=== PATIENT | male | born 1940 | race Caucasian/White ===

== ENCOUNTER 2021-03-06 11:44 | Emergency (ER) | payer MEDICARE, SELFPAY ==
[2021-03-06 11:54] VITALS: BP 162/85; PULSE 78; RESP 15; TEMP 36.5; O2SAT 95; BMI 37.4
--- NOTE | 2021-03-06 12:06 | XR_ITS ---
WS: [id number] LEFT KNEE: 3 VIEW(S) TECHNIQUE: AP, oblique(s) and lateral. HISTORY: knee pain after fall 1 week ago COMPARISON: None available. Mild narrowing of the joint spaces. 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 Small suprapatellar joint effusion and soft tissue edema. XR/XR knee LT 3V* [id number] IMPRESSION: 1. Mild tricompartment osteoarthritis. 2. No acute fracture identified. 3. Small suprapatellar joint effusion and soft tissue edema.
--- NOTE | 2021-03-06 13:05 | W.ED.EXTPRO ---
Documented by User: Antonia Wilson PA-C 03/06/21 14:30 HPI - Extremity Problem General: Chief complaint: Extremity Injury, Lower Stated complaint: Injury to Left Knee Time Seen by Provider: 03/06/21 12:07 Source: patient Mode of arrival: wheelchair Limitations: no limitations History of Present Illness: HPI Narrative: 80-year-old male presents to the ER today with for continued left knee pain. Patient reports a couple of weeks ago he twisted the left knee and then 1 week ago was outside and fell, landing on his left knee. Patient followed up with a clinic in [place] and had an x-ray done and was told there was some arthritis. Patient then reports twisting his knee again this last week and as of today he could hardly bear weight. Patient reports swelling and constant pain in the back of his knee. He denies any prior injury to this leg. Denies any redness. Patient is unable to take NSAIDs and does not take anything on a regular basis for pain. Patient denies any relevant past medical history. Patient's PCP is Dr. Kramer. Complaint: extremity pain and extremity swelling Onset (ago): week(s) Pain Consistency: constant Location: left and knee Severity scale (1-10): 8 Quality: aching Radiation: distal Relieving factors: nothing Exacerbating factors: range of motion, weight bearing and walking Associated symptoms: Deny chest pain, fever(s) or rash Review of Systems General: Reports: 10 or more systems reviewed and unremarkable except in HPI and below Const: Denies: fever(s), chills or body aches ENMT: Denies: throat pain, nasal discharge or nasal congestion Card: Denies: chest pain or palpitations Resp: Denies: dyspnea or wheezing GI: Denies: abdominal pain, nausea, vomiting, diarrhea or constipation : Denies: flank pain Musc: Reports: extremity pain (Left knee), extremity swelling (Left knee), joint swelling (Left knee) and limited range of motion (Left knee secondary to pain and swelling); Denies: neck pain, back pain or joint redness Skin/Breast: Denies: rash or erythema Neuro: Denies: headache(s) Psych: Denies: anxiety or depression Physical Exam Const: COMMON NORMALS: average body habitus and patient oriented x3 GENERAL APPEARANCE: cooperative and comfortable HENMT: COMMON NORMALS: normocephalic, Normal external nose present and moist oral mucous membranes HEAD & SCALP: normocephalic NOSE: Normal external nose present Eye: COMMON NORMALS: conjunctivae normal CONJUNCTIVA: Yes conjunctivae normal Neck/C-Spine: COMMON NORMALS: full ROM Resp: COMMON NORMALS: normal respiratory effort and No retractions EFFORT & INSPECTION: Yes able to speak in complete sentences Cardio: COMMON NORMALS: regular rate and regular rhythm RATE: regular rate RHYTHM: regular rhythm Extremity: COMMON NORMALS: no clubbing, cyanosis or edema, no calf tenderness and no pedal edema GENERAL: Yes normal exam except as noted LEFT LOWER EXTREMITY: Yes knee joint (No joint line tenderness noted, ligaments stable, posterior knee TTP) Left knee: Yes inspection, No ROM and Yes neurovascular exam Neuro: COMMON NORMALS: patient oriented x3 and moves all extremities Psych: COMMON NORMALS: mental status grossly normal, Normal thought process present, cooperative, normal affect and speech normal SPEECH: Yes normal speech THOUGHT PROCESS: Normal thought process present Skin: COMMON NORMALS: no rashes or lesions noted and no wounds GENERAL SKIN EXAM: no rashes or lesions noted Course ED course: Patient presents to the ER today for left knee pain. He has been seen for this in the past at a walk-in clinic and had an x-ray done and was told there was some arthritis. Patient does report twisting it since that time. We will do x-ray in ER and explained to patient that likely he would need an MRI and further work-up done by his PCP. Vital Signs: Vital signs: Vital Signs Temperature 97.7 F 03/06/21 11:54 Pulse Rate 72 03/06/21 13:38 Respiratory Rate 16 03/06/21 13:38 Blood Pressure 133/80 03/06/21 13:38 Pulse Oximetry 97 03/06/21 13:38 Critical Care Time Critical Care Time: Critical Care Time: No MDM - Extremity (Nontraumatic) MDM Narrative: Medical decision making narrative: 80-year-old male presents to the ER today for left knee pain. Patient has had multiple injuries on it in the last 1 to 2 weeks. Patient did have imaging done a week ago but has since twisted it. We did an x-ray in ER which indicates significant arthritis in addition to some effusion noted superior to the patella. This is the location where patient reports falling on his knee so likely this is related to a contusion. Knee appears stable on exam with pain mostly in the posterior compartment. Discussed findings with patient. Likely this is arthritis that is inflamed. Patient is unable to take anti-inflammatories at this time. He takes no medications regularly. We will send patient home with hydrocodone for pain as he is unable to bear weight at this time. Discussed with patient he needs to follow-up with his primary care doctor within 1 week to discuss further imaging and other possible treatments. Recommended rest, ice, and a knee brace. Return to the ER with any new or worsening symptoms. Imaging Data^: Other Xray: Radi[facility]'s impression: [facility] [address] [place] [address] XRay Report Signed Patient: Adonis Means Unit #: [id number] : 1940 Age/Sex: 80 / M ADM Date: 03/06/21 Loc: ER Room/Bed: Attending Dr: Ordering Provider/Ordering MD: Antonia Wilson Date of Service: 03/06/21 Procedure(s): XR knee LT 3V* [id number] Accession Number(s): [id number] Report Number: [id number] WS: [id number] LEFT KNEE: 3 VIEW(S) TECHNIQUE: AP, oblique(s) and lateral. HISTORY: knee pain after fall 1 week ago COMPARISON: None available. Mild narrowing of the joint spaces. Chondrocalcinosis in the medial and lateral compartments are enthesopathy at the distal quadriceps tendon and proximal patellar tendons. Small suprapatellar joint effusion and soft tissue edema. XR/XR knee LT 3V* [id number] IMPRESSION: 1. Mild tricompartment osteoarthritis. 2. No acute fracture identified. 3. Small suprapatellar joint effusion and soft tissue edema. Dictated By: Marilia Huang DO Signed By: Marilia Huang DO Signed Date/Time: 03/06/21 1235 DD/ 1234 Discharge Plan Discharge Patient Disposition: Home Clinical Impression: Acute pain of left knee Condition: Stable Prescriptions: New hydrocodone-acetaminophen 5-325 mg tablet 1 tab PO Q8H PRN (Reason: pain) Qty: 14 RF: 0 Discharge Orders: Discharge ED (Routine); Ordered 03/06/21 Ordered By: Antonia Wilson Referrals: Remington Kramer DO [Primary Care Provider] - Discharge Diet: Usual diet Discharge Activity: Limit activity as instructed Patient Instructions: Opioid Safety Activity Restrictions/Additional Instructions: Take hydrocodone as prescribed for pain. Rest, ice, elevation recommended. Elastic knee brace recommended. Follow-up with PCP in 7 to 10 days. Return to the ER with any new or worsening symptoms. Coding Level of Care Code ED Faa Certified Powerplant Mechanic for Chg Fwd Exam Comprehensive Documented by User: Holden Quarles DO 03/06/21 16:55 HPI - Extremity Problem General: Chief complaint: Extremity Injury, Lower Stated complaint: Injury to Left Knee Time Seen by Provider: 03/06/21 12:07 Course Vital Signs: Vital signs: Vital Signs Temperature 97.7 F 03/06/21 11:54 Pulse Rate 72 03/06/21 13:38 Respiratory Rate 16 03/06/21 13:38 Blood Pressure 133/80 03/06/21 13:38 Pulse Oximetry 97 03/06/21 13:38 MDM - Extremity (Nontraumatic) MDM Narrative: Medical decision making narrative: Chart reviewed and patient discussed with midlevel. Agree with assessment and plan. Discharge Plan Discharge Patient Disposition: Home Clinical Impression: Acute pain of left knee Condition: Stable Prescriptions: New hydrocodone-acetaminophen 5-325 mg tablet 1 tab PO Q8H PRN (Reason: pain) Qty: 14 RF: 0 Discharge Orders: Discharge ED (Routine); Ordered 03/06/21 Ordered By: Antonia Wilson Referrals: Remington Kramer DO [Primary Care Provider] - Discharge Diet: Usual diet Discharge Activity: Limit activity as instructed Patient Instructions: Opioid Safety Activity Restrictions/Additional Instructions: Take hydrocodone as prescribed for pain. Rest, ice, elevation recommended. Elastic knee brace recommended. Follow-up with PCP in 7 to 10 days. Return to the ER with any new or worsening symptoms. Coding Level of Care Code ED Faa Certified Powerplant Mechanic for Chg Fwd Exam Comprehensive
[2021-03-06 13:38] VITALS: BP 133/80; PULSE 72; RESP 16; O2SAT 97
== END 2021-03-06 13:39 | disposition home or self-care (01) ==
PROVIDERS: Emergency Provider Physician Assistant; PCP Family Medicine
DX: M25.562 Pain in left knee (principal)
CPT/HCPCS: 73562; 99282

== ENCOUNTER 2021-10-02 21:55 | Observation (INO) | payer MEDICARE, SELFPAY ==
[2021-10-02 22:58] VITALS: BMI 37.2
[2021-10-02 23:00] VITALS: BP 135/91; PULSE 125; RESP 16; TEMP 37.2; O2SAT 94
--- NOTE | 2021-10-02 23:04 | XRR_ITS ---
PROCEDURE INFORMATION: Exam: XR Chest Exam date and time: 10/02/2021 11:18 PM Age: 80 years old Clinical indication: Shortness of breath; Additional info: SOB TECHNIQUE: Imaging protocol: Radiologic exam of the chest. Views: 1 view. COMPARISON: No relevant prior studies available. FINDINGS: Lungs: Left lower lobe atelectasis versus infiltrate. Pleural spaces: Unremarkable. No pleural effusion. No pneumothorax. Heart/Mediastinum: Cardiomegaly. Bones/joints: Unremarkable. XR/XR chest 1V portable [id number] IMPRESSION: 1. Cardiomegaly. 2. Left lower lobe atelectasis versus infiltrate.
--- NOTE | 2021-10-02 23:04 | CTR_ITS ---
PROCEDURE INFORMATION: Exam: CT Head Without Contrast Exam date and time: 10/02/2021 11:15 PM Age: 80 years old Clinical indication: Walking, difficulty and weakness, extremity; Bilateral TECHNIQUE: Imaging protocol: Computed tomography of the head without contrast. Radiation optimization: All CT scans at this facility use at least one of these dose optimization techniques: automated exposure control; mA and/or kV adjustment per patient size (includes targeted exams where dose is matched to clinical indication); or iterative reconstruction. COMPARISON: No relevant prior studies available. RADIATION DOSE METRICS: Total DLP (mGy-cm): 995.44 FINDINGS: Brain: Large amount of diffuse white matter disease likely reflecting chronic microvascular ischemic changes. Cerebral ventricles: No ventriculomegaly. Paranasal sinuses: Right maxillary sinus 8.7 mm mucous retention cyst versus polyp incompletely visualized. Mastoid air cells: Visualized mastoid air cells are well aerated. Bones/joints: Unremarkable. No acute fracture. Soft tissues: Unremarkable. CT/CT head wo con* [id number] IMPRESSION: Negative for intracranial hemorrhage or mass effect.
--- NOTE | 2021-10-02 23:05 | ECG_ITS ---
[facility] Test Date: 2021-10-02 Pat Name: Adonis Means Department: Room: Gender: Male Regional Hr Manager: : 1940 Requested By: Rosie Gan Order Number: [id number] Wendy MD: Maryam Cárdenas M.D. Measurements Intervals [place] Rate: 102 P: 39 MA: 197 QRS: 26 QRSD: 138 T: 6 QT: 361 QTc: 472 Interpretive Statements SINUS TACHYCARDIA RIGHT BUNDLE BRANCH BLOCK [120+ ms QRS DURATION, UPRIGHT V1, 40+ ms S IN I/aVL/V4/V5/V6] No previous ECG available for comparison Electronically Signed On 10-03-2021 22:25:34 CDT by Maryam Cárdenas M.D. [id number]
--- NOTE | 2021-10-02 23:24 | ED_ITS ---
HPI - Weakness General: Chief complaint: Weakness Stated complaint: weakness Time Seen by Provider: 10/02/21 22:58 Source: patient and EMS Mode of arrival: EMS Limitations: no limitations History of Present Illness: 80-year-old male states that he has been having increasing weakness over the last 2 months. He states that he got much worse today and he states he not been able to get out of bed or ambulate at all. He does live at home with family states that he was unable to get out of bed today. He denies any pain anywhere. He is tachycardic here he has had some low-grade fevers as well. Denies any vomiting or diarrhea. He has had no confusion. He is able answer all my questions appropriately. Associated symptoms: Denies chest pain, chills, dysuria, easy bruising, fever(s), nausea or vomiting Review of Systems Const: Denies: fever(s), chills, body aches or change in appetite Eyes: Denies: blurry vision or eye discomfort ENMT: Denies: throat pain or dental pain Card: Denies: chest pain Resp: Denies: dyspnea GI: Denies: abdominal pain, nausea, vomiting or diarrhea : Denies: dysuria Musc: Denies: neck pain or back pain Skin/Breast: Denies: rash Neuro: Reports: weakness in extremities Psych: Denies: depression Chandana/Lymph: Denies: easy bruising All/Imm: Denies: urticaria PFS ED PFSH: Surgical History No pertinent past surgical history Social History (Updated 10/02/21 @ 23:25 by Rosie Gan MD) Substance/Drug Use: never Physical Exam Const: COMMON NORMALS: no acute distress, patient oriented x3 and healthy appearing HENMT: COMMON NORMALS: normocephalic and atraumatic HEAD & SCALP: normocep halic and atraumatic Eye: COMMON NORMALS: Equal, round and reactive pupils present and EOMs intact bilaterally PUPIL: Yes Equal, round and reactive pupils present Neck/C-Spine: COMMON NORMALS: full ROM and supple Chest: COMMONS NORMALS: normal inspection of the chest and normal palpation of entire chest wall Resp: COMMON NORMALS: normal respiratory effort, No retractions, No use of accessory muscles and clear to auscultation bilaterally AUSCULTATION: clear to auscultation bilaterally Cardio: COMMON NORMALS: regular rhythm and No murmurs present (Cardio) R ATE: tachycardic RHYTHM: regular rhythm GI: COMMON NORMALS: Normal to inspection, nondistended, normoactive bowel sounds present, Soft to palpation, non-tender and no masses PALPATION: Yes Soft to palpation Extremity: COMMON NORMALS: normal to inspection and full ROM Neuro: COMMON NORMALS: patient oriented x3, moves all extremities and no focal motor deficits Psych: COMMON NORMALS: mental status grossly normal, Normal thought process present and cooperative THOUGHT PROCESS: Normal thought process present Skin: COMMON NORMALS: no rashes or lesions noted and no wounds GENERAL SKIN EXAM: no rashes or lesions noted Course Vital Signs: Vital signs: Vital Signs Temperature 99.0 F 10/02/21 23:00 Pulse Rate 125 H 10/02/21 23:00 Respiratory Rate 16 10/02/21 23:00 Blood Pressure 135/91 10/02/21 23:00 Pulse Oximetry 94 10/02/21 23:00 MDM - Weakness Medical Decision Making Patient presents with generalized weakness with some likely dehydration he is hyponatremic as well with an elevated lactate. Did have elevated D-dimer CT showed no signs of pulm embolism or pneumonia. Did get blood cultures and started IV antibiotics in case of sepsis. Urinalysis here is normal as well besides some ketones. His lactate is improving after IV fluids his heart rate is improving as well I spoke to hospitalist will admit at this time. Lab Data : 10/02/21 23:33 10/02/21 23:33 Radiology Impressions Chest X-Ray 10/02/21 23:04 IMPRESSION: 1. Cardiomegaly. 2. Left lower lobe atelectasis versus infiltrate. Head CT 10/02/21 23:04 IMPRESSION: Negative for intracranial hemorrhage or mass effect. Chest CTA 10/03/21 00:09 IMPRESSION: 1. No pulmonary embolism identified. 2. No significant airspace consolidation concerning for pneumonia. 3. Right hilar lymphadenopathy versus mass measuring 2.7 x 1.7 cm. Recommend follow-up evaluation. 4. Cholelithiasis without evidence of acute cholecystitis. Laboratory Results WBC 12.2 10^3/uL (4.0-10.0) H 10/02/21 23:33 RBC 4.71 10^6/uL (4.1-5.3) 10/02/21 23: Hgb 15.1 g/dL (11.7-16.6) 10/02/21 23: Hct 43.6 % (42.0-52.0) 10/02/21 23: MCV 92.6 fl (80-94) 10/02/21 23: MCH 32.1 pg (28.0-34.0) 10/02/21 23: MCHC 34.6 g/dL (30.0-36.0) 10/02/21 23: RDW 12.7 % (12.1-15.1) 10/02/21: Plt Count 153 10^3/cmm (130-400) 10/02/21 23: MPV 10.3 fL (7.4-10.4) 10/02/21 23: Neut % (Auto) 91.3 % 10/02/21 23: Lymph % (Auto) 4.1 % 10/02/21 23: [place] % (Auto) 3.7 % 10/02/21 23: Eos % (Auto) 0.0 % 10/02/21 23: Baso % (Auto) 0.1 % 10/02/21: Neut # (Auto) 11.16 10^3/uL (1.8-7.7) H 10/02/21: Lymph # (Auto) 0.5 10^3/uL (0.8-4.8) L 10/02/21 23: [place] # (Auto) 0.5 10^3/uL (0.2-0.9) 10/02/21 23: Eos # (Auto) 0.0 10^3/uL (0.0-0.8) 10/02/21: Baso # (Auto) 0.0 10^3/uL (0.0-0.1) 10/02/21 23: Nucleated RBC % (auto) 0 % 10/02/21 23: Nucleated RBCs # 0.0 /100WBC 10/02/21 23: PT 14.60 SECONDS (12.1-14.9) 10/02/21 23:33 INR 1.11 (0.8-1.2) 10/02/21 23:33 D-Dimer 1.35 ug/mIFEU (0-0.59) H 10/02/21 23:33 Sodium 125 mmol/L (136-145) L 10/02/21 23:33 Potassium 3.8 mmol/L (3.5-5.1) 10/02/21 23:33 Chloride 90 mmol/L (98-107) L 10/02/21 23:33 Carbon Dioxide 23 mmol/L (22-29) 10/02/21 23:33 Anion Gap 15.8 (5-19) 10/02/21 23:33 BUN 23 mg/dL (8-23) 10/02/21 23:33 Creatinine 1.2 mg/dL (0.7-1.2) 10/02/21 23:33 GFR Calculation Not Reportable 10/02/21 23: Glucose 249 mg/dL (65-115) H 10/02/21 23:33 Calculated Osmolality 272 mOsm/kg (285-295) L 10/02/21 23:33 Lactate 3.4 mmol/L (0.5-2.2) H 10/03/21 02:21 Calcium 8.6 mg/dL (8.5-10.5) 10/02/21 23:33 Magnesium 1.6 mg/dL (1.7-2.3) L 10/02/21 23:33 Total Bilirubin 0.5 mg/dL (0.15-1.2) 10/02/21 23:33 AST 66 U/L (0-40) H 10/02/21 23:33 ALT 61 U/L (0-41) H 10/02/21 23:33 Alkaline Phosphatase 80 IU/L (40-130) 10/02/21 23:33 NT-Pro-B Natriuret Pep 146 pg/mL (0-450) 10/02/21 23:33 Total Protein 7.7 g/dL (6.6-8.7) 10/02/21 23:33 Albumin 4.1 g/dL (3.5-5.2) 10/02/21 23:33 Globulin 3.6 g/dL (1.3-4.6) 10/02/21 23:33 Urine Color Yellow (Yellow) 10/03/21 01:30 Urine Appearance Clear (CLEAR) 10/03/21 01:30 Urine pH 5 (5-7) 10/03/21 01:30 Ur Specific [place] 1.025 (1.005-1.030) 10/03/21 01:30 Urine Protein Trace (Negative) 10/03/21 01:30 Urine Glucose (UA) 1+ (Normal) H 10/03/21 01:30 Urine Ketones 1+ (Negative) H 10/03/21 01:30 Urine Blood Neg (Negative) 10/03/21 01:30 Urine Nitrate Negative (Negative) 10/03/21 01:30 Urine Bilirubin 1+ (Negative) H 10/03/21 01:30 Urine Urobilinogen Norm mg/dL (Negative) 10/03/21 01:30 Ur Leukocyte Esterase Negative (Negative) 10/03/21 01:30 Urine RBC 0-4 /hpf (0-2) H 10/03/21 01:30 Urine WBC 0-4 /hpf (0-5) H 10/03/21 01:30 Ur Squamous Epith Cells 0-4 /hpf (0-5) H 10/03/21 01:30 Amorphous Sediment Not Reportable 10/03/21 01:30 Urine Bacteria Trace /hpf (NONE) 10/03/21 01:30 Urine Mucus 2+ /hpf 10/03/21 01:30 SARS-CoV-2 Ag (Rapid) Negative (Negative) 10/03/21 00:15 EKG Data EKG 1: I personally reviewed and interpreted this EKG as follows: EKG interpretation date: 10/03/21 EKG interpretation time: 23:27 Interpretation: sinus tach hr [address] or t wave abnormalities qrs 138 qtc 420 Discharge Plan Discharge Patient Disposition: Admitted As Inpatient Admit Provider: Ralf Gonzales Clinical Impression: Weakness, Hyponatremia Condition: Stable Coding Level of Care Code ED Pickle Water Pump Operator for Chg Fwd Exam Comprehensive
[2021-10-03 00:02] LABS: Basophils % 0.1 %; Hematocrit 43.6 % (42.0-52.0); Hemoglobin 15.1 g/dL (11.7-16.6); Lymphocytes # 0.5 10^3/uL (0.8-4.8); Lymphocytes % 4.1 %; Mean Corpuscular HGB Conc 34.6 g/dL (30.0-36.0); Mean Corpuscular Hemoglobin 32.1 pg (28.0-34.0); Mean Corpuscular Volume 92.6 fl (80-94); Mean Platelet Volume 10.3 fL (7.4-10.4); Monocytes # 0.5 10^3/uL (0.2-0.9); Monocytes % 3.7 %; Neutrophils # 11.16 10^3/uL (1.8-7.7); Neutrophils % 91.3 %; Nucleated Red Blood Cells % 0 %; Platelet Count 153 10^3/cmm (130-400); Red Blood Count 4.71 10^6/uL (4.1-5.3); Red Cell Distribution Width 12.7 % (12.1-15.1); White Blood Count 12.2 10^3/uL (4.0-10.0)
[2021-10-03 00:05] LABS: INR 1.11 (0.8-1.2)
[2021-10-03 00:08] LABS: D Dimer 1.35 ug/mIFEU (0-0.59)
--- NOTE | 2021-10-03 00:09 | CTR_ITS ---
PROCEDURE INFORMATION: Exam: CTA Chest With Contrast Exam date and time: 10/03/2021 2:05 AM Age: 80 years old Clinical indication: Shortness of breath; Additional info: SOB TECHNIQUE: Imaging protocol: Computed tomographic angiography of the chest with contrast. 3D rendering (Not supervised by radiologist): MIP and/or 3D reconstructed images were created by the technologist. Radiation optimization: All CT scans at this facility use at least one of these dose optimization techniques: automated exposure control; mA and/or kV adjustment per patient size (includes targeted exams where dose is matched to clinical indication); or iterative reconstruction. Contrast material: OMNI 350; Contrast volume: 75 ml; Contrast route: INTRAVENOUS (IV); COMPARISON: CR (CHEST, ) 10/02/2021 11:18 PM RADIATION DOSE METRICS: Total DLP (mGy-cm): 617.12 FINDINGS: Pulmonary arteries: No central or segmental filling pulmonary artery filling defects are identified. Aorta: Unremarkable. The aorta is normal in course and caliber. Lungs: Minimal dependent bibasilar atelectasis.No significant airspace consolidation concerning for pneumonia. Pleural spaces: No pneumothorax. No pleural effusion. Heart: Coronary artery calcifications noted. Lymph nodes: Mildly prominent but not significantly enlarged right posterior paratracheal lymph node (axial series 2, image 95). Multiple additional nonenlarged mediastinal lymph nodes identified. Right hilar lymphadenopathy versus mass measuring 2.7 x 1.7 cm (axial series 2, image 96). Gallbladder and bile ducts: Multiple calcified gallstones noted. No gallbladder wall thickening or pericholecystic fat stranding or fluid. Bones/joints: Multilevel degenerative changes in the spine. Soft tissues: Unremarkable. CT/CT angio chest PE protcl [id number] IMPRESSION: 1. No pulmonary embolism identified. 2. No significant airspace consolidation concerning for pneumonia. 3. Right hilar lymphadenopathy versus mass measuring 2.7 x 1.7 cm. Recommend follow-up evaluation. 4. Cholelithiasis without evidence of acute cholecystitis.
[2021-10-03 00:19] LABS: Alanine Aminotransferase 61 U/L (0-41); Albumin Level 4.1 g/dL (3.5-5.2); Alkaline Phosphatase 80 IU/L (40-130); Anion Gap 15.8 (5-19); Aspartate Amino Transferase 66 U/L (0-40); Blood Urea Nitrogen 23 mg/dL (8-23); Calcium 8.6 mg/dL (8.5-10.5); Carbon Dioxide 23 mmol/L (22-29); Chloride 90 mmol/L (98-107); Globulin 3.6 g/dL (1.3-4.6); Glucose 249 mg/dL (65-115); Lactate (Lactic Acid level) 4.4 mmol/L (0.5-2.2); Magnesium 1.6 mg/dL (1.7-2.3); NT Pro B Type Natriuretic Pept 146 pg/mL (0-450); Osmolality Calculated 272 mOsm/kg (285-295); Potassium 3.8 mmol/L (3.5-5.1); Sodium 125 mmol/L (136-145); Total Bilirubin 0.5 mg/dL (0.15-1.2); Total Protein 7.7 g/dL (6.6-8.7)
[2021-10-03] MEDS: sodium chloride 0.9% 1,000 ML 999 ML IV ×2 (00:50→01:09)
[2021-10-03] MEDS: acetaminophen 325 mg Tablet 650 MG PO (00:50)
[2021-10-03 00:57] LABS: SARS Covid-2 Antigen Negative (Negative)
[2021-10-03] MEDS: cefTRIAXone 1,000 MG in sodium chloride 0.9% (plus) 50 ML 100 MG IV (01:09)
[2021-10-03 01:54] LABS: Add Urine Microscopic? YES; Bilirubin Urine 1+ (Negative); Blood Urine Neg (Negative); Glucose Urine UA 1+ (Normal); Ketones Urine 1+ (Negative); Leukocyte Esterase Urine Negative (Negative); Nitrate Urine Negative (Negative); Protein Urine Trace (Negative); Specific Gravity, Urine 1.025 (1.005-1.030); Urine Appearance Clear (CLEAR); Urine Color Yellow (Yellow); Urobilinogen Urine Norm (Negative); pH Urine 5 (5-7)
[2021-10-03 01:55] LABS: Add Urine Culture? No; Bacteria Urine TRACE /hpf; Mucus Urine 2+ /hpf; RBC Urine 0-4 /hpf (0-2); Squamous Epithelial Cell Urine 0-4 /hpf (0-5); WBC Urine 0-4 /hpf (0-5)
[2021-10-03] MEDS: iohexol 350 mg/mL 100 mL Btl IV (02:22)
[2021-10-03] MEDS: azithromycin 500 MG in sodium chloride 0.9% 250 ML 250 MG IV (02:24)
[2021-10-03 02:50] LABS: Lactate (Lactic Acid level) 3.4 mmol/L (0.5-2.2)
--- NOTE | 2021-10-03 04:52 | PM.HP ---
Providers/Chief Complaint Admitting Physician: Ralf Gonzales MD Primary Care Provider: Remington Kramer DO Chief Complaint: weakness History of Present Illness Adonis Means is a 80 year old male with past medical history diabetes Was brought in with chief complaint of worsening generalized weakness going on for the last 2 months, Today came to the hospital because the generalized weakness has worsened to the point that he has not been able to get out of the bed, or ambulate.He is also complaining of difficulty with ambulation, says that he stumbles at times. Denies any loss of weight, loss of appetite, cough fever, he is a non-smoker. Upon arrival in the ER he was worked up for above-mentioned: Pertinent imaging studies: CT head without contrast: No acute intracranial pathology CTA chest: No infiltrates no pulmonary embolism, Right hilar lymphadenopathy versus mass measuring 2.7 x 1.7 cm. EKG: Sinus tachycardia Pertinent labs: WBC 12.2, H&H: 15/ 43 plt : 153 , serum sodium 135 serum potassium 3.8 BUN serum creatinine 23 / 1.2 , lactic acid 4.4-> Repeat lactic acid 3.4, urinalysis clean Review of Systems General: Reports: 10 or more systems reviewed and unremarkable except in HPI and below Const: Denies: fever(s), chills, body aches, change in appetite or diaphoresis Card: Denies: palpitations, edema, swelling of feet/ankles, dyspnea on exertion, orthopnea or leg pain with exertion Resp: Denies: dyspnea, productive cough, wheezing or pain on inspiration GI: Denies: abdominal pain, nausea, vomiting, diarrhea or constipation : Denies: flank pain or difficulty urinating Musc: Denies: back pain, extremity pain or extremity swelling Neuro: Reports: difficulty walking; Denies: headache(s) or confusion Medications/Allergies Home Medications Medication Instructions Recorded Confirmed Last Taken Type atorvastatin 10 mg tablet 10 mg PO DAILY 10/03/21 10/03/21 Unknown History doxazosin 4 mg tablet 4 mg PO BEDTIME #1 tab 10/03/21 Unknown Rx finasteride 5 mg tablet 10 mg PO DAILY 10/03/21 10/03/21 Unknown History glimepiride 2 mg tablet 2 mg PO DAILY 10/03/21 10/03/21 Unknown History levothyroxine 137 mcg tablet 137 mcg PO DAILY 10/03/21 10/03/21 Unknown History Allergies Allergy/AdvReac Type Severity Reaction Status Date / Time NSAIDS (Non-Steroidal Allergy ALGY-Anaphy Verified 10/03/21 08:57 Anti-Inflamma laxis Penicillins Allergy ALGY-Rash Verified 10/03/21 08:57 PFSH Acute PFSH: Surgical History No pertinent past surgical history Vitals/I&O/Wt Last Vital Signs Temp 99.0 F 10/02/21 23:00 Pulse 125 H 10/02/21 23:00 Resp 16 10/02/21 23:00 BP 135/91 10/02/21 23:00 Pulse Ox 94 10/02/21 23:00 Weight last 48 hrs Weight 111.13 kg Physical Exam Const: COMMON NORMALS: patient oriented x3 HENMT: COMMON NORMALS: normocephalic and atraumatic HEAD & SCALP: normocephalic and atraumatic Chest: CHEST: Yes Symmetrical chest wall rise Resp: COMMON NORMALS: normal respiratory effort, No retractions, No use of accessory muscles and clear to auscultation bilaterally EFFORT & INSPECTION: Yes symmetric chest movement AUSCULTATION: clear to auscultation bilaterally Cardio: COMMON NORMALS: regular rate, regular rhythm, S1 normal heart sound present, S2 normal heart sound present, No gallops present (Cardio), No murmurs present (Cardio), No rub (Cardio) and Peripheral pulses 2+ throughout RATE: regular rate RHYTHM: regular rhythm HEART SOUNDS: S1 normal heart sound present and S2 normal heart sound present PERIPHERAL PULSES: Peripheral pulses 2+ throughout GI: COMMON NORMALS: Normal to inspection, nondistended, normoactive bowel sounds present, Soft to palpation, non-tender, No hepatosplenomegaly present and no masses AUSCULTATION: Yes normoactive bowel sounds PALPATION: Yes Soft to palpation and Yes No hepatosplenomegaly present RECTAL EXAM: Yes deferred Extremity: COMMON NORMALS: no clubbing, cyanosis or edema and no pedal edema Neuro: COMMON NORMALS: patient oriented x3 Data : 10/02/21 23:33 10/03/21 08:35 Micro: Microbiology 10/02/21 23:36 Blood Culture - Preliminary Blood SPECIMEN COLLECTED 10/02/21 23:33 Blood Culture - Preliminary Blood SPECIMEN COLLECTED A&P Assessment and plan (1) Weakness: Status: Acute (2) Hyponatremia: Status: Acute (3) Lactic acid acidosis: Status: Acute Plan 80 year old male with past medical history diabetes Was brought in with chief complaint of worsening generalized weakness going on for the last 2 months, today came to the hospital because the generalized weakness has worsened to the point that he has not been able to get out of the bed, or ambulate.He is also complaining of difficulty with ambulation, says that he stumbles at times. Assessment: Hyponatremia Lactic acidosis Dehydration Right hilar lymphadenopathy versus mass measuring 2.7 x 1.7 cm Sinus tachycardia Plan: Follow blood culture Urine culture Continue IV hydration with normal saline 125 cc an hour Follow procalcitonin Follow repeat lactic acid Monitor BMP every 4 hours TSH Cortisol Random urine sodium Urine specific gravity: 1.02 Urine osmolality Serum osmolality Patient will need repeat imaging study for right hilar finding. Physical therapy Orthostatic vital signs check CODE STATUS: Full code DVT prophylaxis: On Lovenox Attestations Medical Necessity Statement*: Patient is to be in hospital for management of hyponatremia lactic acidosis, need for IV hydration.Anticipated LOS Greater then 2 midnights. Time Spent in Patient Care: Greater than 35 minutes (>than 50% of time spent in counselling and/or direct pt care on unit). 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
[2021-10-03 05:25] VITALS: PULSE 88; O2SAT 96
[2021-10-03 06:37] VITALS: BP 135/91; PULSE 88; RESP 18; O2SAT 93
[2021-10-03] MEDS: sodium chloride 0.9% 1,000 ML 125 ML IV (06:37)
[2021-10-03] MEDS: enoxaparin 40 mg/0.4 mL Syringe SUBCUT (06:37)
[2021-10-03 07:40] LABS: Glucose Point of Care 148 mg/dL (70-110)
[2021-10-03 07:49] LABS: Urine Random Sodium 47 mmol/L
[2021-10-03] MEDS: insulin lispro 100 unit/1 mL SUBCUT ×2 (07:58→11:56)
--- NOTE | 2021-10-03 08:40 | XR_ITS ---
WS: [id number] Exam: XR lumbar spine 2-3V* [id number] Date/Time of Exam: 10/03/2021 8:49 AM Reason For Exam: leg weakness No acute fracture or dislocation. There is interbody fusion of the spine from L4 to S1 with pedicle s crews and posterior rods. Disc implants are noted at L4-5 and L5-S1. Mild spondylosis. Facet DJD at a ll levels. No sign of hardware failure. Mild spondylosis. Radiographic contrast noted in the kidneys and urinary bladder. Partial fusion of the left SI joint. XR/XR lumbar spine 2-3V* [id number] IMPRESSION: 1. Intact lumbosacral fusion in good alignment. 2. No fracture or dislocation. 3. Degenerative changes.
[2021-10-03 08:46] VITALS: BP 135/91; PULSE 88; RESP 18; TEMP 37.2; O2SAT 93
[2021-10-03 09:04] VITALS: BP 120/56; BP 125/64; BP 137/74; PULSE 75; PULSE 87; PULSE 91
[2021-10-03 09:12] LABS: Cortisol Random 26.35 ug/dL (2.47-19.5); Hepatitis A Antibody IgM Non-Reactive (Nonreactive); Hepatitis B Core IgM Non-Reactive (Nonreactive); Hepatitis B Surface Antigen Non-Reactive (Nonreactive); Hepatitis C Virus Antibody Non-Reactive (Nonreactive)
[2021-10-03 09:13] LABS: Anion Gap 13.6 (5-19); Blood Urea Nitrogen 19 mg/dL (8-23); Calcium 7.6 mg/dL (8.5-10.5); Carbon Dioxide 23 mmol/L (22-29); Chloride 101 mmol/L (98-107); Glucose 157 mg/dL (65-115); Osmolality Calculated 284 mOsm/kg (285-295); Potassium 3.6 mmol/L (3.5-5.1); Sodium 134 mmol/L (136-145); Thyroid Stimulating Hormone 6.07 uIU/mL (0.27-4.20)
[2021-10-03] MEDS: magnesium sulfate premix 2 GM/50 ML PIGGYBACK IV (09:24)
[2021-10-03 09:31] LABS: Creatine Phosphokinase 187 U/L (39-308)
[2021-10-03 09:40] LABS: Estmated Average Glucose 203; Hemoglobin A1C 8.7 % (4.0-6.0)
[2021-10-03 11:44] LABS: Adenovirus Not Detected (NOT DETECT); Chlamydia Pneumoniae Not Detected (NOT DETECT); Coronavirus 229E,HKU1,NL63,OC4 Not Detected (NOT DETECT); Human Metapneumovirus Not Detected (NOT DETECT); Human Rhinovirus/Enterovirus Not Detected (NOT DETECT); Influenza A Not Detected (NOT DETECT); Influenza A H1 Not Detected (NOT DETECT); Influenza A H1-2009 Not Detected (NOT DETECT); Influenza A H3 Not Detected (NOT DETECT); Influenza B Not Detected (NOT DETECT); Mycoplasma Pneumoniae Not Detected (NOT DETECT); Parainfluenza Virus Type 1 Not Detected (NOT DETECT); Parainfluenza Virus Type 2 Not Detected (NOT DETECT); Parainfluenza Virus Type 3 Not Detected (NOT DETECT); Parainfluenza Virus Type 4 Not Detected (NOT DETECT); Respiratory Syncytial Virus A Not Detected (NOT DETECT); Respiratory Syncytial Virus B Not Detected (NOT DETECT); SARS-COV-2 Not Detected (NOT DETECT)
[2021-10-03 11:54] LABS: Glucose Point of Care 162 mg/dL (70-110)
--- NOTE | 2021-10-03 13:05 | P.DS_ITS ---
Discharge Providers Date of Admission: 10/03/21 05:19 Date of Discharge: October 03, 2021 Attending Provider at Admission: Ralf Gonzales MD Attending Provider at Discharge: Srinivasa Solomon MD Primary Care Provider: Remington Kramer DO Diagnoses at Discharge Discharge Diagnosis (1) Weakness: Status: Acute (2) Hyponatremia: Status: Acute (3) Lactic acid acidosis: Status: Acute Reason for Visit Reason for Visit: weakness Hospital Course Hospital Course Adonis is an 80-year-old white male who presented to the emergency department with significant weakness. This is gotten acutely worse and he was not able to ambulate after he started having vomiting and diarrhea. Many family members were sick with this after eating at a wedding. On arrival to the emergency department he was found to be weak, and perhaps slightly confused. Laboratory was significant for an elevated dimer, low sodium at 125, low chloride at 90, and elevated lactic acid. Liver function tests were also slightly elevated. Cortisol was checked and normal. TSH minorly elevated. He is on chronic thyroid hormone. Urinalysis showed no infection. Chest x-ray and infiltrate. This was not seen on CTA done later for elevated dimer. He did have an enlarged lymph node, right hilar area. Head CT was done demonstrating no acute change, and a lumbar spine x-ray was done demonstrating no fracture, or bony invasion. He was placed in observation in the hospital and rehydrated. Therapy was ordered to assess his level of weakness. The following day his sodium was near normal and he was feeling much better. He had no episodes of vomiting and diarrhea. He was able to ambulate with a walker, and therapy thought he was safe from a physical therapy standpoint to go home. Static blood pressures were performed and the patient was not orthostatic after hydration. Therefore, he was discharged home on October 03. I recommended follow-up with his primary care provider regarding his right hilar adenopathy, whether this would need to be reimaged in the future. He will reduce his dose of doxazosin to 4 mg. He had both a 4 mg and 8 mg pill in his bag. He will discontinue his metformin currently as he recently received radiological dye, and was also noted to have a high lactic acid level and diarrhea on admission. His primary will do decide whether this should be readded in the future. Family was present, to ask questions. I also encouraged them to have him screened for dementia in the future, and perhaps undergo a sleep study. Physical Exam Narrative: General exam no distress Neck is supple no lymphadenopathy or thyromegaly Cardiovascular regular rate and rhythm without murmur Lungs clear Abdomen is soft with positive bowel sounds, obese Extremities trace edema bilaterally no cyanosis or clubbing Discharge Data Studies Completed and Pending Completed Studies During Hospitalization Category Date Time Status CT head wo con* [id number] Urgent Cat Scan 10/02/21 23:04 Completed CTA chest [CT angio chest PE protcl [id number]] Urgent Cat Scan 10/03/21 00:09 Completed XR chest 1V portable [id number] Urgent Exams 10/02/21 23:04 Completed XR lumbar spine 2-3V* [id number] Routine Exams 10/03/21 08:40 Completed Pending at discharge Category Date Time Status Basic Metabolic Panel AM LABS Lab 10/04/21 04:00 Ordered Basic Metabolic Panel AM LABS Lab 10/05/21 04:00 Ordered Basic Metabolic Panel AM LABS Lab 10/06/21 04:00 Ordered Blood Culture Stat Lab 10/02/21 23:36 Results Complete Blood Count w/Auto AM LABS Lab 10/04/21 04:00 Ordered Complete Blood Count w/Auto AM LABS Lab 10/05/21 04:00 Ordered Complete Blood Count w/Auto AM LABS Lab 10/06/21 04:00 Ordered Osmolality Serum Routine Lab 10/03/21 05:19 Received Osmolality Urine Routine Lab 10/03/21 01:30 Received Procalcitonin AM LABS Lab 10/04/21 04:00 Ordered Radiology Impressions Chest X-Ray 10/02/21 23:04 IMPRESSION: 1. Cardiomegaly. 2. Left lower lobe atelectasis versus infiltrate. Head CT 10/02/21 23:04 IMPRESSION: Negative for intracranial hemorrhage or mass effect. Chest CTA 10/03/21 00:09 IMPRESSION: 1. No pulmonary embolism identified. 2. No significant airspace consolidation concerning for pneumonia. 3. Right hilar lymphadenopathy versus mass measuring 2.7 x 1.7 cm. Recommend follow-up evaluation. 4. Cholelithiasis without evidence of acute cholecystitis. Lumbar Spine X-Ray 10/03/21 08:40 IMPRESSION: 1. Intact lumbosacral fusion in good alignment. 2. No fracture or dislocation. 3. Degenerative changes. Laboratory Results WBC 12.2 10^3/uL (4.0-10.0) H 10/02/21 23: RBC 4.71 10^6/uL (4.1-5.3) 10/02/21 23: Hgb 15.1 g/dL (11.7-16.6) 10/02/21 23: Hct 43.6 % (42.0-52.0) 10/02/21 23: MCV 92.6 fl (80-94) 10/02/21 23: MCH 32.1 pg (28.0-34.0) 10/02/21 23: MCHC 34.6 g/dL (30.0-36.0) 10/02/21: RDW 12.7 % (12.1-15.1) 10/02/21: Plt Count 153 10^3/cmm (130-400) 10/02/21 23: MPV 10.3 fL (7.4-10.4) 10/02/21 23: Neut % (Auto) 91.3 % 10/02/21 23: Lymph % (Auto) 4.1 % 10/02/21 23: [place] % (Auto) 3.7 % 10/02/21 23: Eos % (Auto) 0.0 % 10/02/21: Baso % (Auto) 0.1 % 10/02/21: Neut # (Auto) 11.16 10^3/uL (1.8-7.7) H 10/02/21: Lymph # (Auto) 0.5 10^3/uL (0.8-4.8) L 10/02/21 23: [place] # (Auto) 0.5 10^3/uL (0.2-0.9) 10/02/21 23: Eos # (Auto) 0.0 10^3/uL (0.0-0.8) 10/02/21: Baso # (Auto) 0.0 10^3/uL (0.0-0.1) 10/02/21: Nucleated RBC % (auto) 0 % 10/02/21: Nucleated RBCs # 0.0 /100WBC 10/02/21 23: PT 14.60 SECONDS (12.1-14.9) 10/02/21 23:33 INR 1.11 (0.8-1.2) 10/02/21 23:33 D-Dimer 1.35 ug/mIFEU (0-0.59) H 10/02/21 23:33 Sodium 134 mmol/L (136-145) L 10/03/21 08:35 Potassium 3.6 mmol/L (3.5-5.1) 10/03/21 08:35 Chloride 101 mmol/L (98-107) 10/03/21 08:35 Carbon Dioxide 23 mmol/L (22-29) 10/03/21 08:35 Anion Gap 13.6 (5-19) 10/03/21 08:35 BUN 19 mg/dL (8-23) 10/03/21 08:35 Creatinine 1.0 mg/dL (0.7-1.2) 10/03/21 08:35 GFR Calculation Not Reportable 10/03/21 08:35 Glucose 157 mg/dL (65-115) H 10/03/21 08:35 POC Glucose 162 mg/dL (70-110) H 10/03/21 11:51 Estimat Average Glucose 203 10/02/21 23:33 Hemoglobin A1c 8.7 % (4.0-6.0) H 10/02/21 23:33 Calculated Osmolality 284 mOsm/kg (285-295) L 10/03/21 08:35 Lactate 3.4 mmol/L (0.5-2.2) H 10/03/21 02:21 Calcium 7.6 mg/dL (8.5-10.5) L 10/03/21 08:35 Magnesium 1.6 mg/dL (1.7-2.3) L 10/02/21 23:33 Total Bilirubin 0.5 mg/dL (0.15-1.2) 10/02/21 23:33 AST 66 U/L (0-40) H 10/02/21 23:33 ALT 61 U/L (0-41) H 10/02/21 23:33 Alkaline Phosphatase 80 IU/L (40-130) 10/02/21 23:33 Creatine Kinase 187 U/L (39-308) 10/03/21 08:35 NT-Pro-B Natriuret Pep 146 pg/mL (0-450) 10/02/21 23:33 Total Protein 7.7 g/dL (6.6-8.7) 10/02/21 23:33 Albumin 4.1 g/dL (3.5-5.2) 10/02/21 23:33 Globulin 3.6 g/dL (1.3-4.6) 10/02/21 23:33 TSH 6.07 uIU/mL (0.27-4.20) H 10/03/21 08:35 Random Cortisol 26.35 ug/dL (2.47-19.5) H 10/02/21 23:33 Urine Color Yellow (Yellow) 10/03/21 01:30 Urine Appearance Clear (CLEAR) 10/03/21 01:30 Urine pH 5 (5-7) 10/03/21 01:30 Ur Specific [place] 1.025 (1.005-1.030) 10/03/21 01:30 Urine Protein Trace (Negative) 10/03/21 01:30 Urine Glucose (UA) 1+ (Normal) H 10/03/21 01:30 Urine Ketones 1+ (Negative) H 10/03/21 01:30 Urine Blood Neg (Negative) 10/03/21 01:30 Urine Nitrate Negative (Negative) 10/03/21 01:30 Urine Bilirubin 1+ (Negative) H 10/03/21 01:30 Urine Urobilinogen Norm mg/dL (Negative) 10/03/21 01:30 Ur Leukocyte Esterase Negative (Negative) 10/03/21 01:30 Urine RBC 0-4 /hpf (0-2) H 10/03/21 01:30 Urine WBC 0-4 /hpf (0-5) H 10/03/21 01:30 Ur Squamous Epith Cells 0-4 /hpf (0-5) H 10/03/21 01:30 Amorphous Sediment Not Reportable 10/03/21 01:30 Urine Bacteria Trace /hpf (NONE) 10/03/21 01:30 Urine Mucus 2+ /hpf 10/03/21 01:30 Ur Random Sodium 47 mmol/L 10/03/21 01:30 Coronavirus 229E (PCR) Not detected (NOT DETECT) 10/03/21 09:36 Hepatitis A IgM Ab Non-reactive (Nonreactive) 10/02/21 23:33 Hep Bs Antigen Non-reactive (Nonreactive) 10/02/21 23:33 Hep B Core IgM Ab Non-reactive (Nonreactive) 10/02/21 23:33 Hepatitis C Antibody Non-reactive (Nonreactive) 10/02/21 23:33 SARS-CoV-2 (PCR) Not detected (NOT DETECT) 10/03/21 09:36 SARS-CoV-2 Ag (Rapid) Negative (Negative) 10/03/21 00:15 Vitals Last Vital Signs Temp 99.0 F 10/03/21 08:46 Pulse 75 10/03/21 09:04 Resp 18 10/03/21 08:46 BP 120/56 10/03/21 09:04 Pulse Ox 93 10/03/21 08:46 Discharge Plan Discharge Patient Disposition: Home Condition: Stable Prescriptions: New doxazosin 4 mg tablet 4 mg PO BEDTIME Qty: 1 0RF Rx Instructions: patient already has med Continued levothyroxine 137 mcg Tablet 137 mcg PO DAILY 0RF atorvastatin 10 mg Tablet 10 mg PO DAILY 0RF glimepiride 2 mg Tablet 2 mg PO DAILY 0RF finasteride 5 mg Tablet 10 mg PO DAILY 0RF Discontinued doxazosin 8 mg Tablet 8 mg PO DAILY 0RF metformin 500 mg Tablet Extended Release 24 Hr 500 mg PO DAILY 0RF Discharge Orders: Discharge Order (Routine); Ordered 10/03/21 Ordered By: Srinivasa Solomon Referrals: Remington Kramer DO [Primary Care Provider] - 4-7 days (CMP, TSH on follow up) Discharge Diet: Diabetic Discharge Activity: Increase activity as tolerated Patient Instructions: Opioid Safety Activity Restrictions/Additional Instructions: Take all medicine as prescribed. Stop your metformin currently. Change her doxazosin dose to 4 mg at night Consult with your physician on follow-up regarding if metformin should be restarted, and possible follow-up imaging of right hilar lymph node enlargement On your follow-up with your primary care provider a CMP should be done. This is a check of electrolytes, kidney function, and liver tests. Your liver tests were slightly high at the emergency department. Consider referral for sleep study. Discharge Attestations Time Spent in Discharge Care*: greater than 30 min Quality Metrics Clinical Quality Measures [ No reported AMI, CVA or VTE this stay] Coding Level of Care Code Acute Chg FW DC note Diagnoses Weakness R53.1 Hyponatremia E87.1 Lactic acid acidosis E87.2
[2021-10-03 14:33] VITALS: BP 135/91; PULSE 88; RESP 18; TEMP 37.2; O2SAT 93
[2021-10-03 16:08] VITALS: BP 135/91; PULSE 88; RESP 18; TEMP 37.2; O2SAT 93
[2021-10-04 16:27] LABS: Osmolality Urine 852 mOsm/kg (50-1200)
[2021-10-04 16:27] LABS: Osmolality Serum 298 mOsm/kg (278-305)
== END 2021-10-03 14:34 | disposition home or self-care (01) ==
LOC: ER 10-03 03:59 → ER IP 10-03 04:43 → MEDSURG 10-03 13:14 → ER IP 10-03 13:58
PROVIDERS: Admitting Provider Internal Medicine; Emergency Provider Emergency Medicine; PCP Family Medicine; Visit Provider Internal Medicine
DX: R53.1 Weakness (principal); E87.1 Hypo-osmolality and hyponatremia; E87.2 Acidosis; E86.0 Dehydration; I51.7 Cardiomegaly
CPT/HCPCS: 36416; 70450; 71045; 71275; 72100; 80048; 80053; 80074; 81001; 82533; 82550; 82962; 83036; 83605; 83735; 83880; 83930; 83935; 84300; 84443; 85025; 85378; 85610; 87040; 87426; 87635; 93005; 96365; 96367; 96372; 97161; 99285; G0378; J0456; J0696; J1650; J1815; J3475; J7030; J7050; Q9967

== ENCOUNTER → 2021-11-22 09:36 | Outpatient (BNVA) | payer MEDICARE, SELFPAY | PROVIDERS: PCP Family Medicine; Visit Provider Nurse Practitioner Family | DX: N40.1 Benign prostatic hyperplasia with lower urinary tract symptoms (principal) | CPT/HCPCS: 51741; 51798; 81003; 99203 ==

== ENCOUNTER → 2021-12-15 10:01 | Outpatient (BNVA) | payer MEDICARE, SELFPAY | PROVIDERS: PCP Family Medicine; Visit Provider Emergency Medicine | DX: E11.9 Type 2 diabetes mellitus without complications (principal); E07.9 Disorder of thyroid, unspecified; I10 Essential (primary) hypertension; R59.0 Localized enlarged lymph nodes; N40.1 Benign prostatic hyperplasia with lower urinary tract symptoms; N40.0 Benign prostatic hyperplasia without lower urinary tract symptoms | CPT/HCPCS: 80053; 83036; 83880; 84443; 85025; G0103 ==

== ENCOUNTER → 2021-12-22 09:12 | Outpatient (BNVA) | payer MEDICARE, SELFPAY | PROVIDERS: PCP Family Medicine; Visit Provider Urology | DX: N40.1 Benign prostatic hyperplasia with lower urinary tract symptoms (principal) | CPT/HCPCS: 51798; 81003; 99213 ==

== ENCOUNTER 2021-12-26 12:55 | Outpatient (CLI) | payer MEDICARE, SELFPAY ==
--- NOTE | 2021-12-26 14:00 | CT_ITS ---
WS: [id number] CT CHEST WITH INTRAVENOUS CONTRAST HISTORY: R59.0 - Localized enlarged lymph nodes TECHNIQUE: Contiguous 5 mm axial imaging performed on the thorax. Coronal and sagittal reformats are submitted. All CT scans at [facility] use at least one of these dose optimization techniques: automated exposure control; mA and/or kV adjustment per patient size (includes targeted exams where dose is matched to clinical indication); or iterative reconstruction. CONTRAST: Omnipaque 350; 95 mL IV. DLP: 766.46 mGy.cm COMPARISON: 10/03/2021 Lungs and central airway: Mild dependent changes posteriorly. Increased pleural fat posteriorly. Ther e is very minimal peripheral reticulation, greatest in the lower lung aburto with areas of atelectasi s. No pulmonary mass or nodule. Small granuloma versus vessel on end at the RIGHT lung base. Pleura: Normal. No pleural effusion. Heart and pericardium: Mild LEFT heart enlargement. No pericardial effusion. Mediastinum and gwen: Small hilar mediastinal lymph nodes. Previously described RIGHT hilar lymph nod e measures 12 mm in short axis diameter. This lymph node is less conspicuous on prior studies and may be due to adjacent lymph nodes together. Slightly decreased in size as compared to the prior studies . May have been a reactive lymph node at that time. Also noted is pericardial fluid extending into th e inferior RIGHT pulmonary sleeve. Vessels: Atherosclerosis aorta with no aneurysm. Normal size pulmonary artery. Chest wall and lower neck: Well-circumscribed 17 mm nodule subcutaneous soft tissues along the corporate administrator ior mid thoracic region. Most likely sebaceous cyst. Upper abdomen: Small hiatal hernia. Hepatic steatosis. Cholelithiasis without acute cholecystitis. No adrenal mass. Partially calcified lymph node central upper abdomen. Osseous structures: Moderate thoracic spondylitic changes. Mild curvature of the lumbar spine. No aidan tructive bone process. CT/CT chest w con* [id number] IMPRESSION: 1. Slight decrease in size of RIGHT hilar lymph node. Lymph node now measures 12 mm in short axis diameter. May have been a reactive lymph node. No lymphaden opathy by criteria. 2. Mild chronic interstitial lung disease. 3. Mild LEFT heart enlargement. 4. Cholelithiasis. 5. Hepatic steatosis.
[2021-12-26] MEDS: iohexol 350 mg/mL 100 mL Btl IV (14:49)
== END 2021-12-26 12:56 | disposition home or self-care (01) ==
LOC: RAD 12:56
PROVIDERS: PCP Family Medicine; Visit Provider Emergency Medicine
DX: J84.9 Interstitial pulmonary disease, unspecified (principal); R59.0 Localized enlarged lymph nodes; I51.7 Cardiomegaly; K80.20 Calculus of gallbladder without cholecystitis without obstruction; K76.0 Fatty (change of) liver, not elsewhere classified
CPT/HCPCS: 71260

== ENCOUNTER 2022-03-22 18:25 | Emergency (ER) | payer MEDICARE, SELFPAY ==
[2022-03-22 18:35] VITALS: BP 176/109; PULSE 91; RESP 16; TEMP 37.4; O2SAT 94; BMI 34.9
[2022-03-22 21:03] LABS: Basophils % 0.2 %; Eosinophils # 0.1 10^3/uL (0.0-0.8); Eosinophils % 1.1 %; Hemoglobin 15.5 g/dL (11.7-16.6); Lymphocytes # 1.2 10^3/uL (0.8-4.8); Lymphocytes % 12.5 %; Mean Corpuscular HGB Conc 33.7 g/dL (30.0-36.0); Mean Corpuscular Hemoglobin 31.1 pg (28.0-34.0); Mean Corpuscular Volume 92.4 fl (80-94); Mean Platelet Volume 10.3 fL (7.4-10.4); Monocytes # 1.1 10^3/uL (0.2-0.9); Monocytes % 11.1 %; Neutrophils % 74.4 %; Nucleated Red Blood Cells % 0 %; Platelet Count 151 10^3/cmm (130-400); Red Blood Count 4.98 10^6/uL (4.1-5.3); Red Cell Distribution Width 12.8 % (12.1-15.1); White Blood Count 9.4 10^3/uL (4.0-10.0)
[2022-03-22 21:27] LABS: Alanine Aminotransferase 75 U/L (0-41); Albumin Level 3.9 g/dL (3.5-5.2); Alkaline Phosphatase 95 U/L (40-130); Anion Gap 12.9 (5-19); Aspartate Amino Transferase 72 U/L (0-40); Blood Urea Nitrogen 15 mg/dL (8-23); Calcium 9.2 mg/dL (8.5-10.5); Carbon Dioxide 27 mmol/L (22-29); Chloride 97 mmol/L (98-107); Globulin 3.9 g/dL (1.3-4.6); Glucose 135 mg/dL (65-115); Osmolality Calculated 279 mOsm/kg (285-295); Potassium 3.9 mmol/L (3.5-5.1); Sodium 133 mmol/L (136-145); Total Bilirubin 0.6 mg/dL (0.15-1.2); Total Protein 7.8 g/dL (6.6-8.7)
--- NOTE | 2022-03-22 21:58 | W.ED.FALL ---
HPI - Fall General: Chief Complaint: Fall Stated Complaint: fall, possible uti Time Seen by Provider: 03/22/22 21:24 History of Present Illness: Family brings this patient to the emergency department because they are concerned about his fall today. He apparently trying to urinate and felt like his legs were weak and, collapsed to the floor. He essentially slid down to the floor did not harm himself. He has family report that his gait sometimes is shuffling and unstable. He has a history of diabetes as well as a history of 2 lumbar back surgeries 1 for herniated disc and then 1 for degenerative changes and/or spinal stenosis. He denies any fevers or chills. He denies any headache, difficulty with movement of his upper extremities or lower extremities just at times he cannot tell where his feet are. He has no loss of bowel or bladder control but sometimes is difficult to initiate his urinary stream. He does have a history of BPH and does take tamsulosin on a regular basis. No history of cardiac disease pulmonary disease etc. And he denies any injury or pain as a result of his episode earlier today. Place fall occurred: home Loss of consciousness: None Associated symptoms-after fall: Reports difficulty walking; Denies abdominal pain, chest pain, headache(s) or neck pain Review of Systems Const: Denies: fever(s) or chills Eyes: Denies: change in vision ENMT: Denies: throat pain, odynophagia, nasal discharge or nasal congestion Card: Denies: chest pain, palpitations, irregular heart rhythm, syncope or pre-syncope Resp: Denies: dyspnea, productive cough or non-productive cough GI: Denies: abdominal pain, nausea, vomiting or diarrhea : Reports: urinary hesitancy, change in urine stream and oliguria Musc: Denies: neck pain, back pain, extremity pain or extremity swelling Skin/Breast: Denies: rash Neuro: Reports: numbness in extremities, weakness in extremities, sensory changes and difficulty walking; Denies: headache(s), involuntary movements or restless legs Psych: Denies: anxiety or depression Endo: Denies: polyuria or polydipsia [facility] PFSH: Medical History (Updated 03/22/22 @ 23:13 by Delfino Griggs DO) Enlarged prostate Hilar lymphadenopathy Hypertension Thyroid disorder Type 2 diabetes mellitus Surgical History (Updated 01/30/22 @ 16:01 by Sirena Wong MD) History of lumbar surgery Hx of cataract extraction Hx of surgical amputation of finger Family History (Updated 01/30/22 @ 14:23 by Norah Sanchez LPN) Mother , in 70s Cancer Blood Father , at age 51 Accident at workplace Sister Dementia Denies family history of Diabetes Hyperlipidemia Chronic kidney disease (CKD) Bleeding disorder Hypertension Thyroid disease Stroke Social History Smoking and tobacco status: never smoked Alcohol intake: never Lives independently: Yes Household members: spouse Marital status: Current occupational status: retired History of recent travel: No Course Reevaluation(s): Reevaluation #1: Stable without any new findings at this time. Time: 23:01 Vital Signs: Vital signs: Vital Signs Temperature 99.3 F 03/22/22 18:35 Pulse Rate 91 03/22/22 18:35 Respiratory Rate 16 03/22/22 18:35 Blood Pressure 176/109 03/22/22 18:35 Pulse Oximetry 94 03/22/22 18:35 Oxygen Delivery Me thod 03/22/22 18:35 MDM - Fall Medical Decision Making Patient with known history of diabetes as well as benign prostatic hypertrophy with urinary just consistent with that diagnosis was brought to the emergency department because of family concerned about his altered gait issues with lower extremity discoordination and loss of sensation. Symptoms have been intermittent in nature and resulted in him having weakness this this afternoon and inability to get back on his feet effectively. There was no history of focal weakness, fall injury etc. His clinical examination was unrevealing for any significant findings. His head CT was unremarkable, his ancillary studies were also unremarkable. His history suggest a possible combination of potential several several issues that may be contributing to his symptoms to include peripheral neuropathy from his diabetes, possible early or progressive Parkinson disease its been undiagnosed at this time as opposed to he apparently had some chronic nerve injury from his previous lumbar surgeries. No evidence at this time of any focal weakness or any other concerns that would prompt additional observation time and or admission to the hospital but he will need follow-up to include possible neurology evaluation for potential Parkinson's disease(his also reported that he occasionally has a resting tremor in one of his hands.). Medical Records I reviewed the patient's medical records. Lab Data I reviewed the patient's lab results. 03/22/22 20:43 03/22/22 20:[address] 03/22/22 22:14 IMPRESSION: 1. No acute intracranial abnormality. 2. Moderate age-related changes. Laboratory Results WBC 9.4 10^3/uL (4.0-10.0) 03/22/22 20:43 RBC 4.98 10^6/uL (4.1-5.3) 03/22/22 20:43 Hgb 15.5 g/dL (11.7-16.6) 03/22/22 20:43 Hct 46.0 % (42.0-52.0) 03/22/22 20:43 MCV 92.4 fl (80-94) 03/22/22 20:43 MCH 31.1 pg (28.0-34.0) 03/22/22 20:43 MCHC 33.7 g/dL (30.0-36.0) 03/22/22 20:43 RDW 12.8 % (12.1-15.1) 03/22/22 20:43 Plt Count 151 10^3/cmm (130-400) 03/22/22 20:43 MPV 10.3 fL (7.4-10.4) 03/22/22 20:43 Neut % (Auto) 74.4 % 03/22/22 20:43 Lymph % (Auto) 12.5 % 03/22/22 20:43 [place] % (Auto) 11.1 % 03/22/22 20:43 Eos % (Auto) 1.1 % 03/22/22:43 Baso % (Auto) 0.2 % 03/22/22 20:43 Neut # (Auto) 7.00 10^3/uL (1.8-7.7) 03/22/22 20:43 Lymph # (Auto) 1.2 10^3/uL (0.8-4.8) 03/22/22 20:43 [place] # (Auto) 1.1 10^3/uL (0.2-0.9) H 03/22/22 20:43 Eos # (Auto) 0.1 10^3/uL (0.0-0.8) 03/22/22 20:43 Baso # (Auto) 0.0 10^3/uL (0.0-0.1) 03/22/22 20:43 Nucleated RBC % (auto) 0 % 03/22/22 20:43 Nucleated RBCs # 0.0 /100WBC 03/22/22 20:43 Sodium 133 mmol/L (136-145) L 03/22/22 20:43 Potassium 3.9 mmol/L (3.5-5.1) 03/22/22 20:43 Chloride 97 mmol/L (98-107) L 03/22/22 20:43 Carbon Dioxide 27 mmol/L (22-29) 03/22/22 20:43 Anion Gap 12.9 (5-19) 03/22/22 20:43 BUN 15 mg/dL (8-23) 03/22/22 20:43 Creatinine 1.0 mg/dL (0.7-1.2) 03/22/22 20:43 GFR Calculation Not Reportable 03/22/22 20:43 Glucose 135 mg/dL (65-115) H 03/22/22 20:43 Calculated Osmolality 279 mOsm/kg (285-295) L 03/22/22 20:43 Calcium 9.2 mg/dL (8.5-10.5) 03/22/22 20:43 Total Bilirubin 0.6 mg/dL (0.15-1.2) 03/22/22 20:43 AST 72 U/L (0-40) H 03/22/22 20:43 ALT 75 U/L (0-41) H 03/22/22 20:43 Alkaline Phosphatase 95 U/L (40-130) 03/22/22 20:43 Total Protein 7.8 g/dL (6.6-8.7) 03/22/22 20:43 Albumin 3.9 g/dL (3.5-5.2) 03/22/22 20:43 Globulin 3.9 g/dL (1.3-4.6) 03/22/22 20:43 Urine Color Dark yellow (Yellow) 03/22/22 22:28 Urine Appearance Sl hazy (CLEAR) A 03/22/22 22:28 Urine pH 5 (5-7) 03/22/22 22:28 Ur Specific [place] 1.020 (1.005-1.030) 03/22/22 22:28 Urine Protein 2+ (Negative) H 03/22/22 22:28 Urine Glucose (UA) Norm (Normal) 03/22/22 22:28 Urine Ketones 1+ (Negative) H 03/22/22 22:28 Urine Blood 3+ (Negative) H 03/22/22 22:28 Urine Nitrate Negative (Negative) 03/22/22 22:28 Urine Bilirubin Neg (Negative) 03/22/22 22:28 Urine Urobilinogen Norm mg/dL (Negative) 03/22/22 22:28 Ur Leukocyte Esterase Negative (Negative) 03/22/22 22:28 Urine RBC 80-100 /hpf (0-2) H 03/22/22 22:28 Urine WBC None /hpf (0-5) 03/22/22 22:28 Ur Squamous Epith Cells None /hpf (0-5) 03/22/22 22:28 Ur Renal Epithelial Cell 0-2 /hpf 03/22/22 22:28 Amorphous Sediment 2+ /hpf 03/22/22 22:28 Urine Bacteria None /hpf (NONE) 03/22/22 22:28 Discharge Plan Discharge Patient Disposition: Home Clinical Impression: Unstable gait, Peripheral neuropathy Condition: Stable Prescriptions: No Action (DME) blood-glucose meter Kit See Rx Instructions .Route Rx Instructions: use to test blood sugar once daily (DME) lancets [Comfort Lancets] [facility] See Rx Instructions .Route Rx Instructions: use to check blood sugar once daily finasteride 5 mg tablet 5 mg PO DAILY 90 Days Qty: 90 1RF glimepiride 2 mg tablet 4 mg PO DAILY 90 Days Qty: 180 1RF levothyroxine 137 mcg tablet 137 mcg PO DAILY 90 Days Qty: 90 1RF tamsulosin 0.4 mg capsule 0.4 mg PO .at bedtime 90 Days Qty: 90 3RF (DME) Accu-Chek Angely Plus test strp Strip See Rx Instructions .ROUTE .COMPLEX Qty: 100 4RF Dose Instruction: Check blood sugar 1-2 x daily Rx Instructions: Check blood sugar 1-2 x daily Discharge Orders: Discharge ED (Routine); Ordered 03/22/22 Ordered By: Delfino Griggs Other Ambulatory Orders: DME: Wheelchair (Order) Timeframe: 3 Months Location: Determined by Patient Ordered By: Delfino Griggs Referrals: Sirena Wong MD [Primary Care Provider] - 7-10 days (Follow-up for gait instability) Discharge Diet: Usual diet Discharge Activity: Increase activity as tolerated, Use walker/crutches as instructed and Wheelchair as instructed Patient Instructions: Opioid Safety, Pain Management Activity Restrictions/Additional Instructions: Continue usual prescribed medications. Ensure that you use your walker frequently to help prevent falls and injury. We have also provided a prescription for a wheelchair to aid in your mobility. We have also put a consultation in for a follow-up appointment neurology they will contact you with that appointment time. Should you have any new or worsening symptoms return to this or the nearest emergency department immediately. Call your family doctor for a follow-up appointment in 1 week. Coding Level of Care Code ED Export Freight Clerk for Wade Ruby
--- NOTE | 2022-03-22 22:14 | CTR_ITS ---
PROCEDURE INFORMATION: Exam: CT Head Without Contrast Exam date and time: 03/22/2022 10:32 PM Age: 81 years old Clinical indication: Injury or trauma; Blunt trauma (contusions or hematomas); Patient HX: Fall today. Altered gait. Per family patient has been having frequent falls. TECHNIQUE: Imaging protocol: Computed tomography of the head without contrast. Radiation optimization: All CT scans at this facility use at least one of these dose optimization techniques: automated exposure control; mA and/or kV adjustment per patient size (includes targeted exams where dose is matched to clinical indication); or iterative reconstruction. COMPARISON: CT head wo con* [id number] 10/02/2021 11:15 PM RADIATION DOSE METRICS: Total DLP (mGy-cm): 1101.48 FINDINGS: Brain: No focal hemorrhage or midline shift is identified. The ventricles and parenchyma show moderate atrophy and chronic cerebral white matter ischemic change. Cerebral ventricles: No ventriculomegaly or evidence of acute hydrocephalus. Paranasal sinuses: The partially assessed sinuses are grossly clear. Only trace left sphenoid sinus mucosal thickening. Mastoid air cells: Visualized mastoid air cells are well aerated. Bones/joints: No displaced skull fracture is noted. Soft tissues: Unremarkable. CT/CT head wo con* [id number] IMPRESSION: 1. No acute intracranial abnormality. 2. Moderate age-related changes.
[2022-03-22 22:38] LABS: Glucose Urine UA Norm (Normal); Ketones Urine 1+ (Negative); Protein Urine 2+ (Negative); Urine Appearance SL Hazy (CLEAR); Urine Color Dark Yellow (Yellow); pH Urine 5 (5-7)
[2022-03-22 22:39] LABS: Add Urine Microscopic? YES; Bilirubin Urine Neg (Negative); Blood Urine 3+ (Negative); Leukocyte Esterase Urine Negative (Negative); Nitrate Urine Negative (Negative); Urobilinogen Urine Norm (Negative)
[2022-03-22 23:06] LABS: Add Urine Culture? No; Amorphous Sediment Urine 2+ /hpf; RBC Urine 80-100 /hpf (0-2); Renal Epithelial Cells Urine 0-2 /hpf
[2022-03-22 23:44] VITALS: BP 175/98; PULSE 76; TEMP 36.8; O2SAT 93
--- NOTE | 2022-03-23 12:51 | DCPLANNER ---
Addendum entered by Holley Gonzalez 06/26/22 17:59: Patient had follow up appointment with neurology - patient did attend appointment. Addendum entered by Holley Gonzalez 03/27/22 15:22: Patient has a follow up appointment scheduled for May at 10:00 with at neurology. Clinic will call patient with appointment information. Original Note: global upstream marketing manager had message to schedule a follow up appointment for patient with neurology. global upstream marketing manager sent patients information to the front office staff at neurology. Patients information will be printed and reviewed. Clinic will call patient with appointment information.
--- NOTE | 2022-03-27 23:28 | W.ED.FALL ---
HPI - Fall General: Chief Complaint: Fall Stated Complaint: fall, possible uti Time Seen by Provider: 03/22/22 21:24 Source: patient and family History of Present Illness: Continuation of prior MR [id number] Place fall occurred: home [facility] ED PFSH: Medical History (Updated 03/22/22 @ 23:13 by Delfino Griggs DO) Enlarged prostate Hilar lymphadenopathy Hypertension Thyroid disorder Type 2 diabetes mellitus Surgical History (Updated 01/30/22 @ 16:01 by Sirena Wong MD) History of lumbar surgery Hx of cataract extraction Hx of surgical amputation of finger Family History (Updated 01/30/22 @ 14:23 by Norah Sanchez LPN) Mother , in 70s Cancer Blood Father , at age 51 Accident at workplace Sister Dementia Denies family history of Diabetes Hyperlipidemia Chronic kidney disease (CKD) Bleeding disorder Hypertension Thyroid disease Stroke Social History Smoking and tobacco status: never smoked Alcohol intake: never Lives independently: Yes Household members: spouse Marital status: Current occupational status: retired History of recent travel: No Physical Exam Narrative: EXAM NARRATIVE: The patient was alert and cooperative and in no acute distress. Speech goal directed and fluent. Const: COMMON NORMALS: no acute distress, alert and well nourished GENERAL APPEARANCE: cooperative and comfortable ORIENTATION/CONSCIOUSNESS: Yes oriented to person, Yes oriented to place and Yes oriented to time HENMT: COMMON NORMALS: normocephalic, atraumatic, Normal nasal mucous membranes and turbinates present, moist oral mucous membranes and oropharynx normal HEAD & SCALP: normocephalic and atraumatic FACE & SINUS: normal facial exam NOSE: Normal nasal mucous membranes and turbinates present Eye: COMMON NORMALS: Equal, round and reactive pupils present, EOMs intact bilaterally and conjunctivae normal CONJUNCTIVA: Yes conjunctivae normal PUPIL: Yes Equal, round and reactive pupils present Neck/C-Spine: COMMON NORMALS: full ROM, supple, no JVD and No carotid bruits Chest: COMMONS NORMALS: normal inspection of the chest Resp: COMMON NORMALS: normal respiratory effort, No retractions and No use of accessory muscles EFFORT & INSPECTION: Yes able to speak in complete sentences Cardio: COMMON NORMALS: no JVD, regular rate, regular rhythm, No murmurs present (Cardio) and Peripheral pulses 2+ throughout RATE: regular rate RHYTHM: regular rhythm PERIPHERAL PULSES: Peripheral pulses 2+ throughout GI: COMMON NORMALS: Normal to inspection, nondistended, normoactive bowel sounds present, Soft to palpation and non-tender PALPATION: Yes Soft to palpation : COMMON NORMALS: Yes no CVA tenderness BLADDER/KIDNEY EXAM: Yes no CVA tenderness Back/Pelvis: COMMON NORMALS: no CVA tenderness, thoracic and lumbar spine normal to inspection, no thoracic nor lumbar tenderness, thoraco-lumbar ROM normal and straight leg raise negative bilaterally Extremity: COMMON NORMALS: normal to inspection, capillary refill normal, no calf tenderness and no pedal edema Neuro: COMMON NORMALS: moves all extremities, no focal motor deficits and deep tendon reflexes 2+ bilaterally SENSORIUM/ORIENTATION: Yes alert, Yes oriented to person, Yes oriented to place and Yes oriented to time CRANIAL NERVES: Yes CN normal except as noted SPEECH: speech normal OTHER: The patient did not display any focal weakness. He was able to hold both lower extremities against gravity without drift. Psych: COMMON NORMALS: speech normal SPEECH: Yes normal speech Skin: COMMON NORMALS: no rashes or lesions noted, turgor normal and no jaundice GENERAL SKIN EXAM: no rashes or lesions noted and turgor normal Course Vital Signs: Vital signs: Vital Signs Temperature 98.2 F 03/22/22 23:44 Pulse Rate 76 03/22/22 23:44 Respiratory Rate 16 03/22/22 18:35 Blood Pressure 175/98 03/22/22 23:44 Pulse Oximetry 93 03/22/22 23:44 Oxygen Delivery Me thod 03/22/22 23:44 MDM - Fall Medical Decision Making See additonal MR [id number] Lab Data 03/22/22 20:43 03/22/22 20:[address] 03/22/22 22:14 IMPRESSION: 1. No acute intracranial abnormality. 2. Moderate age-related changes. Laboratory Results WBC 9.4 10^3/uL (4.0-10.0) 03/22/22 20:43 RBC 4.98 10^6/uL (4.1-5.3) 03/22/22 20:43 Hgb 15.5 g/dL (11.7-16.6) 03/22/22 20:43 Hct 46.0 % (42.0-52.0) 03/22/22 20:43 MCV 92.4 fl (80-94) 03/22/22 20:43 MCH 31.1 pg (28.0-34.0) 03/22/22 20:43 MCHC 33.7 g/dL (30.0-36.0) 03/22/22 20:43 RDW 12.8 % (12.1-15.1) 03/22/22 20:43 Plt Count 151 10^3/cmm (130-400) 03/22/22 20:43 MPV 10.3 fL (7.4-10.4) 03/22/22 20:43 Neut % (Auto) 74.4 % 03/22/22 20:43 Lymph % (Auto) 12.5 % 03/22/22 20:43 [facility] % (Auto) 11.1 % 03/22/22 20:43 Eos % (Auto) 1.1 % 03/22/22 20:43 Baso % (Auto) 0.2 % 03/22/22 20:43 Neut # (Auto) 7.00 10^3/uL (1.8-7.7) 03/22/22 20:43 Lymph # (Auto) 1.2 10^3/uL (0.8-4.8) 03/22/22 20:43 [facility] # (Auto) 1.1 10^3/uL (0.2-0.9) H 03/22/22 20:43 Eos # (Auto) 0.1 10^3/uL (0.0-0.8) 03/22/22 20:43 Baso # (Auto) 0.0 10^3/uL (0.0-0.1) 03/22/22 20:43 Nucleated RBC % (auto) 0 % 03/22/22 20:43 Nucleated RBCs # 0.0 /100WBC 03/22/22 20:43 Sodium 133 mmol/L (136-145) L 03/22/22 20:43 Potassium 3.9 mmol/L (3.5-5.1) 03/22/22 20:43 Chloride 97 mmol/L (98-107) L 03/22/22 20:43 Carbon Dioxide 27 mmol/L (22-29) 03/22/22 20:43 Anion Gap 12.9 (5-19) 03/22/22 20:43 BUN 15 mg/dL (8-23) 03/22/22 20:43 Creatinine 1.0 mg/dL (0.7-1.2) 03/22/22 20:43 GFR Calculation Not Reportable 03/22/22 20:43 Glucose 135 mg/dL (65-115) H 03/22/22 20:43 Calculated Osmolality 279 mOsm/kg (285-295) L 03/22/22 20:43 Calcium 9.2 mg/dL (8.5-10.5) 03/22/22 20:43 Total Bilirubin 0.6 mg/dL (0.15-1.2) 03/22/22 20:43 AST 72 U/L (0-40) H 03/22/22 20:43 ALT 75 U/L (0-41) H 03/22/22 20:43 Alkaline Phosphatase 95 U/L (40-130) 03/22/22 20:43 Total Protein 7.8 g/dL (6.6-8.7) 03/22/22 20:43 Albumin 3.9 g/dL (3.5-5.2) 03/22/22 20:43 Globulin 3.9 g/dL (1.3-4.6) 03/22/22 20:43 Urine Color Dark yellow (Yellow) 03/22/22 22:28 Urine Appearance Sl hazy (CLEAR) A 03/22/22 22:28 Urine pH 5 (5-7) 03/22/22 22:28 Ur Specific [place] 1.020 (1.005-1.030) 03/22/22 22:28 Urine Protein 2+ (Negative) H 03/22/22 22:28 Urine Glucose (UA) Norm (Normal) 03/22/22 22:28 Urine Ketones 1+ (Negative) H 03/22/22 22:28 Urine Blood 3+ (Negative) H 03/22/22 22:28 Urine Nitrate Negative (Negative) 03/22/22 22:28 Urine Bilirubin Neg (Negative) 03/22/22 22:28 Urine Urobilinogen Norm mg/dL (Negative) 03/22/22 22:28 Ur Leukocyte Esterase Negative (Negative) 03/22/22 22:28 Urine RBC 80-100 /hpf (0-2) H 03/22/22 22:28 Urine WBC None /hpf (0-5) 03/22/22 22:28 Ur Squamous Epith Cells None /hpf (0-5) 03/22/22 22:28 Ur Renal Epithelial Cell 0-2 /hpf 03/22/22 22:28 Amorphous Sediment 2+ /hpf 03/22/22 22:28 Urine Bacteria None /hpf (NONE) 03/22/22 22:28 Discharge Plan Discharge Patient Disposition: Home Clinical Impression: Unstable gait, Peripheral neuropathy Condition: Stable Prescriptions: No Action (DME) blood-glucose meter Kit See Rx Instructions .Route Rx Instructions: use to test blood sugar once daily (DME) lancets [Comfort Lancets] Misc See Rx Instructions .Route Rx Instructions: use to check blood sugar once daily finasteride 5 mg tablet 5 mg PO DAILY 90 Days Qty: 90 1RF glimepiride 2 mg tablet 4 mg PO DAILY 90 Days Qty: 180 1RF levothyroxine 137 mcg tablet 137 mcg PO DAILY 90 Days Qty: 90 1RF tamsulosin 0.4 mg capsule 0.4 mg PO .at bedtime 90 Days Qty: 90 3RF (DME) Accu-Chek Angely Plus test strp Strip See Rx Instructions .ROUTE .COMPLEX Qty: 100 4RF Dose Instruction: Check blood sugar 1-2 x daily Rx Instructions: Check blood sugar 1-2 x daily Discharge Orders: Discharge ED (Routine); Ordered 03/22/22 Ordered By: Delfino Griggs Other Ambulatory Orders: DME: Wheelchair (Order) Timeframe: 3 Months Location: Determined by Patient Ordered By: Delfino Griggs Referrals: Sirena Wong MD [Primary Care Provider] - 7-10 days (Follow-up for gait instability) Discharge Diet: Usual diet Discharge Activity: Increase activity as tolerated, Use walker/crutches as instructed and Wheelchair as instructed Patient Instructions: Opioid Safety, Pain Management Activity Restrictions/Additional Instructions: Continue usual prescribed medications. Ensure that you use your walker frequently to help prevent falls and injury. We have also provided a prescription for a wheelchair to aid in your mobility. We have also put a consultation in for a follow-up appointment neurology they will contact you with that appointment time. Should you have any new or worsening symptoms return to this or the nearest emergency department immediately. Call your family doctor for a follow-up appointment in 1 week. Coding Level of Care Code ED Managed Care Specialist for Chg Fwd Exam Comprehensive Comment This chart is a continuation of MR [id number]. The PE had not been documented.
== END 2022-03-22 23:45 | disposition home or self-care (01) ==
PROVIDERS: Emergency Medicine; Emergency Provider Emergency Medicine; PCP Family Medicine
DX: R26.81 Unsteadiness on feet (principal); E11.42 Type 2 diabetes mellitus with diabetic polyneuropathy; Z79.84 Long term (current) use of oral hypoglycemic drugs; I10 Essential (primary) hypertension
CPT/HCPCS: 51701; 70450; 80053; 81001; 85025; 99284

== ENCOUNTER → 2022-04-20 15:01 | Outpatient (BNVA) | payer MEDICARE, SELFPAY | PROVIDERS: PCP Family Medicine; Visit Provider Emergency Medicine | DX: R06.2 Wheezing (principal); I70.0 Atherosclerosis of aorta | CPT/HCPCS: 71046 ==

== ENCOUNTER → 2022-05-01 14:21 | Outpatient (BNVA) | payer MEDICARE, SELFPAY | PROVIDERS: PCP Family Medicine; Visit Provider Urology | DX: N40.1 Benign prostatic hyperplasia with lower urinary tract symptoms (principal); N13.8 Other obstructive and reflux uropathy; R35.89 Other polyuria; N39.41 Urge incontinence | CPT/HCPCS: 51798; 81003; 99214 ==

== ENCOUNTER → 2022-05-17 09:39 | Outpatient (BNVA) | payer MEDICARE, SELFPAY | PROVIDERS: PCP Family Medicine; Referring Provider Emergency Medicine; Visit Provider Specialist | DX: G31.83 Neurocognitive disorder with Lewy bodies (principal); F02.80 Dementia in other diseases classified elsewhere, unspecified severity, without behavioral disturbance, psychotic disturbance, mood disturbance, and anxiety | CPT/HCPCS: 99205 ==

== ENCOUNTER → 2022-07-24 13:38 | Outpatient (BNVA) | payer MEDICARE, SELFPAY | PROVIDERS: PCP Family Medicine; Visit Provider Family Medicine | DX: I10 Essential (primary) hypertension (principal); E11.9 Type 2 diabetes mellitus without complications; E78.2 Mixed hyperlipidemia | CPT/HCPCS: 80053; 80061; 83036 ==

== ENCOUNTER → 2022-08-08 10:04 | Outpatient (BNVA) | payer MEDICARE, SELFPAY | PROVIDERS: PCP Family Medicine; Visit Provider Specialist | DX: G31.83 Neurocognitive disorder with Lewy bodies (principal); F02.80 Dementia in other diseases classified elsewhere, unspecified severity, without behavioral disturbance, psychotic disturbance, mood disturbance, and anxiety | CPT/HCPCS: 99214 ==

== ENCOUNTER → 2022-08-23 14:43 | Outpatient (BNVA) | payer MEDICARE, SELFPAY | PROVIDERS: PCP Family Medicine; Visit Provider Urology | DX: N40.1 Benign prostatic hyperplasia with lower urinary tract symptoms (principal); N13.8 Other obstructive and reflux uropathy | CPT/HCPCS: 51798; 99213 ==

== ENCOUNTER → 2022-12-11 10:24 | Outpatient (BNVA) | payer MEDICARE, SELFPAY | PROVIDERS: PCP Family Medicine; Visit Provider Specialist | DX: G31.83 Neurocognitive disorder with Lewy bodies (principal); F02.80 Dementia in other diseases classified elsewhere, unspecified severity, without behavioral disturbance, psychotic disturbance, mood disturbance, and anxiety; G30.9 Alzheimer's disease, unspecified | CPT/HCPCS: 99214 ==

== ENCOUNTER → 2023-01-22 10:17 | Outpatient (BNVA) | payer MEDICARE, SELFPAY | PROVIDERS: PCP Family Medicine; Visit Provider Family Medicine | DX: E11.9 Type 2 diabetes mellitus without complications; I10 Essential (primary) hypertension; E03.9 Hypothyroidism, unspecified | CPT/HCPCS: 80053; 83036; 84439; 84443; 84481 ==

== ENCOUNTER → 2023-03-08 10:51 | Outpatient (BNVA) | payer MEDICARE, SELFPAY | PROVIDERS: PCP Family Medicine; Visit Provider Emergency Medicine | DX: R06.2 Wheezing (principal); R09.89 Other specified symptoms and signs involving the circulatory and respiratory systems; N40.1 Benign prostatic hyperplasia with lower urinary tract symptoms | CPT/HCPCS: 71046; 80048; 83880 ==

== ENCOUNTER 2023-03-09 20:23 | Inpatient (IN) | payer MEDICARE, SELFPAY ==
--- NOTE | 2023-03-09 20:27 | XRR_ITS ---
PROCEDURE INFORMATION: Exam: XR Chest Exam date and time: 03/09/2023 8:42 PM Age: 82 years old Clinical indication: Patient HX: Tachycardia; Wheezing; Chest congestion; No cardiac HX; Additional info: Dyspnea TECHNIQUE: Imaging protocol: Radiologic exam of the chest. Views: 1 view. COMPARISON: CR XR chest 2V* [id number] 03/08/2023 11:04 AM FINDINGS: Lungs: Stable linear scarring in both lungs. Stable atelectasis versus pneumonia stable bilateral lower lobe atelectasis versus pneumonia. Pleural spaces: Stable small bilateral pleural effusions. No pneumothorax. Heart/Mediastinum: Stable moderate enlargement of the cardiac silhouette. Mediastinal contours are unremarkable. Vasculature: Stable vascular calcifications in the aorta. Bones/joints: Unremarkable for age. XR/XR chest 1V portable [id number] IMPRESSION: 1. Stable atelectasis versus pneumonia stable bilateral lower lobe atelectasis versus pneumonia. Recommend followup chest imaging to insure resolution of these findings. 2. Stable small bilateral pleural effusions. 3. Incidental/nonacute findings are listed in the report.
--- NOTE | 2023-03-09 20:28 | ED_ITS ---
HPI - SOB/Dyspnea General: Chief Complaint: Shortness of Breath/Dyspnea Stated Complaint: SOB Time Seen by Provider: 03/09/23 20:25 History of Present Illness: HPI Narrative: 82-year-old male presents to the emergency department with complaints of shortness of breath. He states that he is seen by his primary care provider on 03/04/2023 and provided antibiotics for concerns of bacterial bronchitis, he states that he returned and was seen in the clinic yesterday and told that he had fluid on his lungs and was provided Lasix diuretic and discharged home. He states he called EMS personnel today because he had continued to have worsening shortness of breath on exertion. He states he did take 3 albuterol treatments today with no relief. He states he does not have a history of atrial fibrillation or cardiac abnormalities. He denies chest pain at present. Associated symptoms: Reports palpitations Review of Systems General: Reports: 10 or more systems reviewed and unremarkable except in HPI and below Card: Reports: palpitations Resp: Reports: dyspnea and wheezing PFS ED PFSH: Medical History CHF (congestive heart failure) Enlarged prostate Hilar lymphadenopathy Hypertension Peripheral edema Pulmonary hyperinflation Thyroid disorder Type 2 diabetes mellitus Surgical History History of lumbar surgery Hx of cataract extraction Hx of surgical amputation of finger Family History Mother , in 70s Cancer Blood Father , at age 51 Accident at workplace Sister Dementia Denies family history of Diabetes Hyperlipidemia Chronic kidney disease (CKD) Bleeding disorder Hypertension Thyroid disease Stroke Social History Smoking and tobacco/nicotine status: never used tobacco/nicotine Alcohol intake: never Substance/Drug Use: never Lives independently: Yes Household members: spouse Marital status: Current occupational status: retired Physical Exam Narrative: EXAM NARRATIVE: Constitutional: the patient appears well nourished and with normal development. Vital signs reviewed as documented. Mild respiratory distress noted HENMT: Normocephalic, atraumatic. Extermal ears with normal appearance without drainage. Nose without drainage, normal appearance. Mucus membranes moist. Neck is supple, No jugular venous distension, trachea is midline, no appreciable carotid bruits. No lymphadenopathy. No meningeal signs. Flexion, extension and lateral rotation is without pain. Eyes: Pupils are equal, round, reactive to light and accommodation. No scleral icterus. Extra-ocular movement are intact. Thorax is symmetrical and with equal rise and fall with respirations. Resp: Bilateral expiratory wheezes and faint crackles throughout on auscultation. Cardio: Irregularly irregular rhythm consistent with atrial fibrillation with rapid ventricular response at a rate of 135. Positive S1, S2. No appreciable murmurs, rubs or gallops. GI: Abdominal exam reveals normal bowel sounds to all quadrants. No organomegaly. No obvious palpable masses noted. No hepatomegally appreciated. Soft, nontender to palpation. Extremity: Extremities are With trace edema to the bilateral lower extremities and both femoral and pedal pulses are 2+ and equal bilaterally. Moves all extremities well, sensation in all extremities. Neuro: Alert and oriented x4, person, place, time and situation. Cranial nerves II through XII are grossly intact, there is no focal neurological deficits that I can appreciate at present. Motor strength in the upper and lower extremities are equal and bilateral 5/5. Psych: Cooperative, calm, normal thought process, appropriate judgment. Skin: No lesions, rashes. No gross abnormalities noted. Back: Symmetrical, no obvious deformity, No CVA tenderness Course Vital Signs: Vital signs: Vital Signs Temperature 97.8 F 03/10/23 12:24 Pulse Rate 95 03/10/23 12:34 Respiratory Rate 20 H 03/10/23 12:34 Blood Pressure 128/81 03/10/23 12:24 Pulse Oximetry 95 03/10/23 12:34 Oxygen Delivery Me thod Room Air 03/10/23 12:34 Oxygen Flow Rate 1.5 03/09/23 21:46 MDM - SOB/Dyspnea Medical Decision Making Physical exam completed and documented, I will obtain a CBC, CMP cardiac enzymes as well as obtain a twelve-lead EKG provide him a DuoNeb breathing treatment and also evaluate him for congestive heart failure and atrial fibrillation. We will provide him Cardizem drip and a loading dose of Cardizem Medical Records I reviewed the patient's medical records. Lab Data I reviewed the patient's lab results. 03/10/23 02:12 03/10/23 02:12 Labs/Radiology: Radiology Impressions Chest X-Ray 03/09/23 20:27 IMPRESSION: 1. Stable atelectasis versus pneumonia stable bilateral lower lobe atelectasis versus pneumonia. Recommend followup chest imaging to insure resolution of these findings. 2. Stable small bilateral pleural effusions. 3. Incidental/nonacute findings are listed in the report. Chest CT 03/10/23 08:54 IMPRESSION: 1. [id number] freely layering bilateral pleural effusions. 2. Bilateral atelectasis with some areas of probable superimposed pneumonitis. 3. Additional details as above. Head CT 03/10/23 12:32 IMPRESSION: There are senescent changes of the brain as described above. No evidence for large acute ischemic infarction or acute intracranial injury. Laboratory Results WBC 10.06 10^3/uL (3.29-11.43) 03/09/23 20:42 RBC 4.10 10^6/uL (3.85-5.65) 03/09/23 20:42 Hgb 13.10 g/dL (11.27-16.99) 03/09/23 20:42 Hct 40.1 % (37-53) 03/09/23 20:42 MCV 97.8 fl (82-101) 03/09/23 20:42 MCH 32.0 pg (27-33) 03/09/23 20:42 MCHC 32.7 g/dL (30-55) 03/09/23 20:42 RDW 13.6 % (12.1-15.1) 03/09/23 20:42 Plt Count 156 10^3/cmm (157-399) L 03/09/23 20:42 MPV 11.4 fL (7.4-10.4) H 03/09/23 20:42 Neut % (Auto) 68.8 % 03/09/23 20:42 Lymph % (Auto) 19.5 % 03/09/23 20:42 [place] % (Auto) 7.7 % 03/09/23 20:42 Eos % (Auto) 1.4 % 03/09/23 20:42 Baso % (Auto) 0.5 % 03/09/23 20:42 Neut # (Auto) 6.93 10^3/uL (1.8-7.7) 03/09/23 20:42 Lymph # (Auto) 2.0 10^3/uL (0.8-4.8) 03/09/23 20:42 [place] # (Auto) 0.8 10^3/uL (0.2-0.9) 03/09/23 20:42 Eos # (Auto) 0.1 10^3/uL (0.0-0.8) 03/09/23 20:42 Baso # (Auto) 0.1 10^3/uL (0.0-0.1) 03/09/23 20:42 Nucleated RBC % (auto) 0 % 03/09/23 20:42 Nucleated RBCs # 0.0 /100WBC 03/09/23 20:42 PT 15.30 SECONDS (12.1-14.9) H 03/09/23 21: INR 1.17 (0.8-1.2) 03/09/23 21:25 Specimen Type Arterial 03/09/23 20:45 Sample Site Radial, left 03/09/23 20:45 ABG pH 7.40 (7.35-7.45) 03/09/23 20:45 ABG pCO2 33.3 mmHg (35-45) L 03/09/23 20:45 ABG pO2 78.1 mmHg (80.0-100.0) L 03/09/23 20:45 ABG HCO3 20.5 mmol/L (22-26) L 03/09/23 20:45 ABG Base Excess -3.5 mmol/L (-2.0-2.0) L 03/09/23 20:45 Dany Test Pos 03/09/23 20:45 Hematocrit 42.7 % (42-52) 03/09/23 20:45 Hgb O2 Saturation 94.9 % (95-100) L 03/09/23 20:45 Carboxyhemoglobin 1.0 %THgb (0.4-20.1) 03/09/23 20:45 Methemoglobin 0.3 % (0.4-1.5) L 03/09/23 20:45 Total Hemoglobin 13.9 g/dL (14-18) L 03/09/23 20:45 O2 Delivery Device Nc 03/09/23 20:45 O2 Liters/Min 2.0 % 03/09/23 20:45 Foundation Relations Manager ID [email or web address] 03/09/23 20:45 Sodium 134 mmol/L (136-145) L 03/09/23 21:25 Potassium 4.0 mmol/L (3.5-5.1) 03/09/23 21: Chloride 100 mmol/L (98-107) 03/09/23 21:25 Carbon Dioxide 22 mmol/L (22-29) 03/09/23 21:25 Anion Gap 16.0 (5-19) 03/09/23 21: BUN 19 mg/dL (8-23) 03/09/23 21:25 Creatinine 1.0 mg/dL (0.7-1.2) 03/09/23 21:25 GFR Calculation Not Reportable 03/09/23 21: Glucose 249 mg/dL (65-115) H 03/09/23 21:25 Estimat Average Glucose 186 03/09/23 20:42 Hemoglobin A1c 8.1 % (4.0-6.0) H 03/09/23 20:42 Calculated Osmolality 289 mOsm/kg (285-295) 03/09/23 21:25 Calcium 9.2 mg/dL (8.5-10.5) 03/09/23 21:25 Total Bilirubin 0.5 mg/dL (0.15-1.2) 03/09/23 21:25 AST 158 U/L (0-40) H 03/09/23 21:25 ALT 166 U/L (0-41) H 03/09/23 21:25 Alkaline Phosphatase 109 U/L (40-130) 03/09/23 21:25 Troponin T Baseline 147 ng/L (0-15) H* 03/09/23 21:25 NT-Pro-B Natriuret Pep 2201 pg/mL (0-450) H 03/09/23 21:25 Total Protein 7.7 g/dL (6.6-8.7) 03/09/23 21:25 Albumin 3.9 g/dL (3.5-5.2) 03/09/23 21: Globulin 3.8 g/dL (1.3-4.6) 03/09/23 21: TSH 5.55 uIU/mL (0.27-4.20) H 03/09/23 21:25 Influenza Type A Ag negative (Negative) 03/09/23 20:59 Influenza Type B Ag negative (Negative) 03/09/23 20:59 All radiology interpretation(s) finalized by discharge Critical Care Time Critical Care Time: Critical Care Time: Yes Total Critical Care Time: 55 Attestation: This case had a high probability of a clinically significant, sudden, or life threatening deterioration of this patient's condition which required my full and direct attention, intervention and personal management. Discharge Plan Discharge Patient Disposition: Admitted As Inpatient Admit Provider: Efrain Birch Clinical Impression: Atrial fibrillation with tachycardic ventricular rate, CHF (congestive heart failure) Condition: Stable Coding Level of Care Code ED Travel Sales Consultant for Wade Ruby
--- NOTE | 2023-03-09 20:32 | ECG_ITS ---
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 Measurements Intervals [place] Rate: 135 P: 0 ME: 0 QRS: 55 QRSD: 144 T: 30 QT: 329 QTc: 494 Interpretive Statements ATRIAL FIBRILLATION WITH RAPID VENTRICULAR RESPONSE RIGHT BUNDLE BRANCH BLOCK [120+ ms QRS DURATION, UPRIGHT V1, 40+ ms S IN I/aVL/V4/V5/V6] Compared to ECG 10/02/2021 23:27:15 Atrial fibrillation is new Electronically Signed On 03-10-2023 13:54:23 FACILITY MAINTENANCE MECHANIC by Tati Nicolas M.D. [id number]
[2023-03-09 20:33] VITALS: BP 125/88; PULSE 130; RESP 20; TEMP 36.9; O2SAT 94; BMI 33.4
[2023-03-09 20:35] VITALS: PULSE 122; RESP 18; O2SAT 95
[2023-03-09] MEDS: ipratropium-albuterol 3 mL Neb INHALATION (20:35)
[2023-03-09 20:36] VITALS: BP 125/88; PULSE 121; RESP 22; O2SAT 96
[2023-03-09 20:40] VITALS: PULSE 130; RESP 18; O2SAT 94
[2023-03-09 20:51] LABS: ABG PCO2 33.3 mmHg (35-45); Arterial Blood Gas Hematocrit 42.7 % (42-52); Base Excess ABG -3.5 mmol/L (-2.0-2.0); Blood Gas Allen Test Pos; Blood Gas Sample Site Radial, left; Blood Gas Sample Type Arterial; HCO3 ABG 20.5 mmol/L (22-26); HGB O2 Sat 94.9 % (95-100); Methemoglobin 0.3 % (0.4-1.5); Oxygen Device NC; PO2 ABG 78.1 mmHg (80.0-100.0); Total Hemoglobin 13.9 g/dL (14-18)
[2023-03-09 20:56] LABS: Basophils # 0.1 10^3/uL (0.0-0.1); Basophils % 0.5 %; Eosinophils # 0.1 10^3/uL (0.0-0.8); Eosinophils % 1.4 %; Hematocrit 40.1 % (37-53); Lymphocytes % 19.5 %; Mean Corpuscular HGB Conc 32.7 g/dL (30-55); Mean Corpuscular Volume 97.8 fl (82-101); Mean Platelet Volume 11.4 fL (7.4-10.4); Monocytes # 0.8 10^3/uL (0.2-0.9); Monocytes % 7.7 %; Neutrophils # 6.93 10^3/uL (1.8-7.7); Neutrophils % 68.8 %; Nucleated Red Blood Cells % 0 %; Platelet Count 156 10^3/cmm (157-399); Red Cell Distribution Width 13.6 % (12.1-15.1); White Blood Count 10.06 10^3/uL (3.29-11.43)
[2023-03-09] MEDS: dilTIAZem 5 mg/mL SDV 5 mL 10 MG IVP (20:56)
[2023-03-09 21:00] VITALS: BP 136/72; PULSE 120; RESP 24; O2SAT 92
[2023-03-09 21:19] LABS: Influenza A by IFA negative (Negative); Influenza B by IFA negative (Negative)
--- NOTE | 2023-03-09 21:27 | PM.HP ---
Providers/Chief Complaint Primary Care Provider: Sirena Wong MD Chief Complaint: SOB History of Present Illness Adonis Means is a 82 year old male with history of diabetes, BPH, no previous history of CHF or A-fib no history of sleep apnea presented with chief, shortness of breath. Patient is stating that he has been struggling with low extremity swelling which she initially attributed to sedentary lifestyle, he was recently treated for bronchitis, he was recently started on Lasix when he was seen by the PCP clinic. He is experiencing orthopnea, PND, shortness of breath on exertion. He has not noticed any chest pain. No nausea, vomiting or fever. In the ER he has been diagnosed with A-fib RVR requiring Cardizem drip, he will also has new onset CHF As per the he does not snore much, is stating that around 2004 he had NSAID induced gastritis and he was in A-fib RVR, he was cardioverted to sinus rhythm since then he never required any cardiac evaluation or medication, she is stating that they do not see anyone other than Dr. Wong at [facility] Review of Systems Const: Reports: change in weight; Denies: fever(s) Eyes: Denies: change in vision ENMT: Denies: throat pain Card: Reports: swelling of feet/ankles; Denies: chest pain Resp: Reports: dyspnea GI: Denies: abdominal pain : Denies: flank pain Musc: Denies: neck pain Skin/Breast: Reports: rash Neuro: Denies: headache(s) Medications/Allergies Home Medications Medication Instructions Recorded Confirmed Last Taken Type blood-glucose meter 10/20/21 03/08/23 Unknown History lancets (Comfort Lancets) 10/20/21 03/08/23 Unknown History blood sugar diagnostic (Accu-Chek #100 strips 12/21/21 03/08/23 Unknown Rx Angely Plus test strips) galantamine 4 mg tablet 4 mg PO BID 90 days #180 tabs 12/11/22 03/08/23 Unknown Rx levothyroxine 137 mcg tablet 137 mcg PO DAILY 90 days #90 tabs 01/22/23 03/08/23 Unknown Rx tamsulosin 0.4 mg capsule 0.4 mg PO .at bedtime 90 days #90 01/22/23 03/08/23 Unknown Rx caps ipratropium 0.5 mg-albuterol 3 mg 3 ml inhalation Q6H PRN wheezing 03/04/23 03/08/23 Unknown Rx (2.5 mg base)/3 mL nebulization #90 mL soln prednisone 20 mg tablet 20 mg PO .AM 5 days #5 tabs 03/04/23 03/08/23 Unknown Rx finasteride 5 mg tablet 5 mg PO DAILY 30 days #90 tabs 03/08/23 03/08/23 Unknown Rx spironolactone 25 mg tablet 25 mg PO DAILY pulmonary 03/08/23 03/08/23 Unknown Rx hypertension and peripheral edema #30 tabs glimepiride 4 mg tablet 6 mg PO BID 90 days #270 tabs 03/09/23 03/09/23 Unknown Rx Allergies Allergy/AdvReac Type Severity Reaction Status Date / Time NSAIDS (Non-Steroidal Allergy ALGY-Anaphy Verified 03/08/23 10:30 Anti-Inflamma laxis Penicillins Allergy ALGY-Rash Verified 03/08/23 10:30 memantine AdvReac Mild drowsiness Verified 03/08/23 10:30 PFSH Acute PFSH: Medical History CHF (congestive heart failure) Enlarged prostate Hilar lymphadenopathy Hypertension Peripheral edema Pulmonary hyperinflation Thyroid disorder Type 2 diabetes mellitus Surgical History History of lumbar surgery Hx of cataract extraction Hx of surgical amputation of finger Family History Mother , in 70s Cancer Blood Father , at age 51 Accident at workplace Sister Dementia Denies family history of Diabetes Hyperlipidemia Chronic kidney disease (CKD) Bleeding disorder Hypertension Thyroid disease Stroke Social History Smoking and tobacco/nicotine status: never used tobacco/nicotine Alcohol intake: never Substance/Drug Use: never Lives independently: Yes Household members: spouse Marital status: Current occupational status: retired Vitals/I&O/Wt Last Vital Signs Temp 98.4 F 03/09/23 20:33 Pulse 120 H 03/09/23 21:00 Resp 24 H 03/09/23 21:00 BP 136/72 03/09/23 21:00 Pulse Ox 92 03/09/23 21:00 O2 Del Method Room Air 03/09/23 20:40 O2 Flow Rate 1.5 03/09/23 20:36 Weight last 48 hrs Weight 99.79 kg Physical Exam Narrative: Awake and alert No signs of heart failure Currently on 2 L A-fib RVR Lower extremity swelling Abdomen distended nontender S1, S2 variable No active wheezing but crackles present Pleasant and cooperative Nonfocal neuro exam GCS 15 Data 03/09/23 20:42 03/09/23 20:42 A&P Assessment and plan (1) Atrial fibrillation with tachycardic ventricular rate: (2) CHF (congestive heart failure): (3) Peripheral edema: (4) Alzheimer disease: (5) Lewy body dementia: (6) Thyroid disorder: (7) Hypertension: Qualifiers: Hypertension type: primary hypertension Qualified Code(s): I10 - Essential (primary) hypertension (8) Type 2 diabetes mellitus: Qualifiers: Diabetes mellitus director security risk management insulin use: without director security risk management use Diabetes mellitus complication status: without complication Qualified Code(s): E11.9 - Type 2 diabetes mellitus without complications (9) Enlarged prostate: (10) Hilar lymphadenopathy: Plan New onset CHF No previous history of CHF or A-fib Likely etiology is tachyarrhythmia We will request echo with contrast Check TSH Keep potassium above 4 and magnesium above 2 Weight control at this point with Cardizem Add p.o. Cardizem as well [id number] Patient will need Eliquis at the time of discharge, patient counseled on side effects patient does not have any history of GI ulcer however had NSAID induced gastritis in the past, never had screening colonoscopy Full code Cardiac diet/consistent carb Sliding scale Continue levothyroxine Acute hypoxia related to CHF exacerbation We will request overnight pulse oximeter to see if he would qualify for sleep study Seft interpretation of EKG A-fib RVR We will request D-dimer Attestations Medical Necessity Statement*: Anticipating more than 2 midnights for new onset CHF and A-fib RVR management Diagnoses Atrial fibrillation with tachycardic ventricular rate I48.91 CHF (congestive heart failure) I50.9 Peripheral edema R60.0 Alzheimer disease G30.9; F02.80 Lewy body dementia G31.83; F02.80 Thyroid disorder E07.9 Hypertension I10 Hypertension type: primary hypertension Type 2 diabetes mellitus E11.9 Diabetes mellitus director security risk management insulin use: without director security risk management use Diabetes mellitus complication status: without complication Enlarged prostate N40.0 Hilar lymphadenopathy R59.0
[2023-03-09 21:46] VITALS: BP 136/95; PULSE 135; RESP 21; O2SAT 97
[2023-03-09] MEDS: dilTIAZem 100 MG in sodium chloride 0.9% (add-van) 100 ML IV (21:55)
[2023-03-09 22:06] LABS: INR 1.17 (0.8-1.2)
--- NOTE | 2023-03-09 22:35 | ECG_ITS ---
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 Measurements Intervals [place] Rate: 136 P: 0 [place]: 0 QRS: 55 QRSD: 141 T: 32 QT: 336 QTc: 506 Interpretive Statements ATRIAL FIBRILLATION WITH RAPID VENTRICULAR RESPONSE RIGHT BUNDLE BRANCH BLOCK [120+ ms QRS DURATION, UPRIGHT V1, 40+ ms S IN I/aVL/V4/V5/V6] Compared to ECG 03/09/2023 20:32:03 No significant changes Electronically Signed On 03-10-2023 13:43:16 ROTARY KILN OPERATOR by Tati Nicolas M.D. [id number]
[2023-03-09 22:37] LABS: Alanine Aminotransferase 166 U/L (0-41); Albumin Level 3.9 g/dL (3.5-5.2); Alkaline Phosphatase 109 U/L (40-130); Aspartate Amino Transferase 158 U/L (0-40); Blood Urea Nitrogen 19 mg/dL (8-23); Calcium 9.2 mg/dL (8.5-10.5); Carbon Dioxide 22 mmol/L (22-29); Chloride 100 mmol/L (98-107); Globulin 3.8 g/dL (1.3-4.6); Glucose 249 mg/dL (65-115); NT Pro B Type Natriuretic Pept 2201 pg/mL (0-450); Osmolality Calculated 289 mOsm/kg (285-295); Sodium 134 mmol/L (136-145); Total Bilirubin 0.5 mg/dL (0.15-1.2); Total Protein 7.7 g/dL (6.6-8.7)
[2023-03-09 22:51] LABS: Troponin(5th) Baseline 147 ng/L (0-15)
[2023-03-09 23:00] VITALS: BMI 40.5
[2023-03-09 23:30] LABS: Thyroid Stimulating Hormone 5.55 uIU/mL (0.27-4.20)
[2023-03-10] VITALS (12 sets, daily range): BP systolic 100–143; BP diastolic 71–92; PULSE 91–138; RESP 19–29; TEMP 36.3–36.6; O2SAT 90–96; BMI 40.7
[2023-03-10] MEDS: dilTIAZem 30 mg Tablet PO ×5 (00:01→23:04)
[2023-03-10] MEDS: FUROsemide 10 mg/mL SDV 10mL 60 MG IVP (00:04)
[2023-03-10] MEDS: enoxaparin 100 mg/mL Syringe SUBCUT ×3 (00:08→23:05)
[2023-03-10 00:16] LABS: Troponin 5 2HR Delta 0.1 ABS# (0-10)
[2023-03-10 00:17] LABS: Troponin 5 2HR 147.1 ng/L (0-15)
[2023-03-10 01:51] LABS: Estmated Average Glucose 186; Hemoglobin A1C 8.1 % (4.0-6.0)
[2023-03-10 03:07] LABS: Basophils % 0.5 %; Eosinophils # 0.1 10^3/uL (0.0-0.8); Eosinophils % 1.5 %; Hematocrit 39.9 % (37-53); Lymphocytes # 1.6 10^3/uL (0.8-4.8); Lymphocytes % 18.8 %; Mean Corpuscular HGB Conc 32.6 g/dL (30-55); Mean Corpuscular Hemoglobin 31.6 pg (27-33); Mean Corpuscular Volume 97.1 fl (82-101); Mean Platelet Volume 10.8 fL (7.4-10.4); Monocytes # 0.8 10^3/uL (0.2-0.9); Monocytes % 8.9 %; Neutrophils # 5.81 10^3/uL (1.8-7.7); Neutrophils % 67.5 %; Nucleated Red Blood Cells % 0 %; Platelet Count 150 10^3/cmm (157-399); Red Blood Count 4.11 10^6/uL (3.85-5.65); Red Cell Distribution Width 13.3 % (12.1-15.1); White Blood Count 8.61 10^3/uL (3.29-11.43)
[2023-03-10 03:27] LABS: Troponin 5 6HR Delta -3.3 ng/L (0-12)
[2023-03-10 03:28] LABS: Troponin 5 6HR 143.7 ng/L (0-15)
[2023-03-10 03:33] LABS: Blood Urea Nitrogen 19 mg/dL (8-23); Calcium 8.9 mg/dL (8.5-10.5); Carbon Dioxide 20 mmol/L (22-29); Chloride 102 mmol/L (98-107); Glucose 198 mg/dL (65-115); Magnesium 1.8 mg/dL (1.7-2.3); Osmolality Calculated 288 mOsm/kg (285-295); Sodium 135 mmol/L (136-145)
[2023-03-10] MEDS: dilTIAZem 100 MG in sodium chloride 0.9% (add-van) 100 ML 12.5 MG IV ×2 (05:55→14:03)
--- NOTE | 2023-03-10 06:00 | USCV_ITS ---
Adonis Means Age: 82 Gender: M : 1940 Exam Date: 03/10/2023 14:22 Ordering Phys: Efrain Birch MD Technologist: Derek Chi Exam Location: [facility] [place] Indication: New onset chf BP: 128 / 81 HR: 108 Rhythm: Sinus Technical Quality: Technically difficult study MEASUREMENTS (Male / Female) Normal Values 2D ECHO LVOT Diameter 2.0 cm LV Ejection Fraction MOD 2C 69.3 % LV Ejection Fraction 2C AL 70.3 % LA Diameter 3.8 cm LA Width 3.5 cm LA Height 5.7 cm RA Width 3.8 cm RA Height 4.3 cm Aorta at Sinotubular Diameter 2.3 cm IVC Diameter 2.4 cm M-MODE Aortic Annulus Diameter 2.5 cm LA Ao Ratio MM 1.7 MV E Point Septal Separation 0.6 cm DOPPLER AV Peak Velocity 199.0 cm/s LVOT Peak Velocity 71.0 cm/s AV Area Cont Eq vti 1.0 cm squared AV Area Cont Eq pk 1.1 cm squared MV Area PHT 5.0 cm squared Mitral E to A Ratio 3.3 MV E' Velocity 51.5 cm/s Mitral E to MV E' Ratio 10.7 Mitral E to LV E' Lateral Ratio 11.1 Mitral E to LV E' Septal Ratio 10.4 TR Peak Velocity 197.6 cm/s TR Peak Gradient 15.6 mmHg TR Mean Velocity 141.9 cm/s TR Mean Gradient 8.4 mmHg TR Velocity Time Integral 35.9 cm Right Atrial Pressure 15.0 mmHg Pulmonary Artery Systolic Pressu 30.6 mmHg PV Peak Velocity 82.0 cm/s RV Acceleration Time 0.1 s RV Ejection Time 0.3 s RV AcT/ET 0.4 FINDINGS Left Ventricle Normal left ventricular size, systolic function and wall thickness, with no regional wall motion abnormalities. Left ventricular ejection fraction is estimated at 65 %. Right Ventricle Normal right ventricular size and systolic function. Right Atrium Normal right atrial size. Left Atrium Normal left atrial size. Mitral Valve Thickened mitral valve. Mitral annular calcification. No mitral valve stenosis. Trace mitral valve regurgitation. Aortic Valve Aortic valve not well visualized. No aortic valve stenosis. Tricuspid Valve Tricuspid valve not well visualized. Trace tricuspid valve regurgitation. Pulmonic Valve Pulmonic valve not well visualized. Trace pulmonary valve regurgitation. Pericardium No pericardial effusion. Aorta Normal size aortic root and proximal ascending aorta. IVC Normal IVC dimension with <50% respiratory change of the inferior vena cava. CONCLUSIONS Technically difficult study, contrast was used to assess LV function. 1. Normal LV systolic function. Estimated LVEF 65%. 2. Normal chamber sizes. 3. No significant valvular abnormality noted. 4. Normal right heart and pulmonary pressures. Tati Nicolas MD (Electronically Signed) Final Date: 11 March 2023 08:33 S
[2023-03-10] MEDS: levothyroxine 137 mcg Tablet PO (06:01)
[2023-03-10 06:43] LABS: Glucose Point of Care 173 mg/dL (70-110)
--- NOTE | 2023-03-10 08:54 | CTR_ITS ---
PROCEDURE INFORMATION: Exam: CT Chest Without Contrast; Diagnostic Exam date and time: 03/10/2023 2:03 PM Age: 82 years old Clinical indication: Shortness of breath; Additional info: SOB, hilar adenopathy TECHNIQUE: Imaging protocol: Diagnostic computed tomography of the chest without contrast. Radiation optimization: All CT scans at this facility use at least one of these dose optimization techniques: automated exposure control; mA and/or kV adjustment per patient size (includes targeted exams where dose is matched to clinical indication); or iterative reconstruction. REPORTING DATA: Count of CT and Cardiac NM exams in prior 12 months: This patient has received [address] and 0 known cardiac nuclear medicine studies in the 12 months prior to the current study. COMPARISON: CT chest w con* [id number] 12/26/2021 2:33 PM RADIATION DOSE METRICS: Total DLP (mGy-cm): 722.1 FINDINGS: Lungs: Bilateral atelectasis with some areas of probable superimposed pneumonitis. Pleural spaces: [id number] freely layering bilateral pleural effusions. Otherwise, unremarkable. Heart: Unremarkable. No cardiomegaly. No pericardial effusion. Coronary arteries: Moderate amount of coronary artery calcification. Lymph nodes: Unremarkable. No enlarged lymph nodes. Vasculature: Moderate amount of aortic calcification. Liver: Shape of the liver suggests cirrhosis. Gallbladder and bile ducts: Several small gallstones in the, otherwise, normal-appearing gallbladder. Bones/joints: Mild scoliosis with mild and moderate multilevel spondylosis. Some thoracic ankylosis. Otherwise, unremarkable. Soft tissues: Otherwise, unremarkable. CT/CT chest wo con [id number] IMPRESSION: 1. Hwzdmcwq-zx-vzjfl freely layering bilateral pleural effusions. 2. Bilateral atelectasis with some areas of probable superimposed pneumonitis. 3. Additional details as above.
[2023-03-10 09:31] LABS: Procalcitonin 0.14 ng/mL (0-0.5)
[2023-03-10 09:41] LABS: C Reactive Protein 5.9 mg/L (0.0-4.9)
[2023-03-10] MEDS: insulin lispro 100 unit/1 mL SUBCUT ×3 (09:54→17:53)
[2023-03-10] MEDS: magnesium lactate 84 mg Tablet PO ×2 (09:54→17:53)
[2023-03-10] MEDS: finasteride 5 mg Tablet PO (09:54)
--- NOTE | 2023-03-10 12:29 | P.PN_ITS ---
Subjective Subjective: Patient was seen this morning, does report shortness of breath, no chest pain, currently on Cardizem drip, denies a cardiovascular history, no cough, he is alert to person, to place, not to time, can follow commands, Vitals/I&O/Wt Last Vital Signs Temp 97.8 F 03/10/23 12:24 Pulse 98 03/10/23 12:24 Resp 21 H 03/10/23 12:24 BP 128/81 03/10/23 12:24 Pulse Ox 95 03/10/23 12:24 O2 Del Method Room Air 03/10/23 12:24 O2 Flow Rate 1.5 03/09/23 21:46 03/09/23 03/10/23 03/10/23 22:59 06:59 14:59 Intake Total 3.917 / 3.917 215.041 / 218.958 Output Total 600 / 600 Balance 3.917 / 3.917 -384.959 / -381.042 Weight last 48 hrs Weight 120.383 kg Weight 121.563 kg Weight 121.018 kg Weight 99.79 kg Physical Exam Const: COMMON NORMALS: no acute distress Resp: COMMON NORMALS: normal respiratory effort, No retractions and No use of accessory muscles AUSCULTATION: crackles Cardio: COMMON NORMALS: S1 normal heart sound present and S2 normal heart sound present RATE: tachycardic RHYTHM: abnormal rhythm HEART SOUNDS: S1 normal heart sound present and S2 normal heart sound present GI: COMMON NORMALS: Normal to inspection, nondistended, normoactive bowel sounds present and non-tender Extremity: NARRATIVE EXTREMITY EXAM: 2+ pitting edema bilateral extremity Neuro: COMMON NORMALS: CN's II-XII intact bilaterally, moves all extremities and no focal motor deficits Psych: COMMON NORMALS: mental status grossly normal Urinary Catheter Management: Sanches: Cath Placed During This Visit: yes Urinary Catheter Date of Insertion: 03/10/23 Urinary Catheter Time of Insertion: 08:36 Data 03/10/23 02:12 03/10/23 02:12 A&P Assessment and plan (1) Atrial fibrillation with tachycardic ventricular rate: (2) CHF (congestive heart failure): (3) Peripheral edema: (4) Alzheimer disease: (5) Lewy body dementia: (6) Thyroid disorder: (7) Hypertension: Qualifiers: Hypertension type: primary hypertension Qualified Code(s): I10 - Essential (primary) hypertension (8) Type 2 diabetes mellitus: Qualifiers: Diabetes mellitus [facility] insulin use: without emt intermediate use Diabetes mellitus complication status: without complication Qualified Code(s): E11.9 - Type 2 diabetes mellitus without complications (9) Enlarged prostate: (10) Hilar lymphadenopathy: (11) Acute encephalopathy: Plan New onset CHF No previous history of CHF or A-fib Likely etiology is tachyarrhythmia We will request echo with contrast We will order CT of the chest Keep potassium above 4 and magnesium above 2 Weight control at this point with Cardizem Add p.o. Cardizem as well Last Lasix 40 mg IV push today, monitor urine output [id number] Patient will need Eliquis at the time of discharge, patient counseled on side effects patient does not have any history of GI ulcer however had NSAID induced gastritis in the past, never had screening colonoscopy Full code Cardiac diet/consistent carb Sliding scale Continue levothyroxine Acute hypoxia related to CHF exacerbation We will request overnight pulse oximeter to see if he would qualify for sleep study Seft interpretation of EKG A-fib RVR Acute encephalopathy, does have underlying dementia, monitor mentation closely, CT of the head, aspiration precautions, night stroke scale, neurochecks Plan for today continue Cardizem drip wean off transition to p.o. Cardizem, Lasix today, CT of the chest, follow sputum cultures, respiratory viral panel, monitor clinical clinical status Attestations Medical Necessity Statement*: Patient requires hospitalization for new onset CHF, A-fib with RVR, shortness of breath, inpatient, greater than 2 midnights Diagnoses Atrial fibrillation with tachycardic ventricular rate I48.91 CHF (congestive heart failure) I50.9 Peripheral edema R60.0 Alzheimer disease G30.9; F02.80 Lewy body dementia G31.83; F02.80 Thyroid disorder E07.9 Hypertension I10 Hypertension type: primary hypertension Type 2 diabetes mellitus E11.9 Diabetes mellitus emt intermediate insulin use: without [facility] use Diabetes mellitus complication status: without complication Enlarged prostate N40.0 Hilar lymphadenopathy R59.0 Acute encephalopathy G93.40
--- NOTE | 2023-03-10 12:32 | CTR_ITS ---
PROCEDURE INFORMATION: Exam: CT Head Without Contrast Exam date and time: 03/10/2023 2:00 PM Age: 82 years old Clinical indication: Altered mental status/memory loss; TECHNIQUE: Imaging protocol: Computed tomography of the head without contrast. Radiation optimization: All CT scans at this facility use at least one of these dose optimization techniques: automated exposure control; mA and/or kV adjustment per patient size (includes targeted exams where dose is matched to clinical indication); or iterative reconstruction. REPORTING DATA: Count of CT and Cardiac NM exams in prior 12 months: This patient has received [address] and 0 known cardiac nuclear medicine studies in the 12 months prior to the current study. COMPARISON: CT head wo con* [id number] 03/22/2022 10:32 PM RADIATION DOSE METRICS: Total DLP (mGy-cm): 1249.54 FINDINGS: Brain: There is mild diffuse cerebral atrophy present, consistent with this patient's age. Periventricular and subcortical white matter low densities are present which at this age likely represent microvascular ischemic change. No evidence for large acute ischemic infarction. Please note acute ischemia can be occult by head CT. No evidence for acute intracranial hemorrhage. Calcified plaque is present within the intracranial vasculature. Cerebral ventricles: No ventriculomegaly. Paranasal sinuses: There is a small mucous retention cyst in the right maxillary sinus. Mild mucosal thickening of the left sphenoid sinus. Mastoid air cells: Visualized mastoid air cells are well aerated. Bones/joints: Unremarkable. No acute fracture. Soft tissues: Unremarkable. CT/CT head wo con* [id number] IMPRESSION: There are senescent changes of the brain as described above. No evidence for large acute ischemic infarction or acute intracranial injury.
[2023-03-10] MEDS: ipratropium-albuterol 3 mL Neb INHALATION (12:34)
[2023-03-10 12:47] LABS: Glucose Point of Care 221 mg/dL (70-110)
[2023-03-10] MEDS: FUROsemide 10 mg/mL SDV 4mL 40 MG IVP (13:00)
[2023-03-10] MEDS: perflutren protein-a microsphr 0.22 mg/mL SDV 3 mL IV (15:06)
[2023-03-10 17:00] LABS: Adenovirus Not Detected (NOT DETECT); Chlamydia Pneumoniae Not Detected (NOT DETECT); Coronavirus 229E,HKU1,NL63,OC4 Not Detected (NOT DETECT); Human Metapneumovirus Not Detected (NOT DETECT); Human Rhinovirus/Enterovirus Not Detected (NOT DETECT); Influenza A Not Detected (NOT DETECT); Influenza A H1 Not Detected (NOT DETECT); Influenza A H1-2009 Not Detected (NOT DETECT); Influenza A H3 Not Detected (NOT DETECT); Influenza B Not Detected (NOT DETECT); Mycoplasma Pneumoniae Not Detected (NOT DETECT); Parainfluenza Virus Type 1 Not Detected (NOT DETECT); Parainfluenza Virus Type 2 Not Detected (NOT DETECT); Parainfluenza Virus Type 3 Not Detected (NOT DETECT); Parainfluenza Virus Type 4 Not Detected (NOT DETECT); Respiratory Syncytial Virus A Not Detected (NOT DETECT); Respiratory Syncytial Virus B Not Detected (NOT DETECT); SARS-COV-2 Not Detected (NOT DETECT)
[2023-03-10 17:56] LABS: Glucose Point of Care 225 mg/dL (70-110)
[2023-03-10 21:38] LABS: Glucose Point of Care 116 mg/dL (70-110)
[2023-03-10] MEDS: dilTIAZem 100 MG in sodium chloride 0.9% (add-van) 100 ML 7.5 MG IV (23:06)
[2023-03-11] VITALS (16 sets, daily range): BP systolic 92–125; BP diastolic 40–81; PULSE 70–145; RESP 16–37; TEMP 36.4–36.7; O2SAT 91–96
[2023-03-11 03:19] LABS: Basophils % 0.4 %; Eosinophils # 0.2 10^3/uL (0.0-0.8); Eosinophils % 1.6 %; Hematocrit 39.6 % (37-53); Lymphocytes # 1.8 10^3/uL (0.8-4.8); Lymphocytes % 16.4 %; Mean Corpuscular HGB Conc 32.3 g/dL (30-55); Mean Corpuscular Hemoglobin 32.1 pg (27-33); Mean Corpuscular Volume 99.2 fl (82-101); Mean Platelet Volume 10.6 fL (7.4-10.4); Monocytes # 1.1 10^3/uL (0.2-0.9); Monocytes % 9.7 %; Neutrophils # 7.72 10^3/uL (1.8-7.7); Neutrophils % 70.1 %; Nucleated Red Blood Cells % 0 %; Platelet Count 147 10^3/cmm (157-399); Red Blood Count 3.99 10^6/uL (3.85-5.65); Red Cell Distribution Width 13.3 % (12.1-15.1); White Blood Count 11.02 10^3/uL (3.29-11.43)
[2023-03-11 03:47] LABS: Alanine Aminotransferase 115 U/L (0-41); Albumin Level 3.5 g/dL (3.5-5.2); Alkaline Phosphatase 90 U/L (40-130); Blood Urea Nitrogen 20 mg/dL (8-23); Calcium 8.7 mg/dL (8.5-10.5); Carbon Dioxide 23 mmol/L (22-29); Chloride 102 mmol/L (98-107); Globulin 2.9 g/dL (1.3-4.6); Glucose 110 mg/dL (65-115); Magnesium 1.8 mg/dL (1.7-2.3); Osmolality Calculated 285 mOsm/kg (285-295); Phosphorus 3.8 mg/dL (2.5-4.5); Sodium 136 mmol/L (136-145); Total Bilirubin 0.6 mg/dL (0.15-1.2); Total Protein 6.4 g/dL (6.6-8.7)
[2023-03-11 03:48] LABS: Anion Gap 15.2 (5-19); Aspartate Amino Transferase 91 U/L (0-40); Potassium 4.2 mmol/L (3.5-5.1)
[2023-03-11 03:53] LABS: NT Pro B Type Natriuretic Pept 1268 pg/mL (0-450)
[2023-03-11] MEDS: levothyroxine 137 mcg Tablet PO (05:17)
[2023-03-11] MEDS: dilTIAZem 30 mg Tablet PO (05:17)
[2023-03-11 06:56] LABS: Glucose Point of Care 162 mg/dL (70-110)
[2023-03-11] MEDS: doxycycline 100 mg Tablet PO ×2 (10:34→18:11)
[2023-03-11] MEDS: dilTIAZem 30 mg Tablet 60 MG PO ×3 (10:34→21:31)
[2023-03-11] MEDS: metOLazone 5 MG Tablet PO (10:34)
[2023-03-11] MEDS: FUROsemide 10 mg/mL SDV 4mL 40 MG IVP (10:35)
[2023-03-11] MEDS: magnesium lactate 84 mg Tablet PO ×2 (10:35→18:11)
[2023-03-11] MEDS: potassium chloride ER 20 mEq Tablet 40 MEQ PO (10:35)
[2023-03-11] MEDS: finasteride 5 mg Tablet PO (10:35)
[2023-03-11] MEDS: insulin lispro 100 unit/1 mL SUBCUT ×3 (10:36→18:11)
[2023-03-11] MEDS: ipratropium-albuterol 3 mL Neb INHALATION ×2 (10:59→16:08)
[2023-03-11 11:33] LABS: Glucose Point of Care 256 mg/dL (70-110)
[2023-03-11] MEDS: enoxaparin 100 mg/mL Syringe SUBCUT (12:05)
[2023-03-11] MEDS: metoprolol tartrate 25 mg Tablet PO ×2 (13:51→21:31)
--- NOTE | 2023-03-11 15:26 | P.PN_ITS ---
Subjective Subjective: Patient was seen this morning, patient's family present at bedside, patient has underlying dementia, family members tell me, he is sitting up in a chair, does report shortness of breath, remains on Cardizem drip, heart rates in the 120s, we discussed monitoring his heart rates, weaning him off the Cardizem drip have increased his p.o. Cardizem, he continues to have wheezing and crackles on exam with lower extremity edema, will give him more diuretics today, he is agreeable, denies any fevers, no cough, Vitals/I&O/Wt Last Vital Signs Temp 98.0 F 03/11/23 07:36 Pulse 145 H 03/11/23 12:00 Resp 18 03/11/23 11:01 BP 115/75 03/11/23 12:00 Pulse Ox 94 03/11/23 12:00 O2 Del Method Room Air 03/11/23 11:01 O2 Flow Rate 1.5 03/09/23 21:46 03/11/23 03/11/23 03/11/23 06:59 14:59 22:59 Intake Total 14.25 / 312.583 480 / 480 Output Total 250 / 2200 Balance -235.75 / -1887.417 480 / 480 Weight last 48 hrs Weight 120.202 kg Weight 120.383 kg Weight 121.563 kg Weight 121.018 kg Weight 99.79 kg Physical Exam Const: COMMON NORMALS: no acute distress and patient oriented x3 Resp: COMMON NORMALS: normal respiratory effort, No retractions and No use of accessory muscles AUSCULTATION: crackles and wheezes Cardio: COMMON NORMALS: regular rate, regular rhythm, S1 normal heart sound present and S2 normal heart sound present RATE: regular rate RHYTHM: regular rhythm HEART SOUNDS: S1 normal heart sound present and S2 normal heart sound present GI: COMMON NORMALS: Normal to inspection, nondistended, normoactive bowel sounds present and non-tender Extremity: NARRATIVE EXTREMITY EXAM: 2+ pitting edema Neuro: COMMON NORMALS: patient oriented x3 Psych: COMMON NORMALS: mental status grossly normal Urinary Catheter Management: Sanches: Cath Placed During This Visit: yes Reason for Continuing Indwelling Catheter: Accurate Measurement of Urinary Output in Critically Ill Patients Urinary Catheter Date of Insertion: 03/10/23 Urinary Catheter Time of Insertion: 08:36 Data 03/11/23 02:24 03/11/23 02:24 A&P Assessment and plan (1) Atrial fibrillation with tachycardic ventricular rate: (2) CHF (congestive heart failure): (3) Peripheral edema: (4) Alzheimer disease: (5) Lewy body dementia: (6) Thyroid disorder: (7) Hypertension: Qualifiers: Hypertension type: primary hypertension Qualified Code(s): I10 - Essential (primary) hypertension (8) Type 2 diabetes mellitus: Qualifiers: Diabetes mellitus correction insulin use: without joint terminal attack controller use Diabetes mellitus complication status: without complication Qualified Code(s): E11.9 - Type 2 diabetes mellitus without complications (9) Enlarged prostate: (10) Hilar lymphadenopathy: (11) Acute encephalopathy: Plan New onset CHF, New onset A-fib with RVR No previous history of CHF or A-fib Likely etiology is tachyarrhythmia Keep potassium above 4 and magnesium above 2 Continue Cardizem drip Add p.o. Cardizem as well Last Lasix 40 mg IV push today, with metolazone monitor urine output [id number] Cardiac echo CONCLUSIONS ?Technically difficult study, contrast was used to assess LV ?function. ?1.? Normal LV systolic function.? Estimated LVEF 65%. ?2.? Normal chamber sizes. ?3.? No significant valvular abnormality noted. ?4.? Normal right heart and pulmonary pressures. Switch from Lovenox, to Eliquis Full code Cardiac diet/consistent carb Sliding scale Continue levothyroxine Acute hypoxia related to CHF exacerbation, diuresis as above We will request overnight pulse oximeter to see if he would qualify for sleep study CT of the chest does show evidence of pneumonitis, possible pneumonia, remains afebrile, no significant leukocytosis we will start doxycycline Acute encephalopathy, does have underlying dementia, monitor mentation closely, CT of the head no acute findings, aspiration precautions, night stroke scale, neurochecks Plan for today, wean off Cardizem drip, increase p.o. 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
--- NOTE | 2023-03-11 15:28 | PC.SOCIAL ---
IMM Update pg 2 of IMM updated and reviewed w/ patient. Copy provided and Copy dated, initialed and placed in chart.
[2023-03-11 16:53] LABS: Glucose Point of Care 163 mg/dL (70-110)
[2023-03-11] MEDS: tamsulosin 0.4 mg Capsule PO (21:30)
[2023-03-11] MEDS: apixaban 5 mg Tablet PO (21:35)
[2023-03-11 22:18] LABS: Glucose Point of Care 172 mg/dL (70-110)
[2023-03-12] VITALS (59 sets, daily range): BP systolic 103–133; BP diastolic 66–88; PULSE 85–143; RESP 16–28; TEMP 36.3–36.5; O2SAT 91–98
[2023-03-12] MEDS: dilTIAZem 30 mg Tablet 60 MG PO ×4 (02:17→20:25)
[2023-03-12] MEDS: levothyroxine 137 mcg Tablet PO (06:19)
[2023-03-12 08:22] LABS: Glucose Point of Care 154 mg/dL (70-110)
[2023-03-12 08:27] LABS: Alanine Aminotransferase 100 U/L (0-41); Albumin Level 3.3 g/dL (3.5-5.2); Alkaline Phosphatase 87 U/L (40-130); Anion Gap 14.1 (5-19); Aspartate Amino Transferase 74 U/L (0-40); Blood Urea Nitrogen 21 mg/dL (8-23); Calcium 9.2 mg/dL (8.5-10.5); Carbon Dioxide 25 mmol/L (22-29); Chloride 99 mmol/L (98-107); Globulin 3.2 g/dL (1.3-4.6); Glucose 126 mg/dL (65-115); Magnesium 1.8 mg/dL (1.7-2.3); NT Pro B Type Natriuretic Pept 1343 pg/mL (0-450); Osmolality Calculated 283 mOsm/kg (285-295); Phosphorus 3.4 mg/dL (2.5-4.5); Potassium 4.1 mmol/L (3.5-5.1); Sodium 134 mmol/L (136-145); Total Bilirubin 0.7 mg/dL (0.15-1.2); Total Protein 6.5 g/dL (6.6-8.7)
[2023-03-12] MEDS: metoprolol tartrate 25 mg Tablet PO ×2 (09:09→13:31)
[2023-03-12] MEDS: magnesium lactate 84 mg Tablet PO ×2 (09:09→17:32)
[2023-03-12] MEDS: doxycycline 100 mg Tablet PO ×2 (09:09→17:32)
[2023-03-12] MEDS: apixaban 5 mg Tablet PO ×2 (09:09→20:24)
[2023-03-12] MEDS: finasteride 5 mg Tablet PO (09:09)
[2023-03-12] MEDS: insulin lispro 100 unit/1 mL SUBCUT ×3 (09:10→17:32)
[2023-03-12 09:19] LABS: Basophils % 0.3 %; Eosinophils # 0.1 10^3/uL (0.0-0.8); Eosinophils % 1.6 %; Hematocrit 39.2 % (37-53); Lymphocytes # 1.8 10^3/uL (0.8-4.8); Lymphocytes % 20.9 %; Mean Corpuscular HGB Conc 32.9 g/dL (30-55); Mean Corpuscular Hemoglobin 32.1 pg (27-33); Mean Corpuscular Volume 97.5 fl (82-101); Mean Platelet Volume 10.7 fL (7.4-10.4); Monocytes # 0.9 10^3/uL (0.2-0.9); Monocytes % 10.6 %; Neutrophils # 5.66 10^3/uL (1.8-7.7); Neutrophils % 64.5 %; Nucleated Red Blood Cells % 0 %; Platelet Count 151 10^3/cmm (157-399); Red Blood Count 4.02 10^6/uL (3.85-5.65); Red Cell Distribution Width 13.2 % (12.1-15.1); White Blood Count 8.77 10^3/uL (3.29-11.43)
[2023-03-12] MEDS: FUROsemide 10 mg/mL SDV 4mL 40 MG IVP (10:13)
[2023-03-12] MEDS: potassium chloride ER 20 mEq Tablet 40 MEQ PO (10:13)
[2023-03-12] MEDS: metOLazone 5 MG Tablet PO (10:13)
--- NOTE | 2023-03-12 12:09 | P.PN_ITS ---
Subjective 2 Subjective: Patient was seen this morning, is at bedside, he continues to have heart rates in the 120s, does have lower extremity edema, reports of shortness of breath, no fevers, chills, no cough Vitals/I&O/Wt Last Vital Signs Temp 97.7 F 03/12/23 08:51 Pulse 123 H 03/12/23 08:51 Resp 22 H 03/12/23 08:51 BP 111/87 03/12/23 08:51 Pulse Ox 98 03/12/23 08:51 O2 Del Method Room Air 03/12/23 08:51 O2 Flow Rate 1.5 03/09/23 21:46 03/11/23 03/12/23 03/12/23 22:59 06:59 14:59 Intake Total 661.917 / 1141.917 360 / 360 Output Total 1700 / 1700 700 / 700 Balance -1038.083 / -558.083 -340 / -340 Weight last 48 hrs Weight 120.202 kg Physical Exam 2 Const: COMMON NORMALS: no acute distress and patient oriented x3 Resp: COMMON NORMALS: normal respiratory effort, No retractions, No use of accessory muscles and clear to auscultation bilaterally AUSCULTATION: clear to auscultation bilaterally Cardio: COMMON NORMALS: S1 normal heart sound present, S2 normal heart sound present, No gallops present (Cardio), No clicks present (Cardio) and No murmurs present (Cardio) RATE: tachycardic RHYTHM: abnormal rhythm HEART SOUNDS: S1 normal heart sound present and S2 normal heart sound present GI: COMMON NORMALS: Normal to inspection, nondistended, normoactive bowel sounds present and non-tender Extremity: NARRATIVE EXTREMITY EXAM: 1+ edema Neuro: COMMON NORMALS: patient oriented x3 Urinary Catheter Management: Sanches: Cath Placed During This Visit: yes Reason for Continuing Indwelling Catheter: Accurate Measurement of Urinary Output in Critically Ill Patients Urinary Catheter Date of Insertion: 03/10/23 Urinary Catheter Time of Insertion: 08:36 Data 03/12/23 04:05 03/12/23 04:05 A&P Assessment and plan (1) Atrial fibrillation with tachycardic ventricular rate: (2) CHF (congestive heart failure): (3) Peripheral edema: (4) Alzheimer disease: (5) Lewy body dementia: (6) Thyroid disorder: (7) Hypertension: Qualifiers: Hypertension type: primary hypertension Qualified Code(s): I10 - Essential (primary) hypertension (8) Type 2 diabetes mellitus: Qualifiers: Diabetes mellitus retirement insulin use: without watermelon inspector use Diabetes mellitus complication status: without complication Qualified Code(s): E11.9 - Type 2 diabetes mellitus without complications (9) Enlarged prostate: (10) Hilar lymphadenopathy: (11) Acute encephalopathy: Plan New onset CHF, New onset A-fib with RVR No previous history of CHF or A-fib Likely etiology is tachyarrhythmia Keep potassium above 4 and magnesium above 2 Continue Cardizem drip Add p.o. Cardizem as well Last Lasix 40 mg IV push today, with metolazone monitor urine output [id number] Cardiac echo CONCLUSIONS ?Technically difficult study, contrast was used to assess LV ?function. ?1.? Normal LV systolic function.? Estimated LVEF 65%. ?2.? Normal chamber sizes. ?3.? No significant valvular abnormality noted. ?4.? Normal right heart and pulmonary pressures. Switch from Lovenox, to Eliquis Full code Cardiac diet/consistent carb Sliding scale Continue levothyroxine Acute hypoxia related to CHF exacerbation, diuresis as above We will request overnight pulse oximeter to see if he would qualify for sleep study CT of the chest does show evidence of pneumonitis, possible pneumonia, remains afebrile, no significant leukocytosis we will start doxycycline Acute encephalopathy, does have underlying dementia, monitor mentation closely, CT of the head no acute findings, aspiration precautions, night stroke scale, neurochecks Plan for today, A-fib with RVR increase metoprolol to 50 twice daily, continue p.o. Cardizem, diuresis with Lasix and metolazone today, Attestations 2 Medical Necessity Statement*: Patient requires hospitalization for fluid overload requiring diuresis, A-fib with RVR Diagnoses Atrial fibrillation with tachycardic ventricular rate I48.91 CHF (congestive heart failure) I50.9 Peripheral edema R60.0 Alzheimer disease G30.9; F02.80 Lewy body dementia G31.83; F02.80 Thyroid disorder E07.9 Primary hypertension I10 Hypertension type: primary hypertension Type 2 diabetes mellitus without complication, without long-term current use of insulin E11.9 Diabetes mellitus retirement insulin use: without retirement use Diabetes mellitus complication status: without complication Enlarged prostate N40.0 Hilar lymphadenopathy R59.0 Acute encephalopathy G93.40
[2023-03-12 12:53] LABS: Glucose Point of Care 215 mg/dL (70-110)
[2023-03-12 16:41] LABS: Glucose Point of Care 219 mg/dL (70-110)
[2023-03-12] MEDS: nystatin powder 15 gm Btl 1 APPLIC TOPICAL (17:34)
[2023-03-12] MEDS: metoprolol tartrate 25 mg Tablet 50 MG PO (20:24)
[2023-03-12] MEDS: tamsulosin 0.4 mg Capsule PO (20:25)
[2023-03-13] VITALS (12 sets, daily range): BP systolic 93–129; BP diastolic 67–97; PULSE 61–121; RESP 17–23; TEMP 36.3–36.6; O2SAT 93–96; BMI 39.2
[2023-03-13 00:05] LABS: Glucose Point of Care 170 mg/dL (70-110)
[2023-03-13] MEDS: dilTIAZem 30 mg Tablet 60 MG PO ×2 (02:09→08:58)
[2023-03-13 04:46] LABS: Basophils # 0.1 10^3/uL (0.0-0.1); Basophils % 0.6 %; Eosinophils # 0.2 10^3/uL (0.0-0.8); Eosinophils % 1.9 %; Hematocrit 40.1 % (37-53); Lymphocytes # 1.6 10^3/uL (0.8-4.8); Lymphocytes % 18.5 %; Mean Corpuscular HGB Conc 32.7 g/dL (30-55); Mean Corpuscular Hemoglobin 31.3 pg (27-33); Mean Corpuscular Volume 95.9 fl (82-101); Mean Platelet Volume 10.6 fL (7.4-10.4); Monocytes # 0.9 10^3/uL (0.2-0.9); Neutrophils # 5.61 10^3/uL (1.8-7.7); Neutrophils % 65.9 %; Nucleated Red Blood Cells % 0 %; Platelet Count 148 10^3/cmm (157-399); Red Blood Count 4.18 10^6/uL (3.85-5.65); White Blood Count 8.52 10^3/uL (3.29-11.43)
[2023-03-13 05:04] LABS: Alanine Aminotransferase 91 U/L (0-41); Albumin Level 3.3 g/dL (3.5-5.2); Alkaline Phosphatase 103 U/L (40-130); Aspartate Amino Transferase 79 U/L (0-40); Blood Urea Nitrogen 20 mg/dL (8-23); Calcium 9.3 mg/dL (8.5-10.5); Carbon Dioxide 27 mmol/L (22-29); Chloride 95 mmol/L (98-107); Globulin 3.3 g/dL (1.3-4.6); Glucose 165 mg/dL (65-115); Magnesium 1.8 mg/dL (1.7-2.3); Osmolality Calculated 278 mOsm/kg (285-295); Phosphorus 3.4 mg/dL (2.5-4.5); Sodium 131 mmol/L (136-145); Total Bilirubin 0.7 mg/dL (0.15-1.2); Total Protein 6.6 g/dL (6.6-8.7)
[2023-03-13 05:08] LABS: Anion Gap 13.5 (5-19); Potassium 4.5 mmol/L (3.5-5.1)
[2023-03-13 05:12] LABS: NT Pro B Type Natriuretic Pept 1594 pg/mL (0-450)
[2023-03-13] MEDS: levothyroxine 137 mcg Tablet PO (06:09)
[2023-03-13 07:50] LABS: Glucose Point of Care 147 mg/dL (70-110)
[2023-03-13] MEDS: finasteride 5 mg Tablet PO (08:58)
[2023-03-13] MEDS: insulin lispro 100 unit/1 mL SUBCUT ×3 (08:58→17:13)
[2023-03-13] MEDS: doxycycline 100 mg Tablet PO ×2 (08:58→17:13)
[2023-03-13] MEDS: FUROsemide 10 mg/mL SDV 4mL 40 MG IVP (08:58)
[2023-03-13] MEDS: magnesium lactate 84 mg Tablet PO ×2 (08:58→17:13)
[2023-03-13] MEDS: apixaban 5 mg Tablet PO ×2 (08:58→21:28)
[2023-03-13] MEDS: metoprolol tartrate 25 mg Tablet 50 MG PO ×2 (09:05→21:28)
[2023-03-13] MEDS: dilTIAZem 30 mg Tablet PO (11:22)
[2023-03-13 11:52] LABS: Glucose Point of Care 252 mg/dL (70-110)
--- NOTE | 2023-03-13 13:20 | P.PN_ITS ---
Subjective 2 Subjective: Patient was seen this morning, is at bedside, he tells me that his shortness of breath is improving continues to have lower extreme edema but improved, his heart rates do go up into the 120s with exertion, currently heart rates are in the 115's to 120s, A-fib, Vitals/I&O/Wt Last Vital Signs Temp 97.6 F 03/13/23 11:06 Pulse 108 H 03/13/23 11:06 Resp 21 H 03/13/23 11:06 BP 118/86 03/13/23 11:06 Pulse Ox 95 03/13/23 11:06 O2 Del Method Room Air 03/13/23 11:06 O2 Flow Rate 1.5 03/09/23 21:46 03/12/23 03/13/23 03/13/23 22:59 06:59 14:59 Intake Total 240 / 960 0 / 960 Output Total 1500 / 2900 0 / 2900 1170 / 1170 Balance -1260 / -1940 0 / -1940 -1170 / -1170 Weight last 48 hrs Weight 117.197 kg Weight 119.295 kg Physical Exam 2 Const: COMMON NORMALS: no acute distress and patient oriented x3 Neck/C-Spine: COMMON NORMALS: no JVD Resp: COMMON NORMALS: normal respiratory effort, No retractions, No use of accessory muscles and clear to auscultation bilaterally AUSCULTATION: clear to auscultation bilaterally Cardio: COMMON NORMALS: no JVD, regular rate, regular rhythm, S1 normal heart sound present and S2 normal heart sound present RATE: regular rate RHYTHM: regular rhythm HEART SOUNDS: S1 normal heart sound present and S2 normal heart sound present GI: COMMON NORMALS: Normal to inspection, nondistended, normoactive bowel sounds present and non-tender Extremity: NARRATIVE EXTREMITY EXAM: 1+ pitting edema Neuro: COMMON NORMALS: patient oriented x3 Psych: COMMON NORMALS: mental status grossly normal Urinary Catheter Management: Sanches: Cath Placed During This Visit: yes Reason for Continuing Indwelling Catheter: Accurate Measurement of Urinary Output in Critically Ill Patients Urinary Catheter Date of Insertion: 03/10/23 Urinary Catheter Time of Insertion: 08:36 Data 03/13/23 03:54 03/13/23 03:54 A&P Assessment and plan (1) Atrial fibrillation with tachycardic ventricular rate: (2) CHF (congestive heart failure): (3) Peripheral edema: (4) Alzheimer disease: (5) Lewy body dementia: (6) Thyroid disorder: (7) Hypertension: Qualifiers: Hypertension type: primary hypertension Qualified Code(s): I10 - Essential (primary) hypertension (8) Type 2 diabetes mellitus: Qualifiers: 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 Cardizem as well Last Lasix 40 mg IV push today, with metolazone monitor urine output [id number] Cardiac echo CONCLUSIONS ?Technically difficult study, contrast was used to assess LV ?function. ?1.? Normal LV systolic function.? Estimated LVEF 65%. ?2.? Normal chamber sizes. ?3.? No significant valvular abnormality noted. ?4.? Normal right heart and pulmonary pressures. Switch from Lovenox, to Eliquis Full code Cardiac diet/consistent carb Sliding scale Continue levothyroxine Acute hypoxia related to CHF exacerbation, diuresis as above We will request overnight pulse oximeter to see if he would qualify for sleep study CT of the chest does show evidence of pneumonitis, possible pneumonia, remains afebrile, no significant leukocytosis we will start doxycycline Acute encephalopathy, does have underlying dementia, monitor mentation closely, CT of the head no acute findings, aspiration precautions, night stroke scale, neurochecks Plan for today, A-fib with RVR increase metoprolol to 50 twice daily, 1 dose of IV Lasix today, continue p.o. Cardizem negative 6 L today Attestations 2 Medical Necessity Statement*: Patient requires hospitalization for atrial fibrillation, systolic and diastolic CHF requiring diuresis, Diagnoses Atrial fibrillation with tachycardic ventricular rate I48.91 CHF (congestive heart failure) I50.9 Peripheral edema R60.0 Alzheimer disease G30.9; F02.80 Lewy body dementia G31.83; F02.80 Thyroid disorder E07.9 Primary hypertension I10 Hypertension type: primary hypertension Type 2 diabetes mellitus without complication, without long-term current use of insulin E11.9 Diabetes mellitus [facility] insulin use: without longshore equipment operator use Diabetes mellitus complication status: without complication Enlarged prostate N40.0 Hilar lymphadenopathy R59.0 Acute encephalopathy G93.40
[2023-03-13] MEDS: ipratropium-albuterol 3 mL Neb INHALATION (14:42)
[2023-03-13 16:27] LABS: Glucose Point of Care 221 mg/dL (70-110)
[2023-03-13] MEDS: dilTIAZem 60 mg Tablet 90 MG PO ×2 (17:13→21:27)
[2023-03-13] MEDS: tamsulosin 0.4 mg Capsule PO (21:28)
[2023-03-14] VITALS (15 sets, daily range): BP systolic 107–121; BP diastolic 59–88; PULSE 68–113; RESP 16–21; TEMP 36.3–36.9; O2SAT 92–95
[2023-03-14] MEDS: ipratropium-albuterol 3 mL Neb INHALATION ×2 (00:58→13:56)
[2023-03-14 04:46] LABS: Basophils % 0.5 %; Eosinophils # 0.2 10^3/uL (0.0-0.8); Eosinophils % 2.3 %; Hematocrit 39.7 % (37-53); Lymphocytes # 1.7 10^3/uL (0.8-4.8); Lymphocytes % 19.6 %; Mean Corpuscular Hemoglobin 31.4 pg (27-33); Mean Corpuscular Volume 95.2 fl (82-101); Mean Platelet Volume 10.6 fL (7.4-10.4); Monocytes # 0.9 10^3/uL (0.2-0.9); Monocytes % 10.2 %; Neutrophils # 5.61 10^3/uL (1.8-7.7); Neutrophils % 65.2 %; Nucleated Red Blood Cells % 0 %; Platelet Count 147 10^3/cmm (157-399); Red Blood Count 4.17 10^6/uL (3.85-5.65); Red Cell Distribution Width 12.7 % (12.1-15.1); White Blood Count 8.61 10^3/uL (3.29-11.43)
[2023-03-14] MEDS: dilTIAZem 60 mg Tablet 90 MG PO ×2 (04:49→15:18)
[2023-03-14 05:03] LABS: Alanine Aminotransferase 83 U/L (0-41); Albumin Level 3.3 g/dL (3.5-5.2); Alkaline Phosphatase 103 U/L (40-130); Aspartate Amino Transferase 74 U/L (0-40); Blood Urea Nitrogen 26 mg/dL (8-23); Calcium 9.2 mg/dL (8.5-10.5); Carbon Dioxide 27 mmol/L (22-29); Chloride 93 mmol/L (98-107); Globulin 3.3 g/dL (1.3-4.6); Glucose 169 mg/dL (65-115); Magnesium 1.7 mg/dL (1.7-2.3); Osmolality Calculated 281 mOsm/kg (285-295); Phosphorus 4.1 mg/dL (2.5-4.5); Sodium 131 mmol/L (136-145); Total Bilirubin 0.5 mg/dL (0.15-1.2); Total Protein 6.6 g/dL (6.6-8.7)
[2023-03-14 05:15] LABS: NT Pro B Type Natriuretic Pept 1457 pg/mL (0-450)
[2023-03-14 05:58] LABS: Glucose Point of Care 210 mg/dL (70-110)
[2023-03-14] MEDS: levothyroxine 137 mcg Tablet PO (06:44)
[2023-03-14] MEDS: potassium chloride ER 20 mEq Tablet 40 MEQ PO (06:44)
[2023-03-14] MEDS: FUROsemide 10 mg/mL SDV 4mL 40 MG IVP (06:45)
--- NOTE | 2023-03-14 09:35 | P.CONIM_ITS ---
Providers/Reason For Consult 2 Consulting Physician/Specialty*: Cardiology Reason for Consult*: Atrial fibrillation Heart failure with preserved LVEF Requesting Physician: Dr. Wilks Attending Physician: Phil Wilks MD Primary Care Provider: Sirena Wogn MD History of Present Illness History of Present Illness Adonis Means is a 82 year old male with a history of hypertension diabetes admitted with worsening shortness of air he was diagnosed with heart failure with preserved LV function as well as atrial fibrillation, likely new diagnosis. Since admission he has been diuresed and treated appropriately for rate control of atrial fibrillation. Currently he feels much better. Shortness of air has improved however he still has moderate pedal edema on both lower extremities. His atrial fibrillation rate now between 90-120 which is certainly better compared to on admission. He category currently denies any resting or exertional chest discomfort. His ambulatory status is low he uses a walker at home. Review of Systems 2 Narrative: Detailed 10 point systemic review unremarkable except for as mentioned above in the HPI. Medications/Allergies Home Medications Medication Instructions Recorded Confirmed Last Taken Type blood-glucose meter 10/20/21 03/10/23 Unknown History lancets (Comfort Lancets) 10/20/21 03/10/23 Unknown History blood sugar diagnostic (Accu-Chek #100 strips 12/21/21 03/10/23 Unknown Rx Angely Plus test strips) galantamine 4 mg tablet 4 mg PO BID 90 days #180 tabs 12/11/22 03/10/23 03/09/23 Rx levothyroxine 137 mcg tablet 137 mcg PO DAILY 90 days #90 tabs 01/22/23 03/10/23 03/08/23 Rx ipratropium 0.5 mg-albuterol 3 mg 3 ml inhalation Q6H PRN wheezing 03/04/23 03/10/23 Unknown Rx (2.5 mg base)/3 mL nebulization #90 mL soln finasteride 5 mg tablet 5 mg PO DAILY 30 days #90 tabs 03/08/23 03/10/23 03/08/23 Rx spironolactone 25 mg tablet 25 mg PO DAILY pulmonary 03/08/23 03/10/23 Unknown Rx hypertension and peripheral edema #30 tabs glimepiride 4 mg tablet 6 mg (1.5 x 4 mg) PO BID 90 days 03/09/23 03/10/23 03/09/23 Rx #270 tabs tamsulosin 0.4 mg capsule 0.4 mg PO QAM 03/10/23 03/10/23 03/09/23 History Allergies Allergy/AdvReac Type Severity Reaction Status Date / Time NSAIDS (Non-Steroidal Allergy ALGY-Anaphy Verified 03/08/23 10:30 Anti-Inflamma laxis Penicillins Allergy ALGY-Rash Verified 03/08/23 10:30 memantine AdvReac Mild drowsiness Verified 03/08/23 10:30 Current Medications Generic Name Dose Route Start Last Admin Trade Name Freq PRN Reason Stop Dose Admin Albuterol/Ipratropium 3 ml 03/09/23 23:00 03/14/23 00:58 Ipratropium-Albuterol 3 Ml Neb INHALATION 3 ml Q6H PRN Administration SHORTNESS OF BREATH Doxycycline Monohydrate 100 mg 03/11/23 09:00 03/13/23 17:13 Doxycycline 100 Mg Tablet PO 100 mg BID DIANA Administration Protocol Finasteride 5 mg 03/10/23 09:00 03/13/23 08:58 Finasteride 5 Mg Tablet PO 5 mg DAILY DIANA Administration Insulin Human Lispro 0 unit 03/10/23 08:00 03/13/23 17:13 Insulin Lispro 100 Unit/1 Ml SUBCUT 8 unit TIDWM DIANA Administration Protocol Levothyroxine Sodium 137 mcg 03/10/23 06:00 03/14/23 06:44 Levothyroxine 137 Mcg Tablet PO 137 mcg DAILY@0600 DIANA Administration Magnesium Lactate 84 mg 03/10/23 09:00 03/13/23 17:13 Magnesium Lactate 84 Mg Tablet PO 84 mg BID DIANA Administration Non-Formulary Medication 4 mg 03/10/23 09:00 03/13/23 18:44 Galantamine PO Not Given BID DIANA Nystatin 1 applic 03/12/23 18:00 03/13/23 18:44 Nystatin Powder 15 Gm Btl TOPICAL Not Given BID [facility] Tamsulosin HCl 0.4 mg 03/09/23 23:00 03/13/23 21:28 Tamsulosin 0.4 Mg Capsule PO 0.4 mg BEDTIME DIANA Administration PFSH Acute 2 PFSH: Medical History CHF (congestive heart failure) Peripheral edema Pulmonary hyperinflation Hilar lymphadenopathy Enlarged prostate Type 2 diabetes mellitus Hypertension Thyroid disorder Surgical History Hx of cataract extraction History of lumbar surgery Hx of surgical amputation of finger Family History Mother , in 70s Cancer Blood Father , at age 51 Accident at workplace Sister Dementia Denies family history of Diabetes Hyperlipidemia Chronic kidney disease (CKD) Bleeding disorder Hypertension Thyroid disease Stroke Social History Smoking and tobacco/nicotine status: never used tobacco/nicotine Alcohol intake: never Substance/Drug Use: never Lives independently: Yes Household members: spouse Marital status: Current occupational status: retired Vitals/I&O/Wt Last Vital Signs Temp 97.7 F 03/14/23 07:17 Pulse 113 H 03/14/23 07:17 Resp 20 H 03/14/23 07:17 BP 110/88 03/14/23 07:17 Pulse Ox 92 03/14/23 07:17 O2 Del Method Room Air 03/14/23 07:17 O2 Flow Rate 1.5 03/09/23 21:46 03/13/23 03/14/23 03/14/23 22:59 06:59 14:59 Intake Total 640 / 880 250 / 1130 Output Total 675 / 1845 600 / 2445 Balance -35 / -965 -350 / -1315 Weight last 48 hrs Weight 258 lb 6 oz Weight 263 lb Physical Exam 2 Narrative: Resting comfortably on the chair. Not in any respiratory distress. Vitals: Pulse irregularly irregular A-fib heart rate 80-110, blood pressure 110/74, O2 saturation 95% on room air There is no JVD HENMT unremarkable Eyes normal Lungs: Good air entry, very minimal fine Rales at the bases. Card examination: Irregularly irregular A-fib pulse normal first and second heart sounds. No added sounds. Abdomen soft nontender bowel sounds audible Lower extremities 1+ bilateral pedal edema. Skin warm and dry. Neuro grossly intact. Urinary Catheter Management: Sanches: Cath Placed During This Visit: yes Reason for Continuing Indwelling Catheter: Accurate Measurement of Urinary Output in Critically Ill Patients Urinary Catheter Date of Insertion: 03/10/23 Urinary Catheter Time of Insertion: 08:36 Data 03/14/23 03:50 03/14/23 03:50 A&P Assessment and plan (1) Atrial fibrillation with tachycardic ventricular rate: (2) CHF (congestive heart failure): Plan 87-year-old male patient with shortness of air due to 1. Atrial fibrillation with rapid ventricular rate, new diagnosis of A-fib however it appears that he has been having A-fib rhythm for a while at home 2. Heart failure with moderate volume overload in the setting of preserved LV systolic function. 3. A-fib rate now moderately controlled. He still have mild to moderate volume overload Recommendation: 1. Regular diuretics, furosemide 40 mg once a day 2. I agree with increasing the dose of metoprolol to 75 mg twice daily today I recommend to increase the dose even further to 100 mg twice a day from tomorrow and reduce the dose of the Cardizem to 30 mg twice a day if needed. Plan is to increase the dose of metoprolol and to reduce Cardizem as minimum possible. 3. Reduce the dose of apixaban to 2.5 mg twice a day Thanks for asked me to see this patient consultation. Coding Level of Care Code Acute Code for [facility] Fwd Diagnoses Atrial fibrillation with tachycardic ventricular rate I48.91 CHF (congestive heart failure) I50.9
[2023-03-14] MEDS: doxycycline 100 mg Tablet PO ×2 (10:16→18:35)
[2023-03-14] MEDS: finasteride 5 mg Tablet PO (10:17)
[2023-03-14] MEDS: apixaban 5 mg Tablet 2.5 MG PO ×2 (10:17→20:10)
[2023-03-14] MEDS: magnesium lactate 84 mg Tablet PO ×2 (10:17→18:35)
[2023-03-14] MEDS: metoprolol tartrate 25 mg Tablet 75 MG PO ×2 (10:18→20:09)
[2023-03-14] MEDS: insulin lispro 100 unit/1 mL SUBCUT ×3 (10:19→18:36)
[2023-03-14] MEDS: nystatin powder 15 gm Btl 1 APPLIC TOPICAL (10:20)
[2023-03-14 11:54] LABS: Glucose Point of Care 237 mg/dL (70-110)
[2023-03-14 17:12] LABS: Glucose Point of Care 233 mg/dL (70-110)
--- NOTE | 2023-03-14 17:30 | PM.PN ---
Subjective Subjective: Patient was seen this morning, continues to complain of shortness of breath, heart rates are in the 120s, A-fib RVR, we discussed titration of blood pressure medications, patient's family would like cardiology to be consulted, will consult cardiology Vitals/I&O/Wt Last Vital Signs Temp 97.8 F 03/14/23 16:00 Pulse 98 03/14/23 16:00 Resp 21 H 03/14/23 16:00 BP 121/59 03/14/23 16:00 Pulse Ox 93 03/14/23 16:00 O2 Del Method Room Air 03/14/23 16:00 O2 Flow Rate 1.5 03/09/23 21:46 03/14/23 03/14/23 03/14/23 06:59 14:59 22:59 Intake Total 250 / 1130 360 / 360 Output Total 600 / 2445 Balance -350 / -1315 360 / 360 Weight last 48 hrs Weight 117.197 kg Weight 119.295 kg Physical Exam Const: COMMON NORMALS: no acute distress ORIENTATION/CONSCIOUSNESS: Yes awake, Yes oriented to person and Yes oriented to place; not oriented to time Resp: COMMON NORMALS: normal respiratory effort, No retractions, No use of accessory muscles and clear to auscultation bilaterally AUSCULTATION: clear to auscultation bilaterally Cardio: COMMON NORMALS: regular rate, regular rhythm, S1 normal heart sound present and S2 normal heart sound present RATE: regular rate RHYTHM: regular rhythm HEART SOUNDS: S1 normal heart sound present and S2 normal heart sound present GI: COMMON NORMALS: Normal to inspection, nondistended, normoactive bowel sounds present and non-tender Extremity: COMMON NORMALS: no pedal edema Neuro: SENSORIUM/ORIENTATION: Yes oriented to person, Yes oriented to place and No oriented to time Urinary Catheter Management: Sanches: Cath Placed During This Visit: yes Reason for Continuing Indwelling Catheter: Accurate Measurement of Urinary Output in Critically Ill Patients Urinary Catheter Date of Insertion: 03/10/23 Urinary Catheter Time of Insertion: 08:36 Data 03/14/23 03:50 03/14/23 03:50 A&P Assessment and plan (1) Atrial fibrillation with tachycardic ventricular rate: (2) CHF (congestive heart failure): (3) Peripheral edema: (4) Alzheimer disease: (5) Lewy body dementia: (6) Thyroid disorder: (7) Hypertension: Qualifiers: Hypertension type: primary hypertension Qualified Code(s): I10 - Essential (primary) hypertension (8) Type 2 diabetes mellitus: Qualifiers: Diabetes mellitus skilled nursing insulin use: without skilled nursing use Diabetes mellitus complication status: without complication Qualified Code(s): E11.9 - Type 2 diabetes mellitus without complications (9) Enlarged prostate: (10) Hilar lymphadenopathy: (11) Acute encephalopathy: Plan New onset CHF, New onset A-fib with RVR No previous history of CHF or A-fib Likely etiology is tachyarrhythmia Keep potassium above 4 and magnesium above 2 Add p.o. Cardizem as well Last Lasix 40 mg IV push today, with metolazone monitor urine output [id number] Cardiac echo CONCLUSIONS ?Technically difficult study, contrast was used to assess LV ?function. ?1.? Normal LV systolic function.? Estimated LVEF 65%. ?2.? Normal chamber sizes. ?3.? No significant valvular abnormality noted. ?4.? Normal right heart and pulmonary pressures. Switch from Lovenox, to Eliquis Full code Cardiac diet/consistent carb Sliding scale Continue levothyroxine Acute hypoxia related to CHF exacerbation, diuresis as above CT of the chest does show evidence of pneumonitis, possible pneumonia, remains afebrile, no significant leukocytosis we will continue doxycycline Acute encephalopathy, does have underlying dementia, monitor mentation closely, CT of the head no acute findings, aspiration precautions, , neurochecks Plan for today, A-fib with RVR increase metoprolol to 75 twice daily, 1 dose of IV Lasix today, continue p.o. Cardizem negative 6 L today Attestations Medical Necessity Statement*: Patient requires hospitalization for nurse shortness of breath secondary to CHF, A-fib with RVR Diagnoses Atrial fibrillation with tachycardic ventricular rate I48.91 CHF (congestive heart failure) I50.9 Peripheral edema R60.0 Alzheimer disease G30.9; F02.80 Lewy body dementia G31.83; F02.80 Thyroid disorder E07.9 Primary hypertension I10 Hypertension type: primary hypertension Type 2 diabetes mellitus without complication, without long-term current use of insulin E11.9 Diabetes mellitus supervisor intermediates insulin use: without skilled nursing use Diabetes mellitus complication status: without complication Enlarged prostate N40.0 Hilar lymphadenopathy R59.0 Acute encephalopathy G93.40
[2023-03-14] MEDS: tamsulosin 0.4 mg Capsule PO (20:09)
[2023-03-15] VITALS (12 sets, daily range): BP systolic 103–134; BP diastolic 80–87; PULSE 71–112; RESP 16–32; TEMP 35.9–36.8; O2SAT 92–95
[2023-03-15 04:47] LABS: Basophils # 0.1 10^3/uL (0.0-0.1); Basophils % 0.6 %; Eosinophils # 0.3 10^3/uL (0.0-0.8); Eosinophils % 3.4 %; Hematocrit 41.1 % (37-53); Lymphocytes % 21.1 %; Mean Corpuscular HGB Conc 32.6 g/dL (30-55); Mean Corpuscular Hemoglobin 31.6 pg (27-33); Mean Corpuscular Volume 96.9 fl (82-101); Mean Platelet Volume 10.2 fL (7.4-10.4); Monocytes % 10.7 %; Neutrophils # 5.89 10^3/uL (1.8-7.7); Neutrophils % 61.7 %; Nucleated Red Blood Cells % 0 %; Platelet Count 152 10^3/cmm (157-399); Red Blood Count 4.24 10^6/uL (3.85-5.65); Red Cell Distribution Width 12.7 % (12.1-15.1); White Blood Count 9.54 10^3/uL (3.29-11.43)
[2023-03-15 05:13] LABS: Alanine Aminotransferase 76 U/L (0-41); Albumin Level 3.2 g/dL (3.5-5.2); Alkaline Phosphatase 112 U/L (40-130); Aspartate Amino Transferase 66 U/L (0-40); Blood Urea Nitrogen 31 mg/dL (8-23); Calcium 9.6 mg/dL (8.5-10.5); Carbon Dioxide 28 mmol/L (22-29); Chloride 91 mmol/L (98-107); Globulin 3.4 g/dL (1.3-4.6); Glucose 153 mg/dL (65-115); Magnesium 1.7 mg/dL (1.7-2.3); Osmolality Calculated 278 mOsm/kg (285-295); Phosphorus 4.1 mg/dL (2.5-4.5); Sodium 129 mmol/L (136-145); Total Bilirubin 0.4 mg/dL (0.15-1.2); Total Protein 6.6 g/dL (6.6-8.7)
[2023-03-15 05:24] LABS: NT Pro B Type Natriuretic Pept 1532 pg/mL (0-450)
[2023-03-15] MEDS: dilTIAZem 60 mg Tablet 90 MG PO (05:50)
[2023-03-15] MEDS: levothyroxine 137 mcg Tablet PO (05:50)
--- NOTE | 2023-03-15 05:54 | PC.NURSE ---
Patient refuses to replace telemetry this morning stating Just send me home . Patient's HR mostly controlled 80 to 90s through the night with exception of low 100s with exertion. Spouse at bedside reminding of need for home health with PT/OT and nurse services if possible.
--- NOTE | 2023-03-15 07:00 | XRR_ITS ---
PROCEDURE INFORMATION: Exam: XR Chest Exam date and time: 03/15/2023 8:12 AM Age: 82 years old Clinical indication: Shortness of breath; Additional info: SOB TECHNIQUE: Imaging protocol: Radiologic exam of the chest. Views: 1 view. COMPARISON: CT chest [facility] [id number] 03/10/2023 2:03 PM FINDINGS: Lungs: Modest hazy infrahilar lung opacities in both lung bases. Mild reticular changes of the interstitium. Pleural spaces: Small volume pleural effusions. Heart/Mediastinum: Unremarkable. No cardiomegaly. Bones/joints: Unremarkable. XR/XR chest 1V portable [id number] IMPRESSION: 1. Intrathoracic fluid overload consisting of bilateral pleural effusions consistent with the recent CT scan comparison. 2. Hazy lower lung opacities are nonspecific; bibasilar atelectasis favored. Cannot exclude mild dependent pulmonary edema.
[2023-03-15] MEDS: finasteride 5 mg Tablet PO (08:02)
[2023-03-15] MEDS: doxycycline 100 mg Tablet PO ×2 (08:02→18:11)
[2023-03-15] MEDS: metoprolol tartrate 25 mg Tablet 75 MG PO (08:02)
[2023-03-15] MEDS: magnesium lactate 84 mg Tablet PO ×2 (08:02→18:11)
[2023-03-15] MEDS: apixaban 5 mg Tablet 2.5 MG PO ×2 (08:03→20:01)
[2023-03-15] MEDS: insulin lispro 100 unit/1 mL SUBCUT ×3 (08:03→18:11)
[2023-03-15] MEDS: nystatin powder 15 gm Btl 1 APPLIC TOPICAL (08:04)
[2023-03-15 08:31] LABS: Glucose Point of Care 159 mg/dL (70-110)
[2023-03-15 08:31] LABS: Glucose Point of Care 170 mg/dL (70-110)
[2023-03-15 08:31] LABS: Glucose Point of Care 155 mg/dL (70-110)
[2023-03-15 10:58] LABS: Glucose Point of Care 224 mg/dL (70-110)
[2023-03-15 17:32] LABS: Glucose Point of Care 209 mg/dL (70-110)
--- NOTE | 2023-03-15 17:41 | P.PN_ITS ---
Subjective 2 Subjective: Patient was seen this morning, he does report shortness of breath with exertion, does report a bit lightheadedness, we discussed our consultation with cardiology, plans on optimizing beta-palmira going up on the dose of metoprolol if he does not have side effects, I am worried that he might feel more lightheaded and dizzy with increased doses of metoprolol, so the plan is to come off the Cardizem, he is agreeable, is at bedside, sodium 129 creatinine 1.3 we will hold off on Lasix therapy for today Vitals/I&O/Wt Last Vital Signs Temp 97.6 F 03/15/23 16:40 Pulse 111 H 03/15/23 16:40 Resp 20 H 03/15/23 16:40 BP 103/85 03/15/23 16:40 Pulse Ox 94 03/15/23 16:40 O2 Del Method Room Air 03/15/23 16:40 O2 Flow Rate 1.5 03/09/23 21:46 03/15/23 03/15/23 03/15/23 06:59 14:59 22:59 Intake Total 1600 / 1960 720 / 720 Output Total 1000 / 1120 900 / 900 Balance 600 / 840 -180 / -180 Weight last 48 hrs Weight 113.58 kg Physical Exam 2 Const: COMMON NORMALS: no acute distress and patient oriented x3 Resp: COMMON NORMALS: normal respiratory effort, No retractions, No use of accessory muscles and clear to auscultation bilaterally AUSCULTATION: clear to auscultation bilaterally Cardio: COMMON NORMALS: S1 normal heart sound present and S2 normal heart sound present RATE: tachycardic RHYTHM: abnormal rhythm HEART SOUNDS: S 1 normal heart sound present and S2 normal heart sound present GI: COMMON NORMALS: Normal to inspection, nondistended, normoactive bowel sounds present and non-tender Extremity: COMMON NORMALS: no pedal edema Neuro: COMMON NORMALS: patient oriented x3 Psych: COMMON NORMALS: mental status grossly normal Urinary Catheter Management: Sanches: Cath Placed During This Visit: yes, but has since been removed by the nurse Reason for Continuing Indwelling Catheter: Decision to DC Catheter Urinary Catheter Date of Insertion: 03/10/23 Urinary Catheter Time of Insertion: 08:36 Date Urinary Catheter Removed: 03/14/23 Time Urinary Catheter Discontinued: 07:00 Data 03/15/23 04:28 03/15/23 04:28 A&P Assessment and plan (1) Atrial fibrillation with tachycardic ventricular rate: (2) CHF (congestive heart failure): (3) Peripheral edema: (4) Alzheimer disease: (5) Lewy body dementia: (6) Thyroid disorder: (7) Hypertension: Qualifiers: Hypertension type: primary hypertension Qualified Code(s): I10 - Essential (primary) hypertension (8) Type 2 diabetes mellitus: Qualifiers: Diabetes mellitus extermination inspector insulin use: without extermination inspector use Diabetes mellitus complication status: without complication Qualified Code(s): E11.9 - Type 2 diabetes mellitus without complications (9) Enlarged prostate: (10) Hilar lymphadenopathy: (11) Acute encephalopathy: Plan New onset CHF, New onset A-fib with RVR No previous history of CHF or A-fib Likely etiology is tachyarrhythmia Keep potassium above 4 and magnesium above 2 Cardizem, wean off by this evening, increase metoprolol to 100 twice daily if his heart rate and blood pressure can tolerate, monitor for lightheadedness and dizziness -5L, hold lasix [id number] Cardiac echo CONCLUSIONS ?Technically difficult study, contrast was used to assess LV ?function. ?1.? Normal LV systolic function.? Estimated LVEF 65%. ?2.? Normal chamber sizes. ?3.? No significant valvular abnormality noted. ?4.? Normal right heart and pulmonary pressures. Switch from Lovenox, to Eliquis Full code Cardiac diet/consistent carb Sliding scale Continue levothyroxine Acute hypoxia related to CHF exacerbation, diuresis as above CT of the chest does show evidence of pneumonitis, possible pneumonia, remains afebrile, no significant leukocytosis we will continue doxycycline Acute encephalopathy, does have underlying dementia, monitor mentation closely, CT of the head no acute findings, aspiration precautions, , neurochecks Plan for today, increase dose of metoprolol, off Cardizem, hold off on Lasix therapy given hyponatremia, and KANWAL Attestations 2 Medical Necessity Statement*: Patient requires hospitalization for A-fib with RVR, CHF Diagnoses Atrial fibrillation with tachycardic ventricular rate I48.91 CHF (congestive heart failure) I50.9 Peripheral edema R60.0 Alzheimer disease G30.9; F02.80 Lewy body dementia G31.83; F02.80 Thyroid disorder E07.9 Primary hypertension I10 Hypertension type: primary hypertension Type 2 diabetes mellitus without complication, without long-term current use of insulin E11.9 Diabetes mellitus group home insulin use: without extermination inspector use Diabetes mellitus complication status: without complication Enlarged prostate N40.0 Hilar lymphadenopathy R59.0 Acute encephalopathy G93.40
[2023-03-15] MEDS: metoprolol tartrate 50 mg Tablet 100 MG PO (20:01)
[2023-03-15] MEDS: tamsulosin 0.4 mg Capsule PO (20:02)
[2023-03-15 21:41] LABS: Glucose Point of Care 189 mg/dL (70-110)
[2023-03-16] VITALS (11 sets, daily range): BP systolic 98–109; BP diastolic 72–88; PULSE 85–121; RESP 16–24; TEMP 36.2–36.9; O2SAT 94–96
[2023-03-16 03:53] LABS: Basophils # 0.1 10^3/uL (0.0-0.1); Basophils % 0.6 %; Eosinophils # 0.3 10^3/uL (0.0-0.8); Eosinophils % 3.3 %; Hematocrit 41.8 % (37-53); Lymphocytes % 22.7 %; Mean Corpuscular HGB Conc 33.7 g/dL (30-55); Mean Corpuscular Hemoglobin 32.1 pg (27-33); Mean Corpuscular Volume 95.2 fl (82-101); Mean Platelet Volume 10.3 fL (7.4-10.4); Neutrophils # 5.26 10^3/uL (1.8-7.7); Neutrophils % 60.7 %; Nucleated Red Blood Cells % 0 %; Platelet Count 154 10^3/cmm (157-399); Red Blood Count 4.39 10^6/uL (3.85-5.65); Red Cell Distribution Width 12.6 % (12.1-15.1); White Blood Count 8.67 10^3/uL (3.29-11.43)
[2023-03-16 04:26] LABS: Alanine Aminotransferase 77 U/L (0-41); Albumin Level 3.5 g/dL (3.5-5.2); Alkaline Phosphatase 106 U/L (40-130); Anion Gap 15.4 (5-19); Aspartate Amino Transferase 87 U/L (0-40); Blood Urea Nitrogen 27 mg/dL (8-23); Calcium 9.6 mg/dL (8.5-10.5); Carbon Dioxide 28 mmol/L (22-29); Chloride 96 mmol/L (98-107); Creatinine Clr Calc Pharmacy 57.0475; Glucose 141 mg/dL (65-115); Magnesium 1.6 mg/dL (1.7-2.3); Osmolality Calculated 287 mOsm/kg (285-295); Potassium 4.4 mmol/L (3.5-5.1); Sodium 135 mmol/L (136-145); Total Bilirubin 0.4 mg/dL (0.15-1.2); Total Protein 6.5 g/dL (6.6-8.7)
[2023-03-16 04:29] LABS: NT Pro B Type Natriuretic Pept 2109 pg/mL (0-450)
[2023-03-16] MEDS: levothyroxine 137 mcg Tablet PO (05:18)
[2023-03-16 06:38] LABS: Glucose Point of Care 151 mg/dL (70-110)
[2023-03-16] MEDS: insulin lispro 100 unit/1 mL SUBCUT ×3 (08:11→17:34)
[2023-03-16] MEDS: metoprolol tartrate 50 mg Tablet 100 MG PO ×2 (08:12→20:06)
[2023-03-16] MEDS: finasteride 5 mg Tablet PO (08:12)
[2023-03-16] MEDS: apixaban 5 mg Tablet 2.5 MG PO ×2 (08:12→20:06)
[2023-03-16] MEDS: doxycycline 100 mg Tablet PO ×2 (08:12→17:35)
[2023-03-16] MEDS: magnesium lactate 84 mg Tablet PO ×2 (08:13→17:35)
[2023-03-16] MEDS: FUROsemide 40 mg Tablet PO (10:05)
--- NOTE | 2023-03-16 10:31 | PC.NURSE ---
Patient walked in the hallway approximately chcf to nurses' station, or about 90 feet for a total of 180 feet back and forth and heart rate never got above 108. Patient did get tired and needed a wheelchair about [address] Patent currently in room sitting in chair. Heart rate is 97.
[2023-03-16 12:34] LABS: Glucose Point of Care 176 mg/dL (70-110)
--- NOTE | 2023-03-16 13:40 | P.PN_ITS ---
Subjective 2 Subjective: Patient was seen this morning, is at bedside, he reports that he is doing better continues to have episodes of shortness of breath, no lightheadedness, dizziness, no nausea, no vomiting, heart rates are in the 110s, A-fib, discussed increasing his dose of metoprolol to 100 twice daily will continue to monitor him, if he continues to have A-fib heart rates higher than 120 will consider adding on Cardizem but I would hold off as he is on a high dose of metoprolol Vitals/I&O/Wt Last Vital Signs Temp 98.0 F 03/16/23 11:34 Pulse 95 03/16/23 11:34 Resp 16 03/16/23 11:34 BP 104/73 03/16/23 11:34 Pulse Ox 95 03/16/23 11:34 O2 Del Method Room Air 03/16/23 11:34 O2 Flow Rate 1.5 03/09/23 21:46 03/15/23 03/16/23 03/16/23 22:59 06:59 14:59 Intake Total 600 / 1320 600 / 1920 240 / 240 Output Total 200 / 1100 Balance 600 / 420 400 / 820 240 / 240 Weight last 48 hrs Weight 111.901 kg Weight 113.58 kg Physical Exam 2 Const: COMMON NORMALS: no acute distress ORIENTATION/CONSCIOUSNESS: Yes awake, Yes oriented to person and Yes oriented to place; not oriented to time Resp: COMMON NORMALS: normal respiratory effort, No retractions, No use of accessory muscles and clear to auscultation bilaterally AUSCULTATION: clear to auscultation bilaterally Cardio: COMMON NORMALS: S1 normal heart sound present and S2 normal heart sound present RATE: tachycardic RHYTHM: abnormal rhythm HEART SOUNDS: S 1 normal heart sound present and S2 normal heart sound present GI: COMMON NORMALS: Normal to inspection, nondistended, normoactive bowel sounds present and non-tender Extremity: COMMON NORMALS: no pedal edema Neuro: SENSORIUM/ORIENTATION: Yes oriented to person, Yes oriented to place and No oriented to time Psych: COMMON NORMALS: mental status grossly normal Urinary Catheter Management: Sanches: Cath Placed During This Visit: yes, but has since been removed by the nurse Reason for Continuing Indwelling Catheter: Decision to DC Catheter Urinary Catheter Date of Insertion: 03/10/23 Urinary Catheter Time of Insertion: 08:36 Date Urinary Catheter Removed: 03/14/23 Time Urinary Catheter Discontinued: 07:00 Data 03/16/23 03:31 03/16/23 03:31 A&P Assessment and plan (1) Atrial fibrillation with tachycardic ventricular rate: (2) CHF (congestive heart failure): (3) Peripheral edema: (4) Alzheimer disease: (5) Lewy body dementia: (6) Thyroid disorder: (7) Hypertension: Qualifiers: Hypertension type: primary hypertension Qualified Code(s): I10 - Essential (primary) hypertension (8) Type 2 diabetes mellitus: Qualifiers: Diabetes mellitus rat exterminator insulin use: without rat exterminator use Diabetes mellitus complication status: without complication Qualified Code(s): E11.9 - Type 2 diabetes mellitus without complications (9) Enlarged prostate: (10) Hilar lymphadenopathy: (11) Acute encephalopathy: Plan New onset CHF, New onset A-fib with RVR No previous history of CHF or A-fib Likely etiology is tachyarrhythmia Keep potassium above 4 and magnesium above 2 Cardizem, wean off by this evening, increase metoprolol to 100 twice daily if his heart rate and blood pressure can tolerate, monitor for lightheadedness and dizziness -5L, does have nonpitting edema today, 1 dose p.o. Lasix [id number] 4 Cardiac echo CONCLUSIONS ?Technically difficult study, contrast was used to assess LV ?function. ?1.? Normal LV systolic function.? Estimated LVEF 65%. ?2.? Normal chamber sizes. ?3.? No significant valvular abnormality noted. ?4.? Normal right heart and pulmonary pressures. Switch from Lovenox, to Eliquis Full code Cardiac diet/consistent carb Sliding scale Continue levothyroxine Acute hypoxia related to CHF exacerbation, diuresis as above CT of the chest does show evidence of pneumonitis, possible pneumonia, remains afebrile, no significant leukocytosis we will continue doxycycline Acute encephalopathy, does have underlying dementia, monitor mentation closely, CT of the head no acute findings, aspiration precautions, , neurochecks Plan for today, 1 dose p.o. Lasix, continue Metroprolol 100 twice daily, monitor as inpatient remains in A-fib with RVR with heart rates as high as the 110s Attestations 2 Medical Necessity Statement*: Patient requires hospitalization for A-fib with RVR, requiring diuresis Diagnoses Atrial fibrillation with tachycardic ventricular rate I48.91 CHF (congestive heart failure) I50.9 Peripheral edema R60.0 Alzheimer disease G30.9; F02.80 Lewy body dementia G31.83; F02.80 Thyroid disorder E07.9 Primary hypertension I10 Hypertension type: primary hypertension Type 2 diabetes mellitus without complication, without long-term current use of insulin E11.9 Diabetes mellitus senior living insulin use: without rat exterminator use Diabetes mellitus complication status: without complication Enlarged prostate N40.0 Hilar lymphadenopathy R59.0 Acute encephalopathy G93.40
[2023-03-16 17:01] LABS: Glucose Point of Care 189 mg/dL (70-110)
--- NOTE | 2023-03-16 18:49 | PC.NURSE ---
Patient was asked if he could have a canales put back in and nurse educated patient on infection risk and about how we typically don't place them if patient can ambulate to the restroom or use a urinal. Patient verbalized understanding.
[2023-03-16] MEDS: tamsulosin 0.4 mg Capsule PO (20:06)
[2023-03-16 21:08] LABS: Glucose Point of Care 129 mg/dL (70-110)
[2023-03-17] VITALS (10 sets, daily range): BP systolic 99–118; BP diastolic 72–90; PULSE 67–111; RESP 14–27; TEMP 36.6–36.9; O2SAT 92–95
[2023-03-17 01:41] LABS: Basophils # 0.1 10^3/uL (0.0-0.1); Basophils % 0.5 %; Eosinophils # 0.3 10^3/uL (0.0-0.8); Eosinophils % 2.7 %; Hematocrit 43.8 % (37-53); Lymphocytes # 2.2 10^3/uL (0.8-4.8); Lymphocytes % 23.2 %; Mean Corpuscular HGB Conc 33.3 g/dL (30-55); Mean Corpuscular Hemoglobin 31.6 pg (27-33); Mean Corpuscular Volume 94.8 fl (82-101); Mean Platelet Volume 9.8 fL (7.4-10.4); Monocytes % 10.4 %; Neutrophils # 5.67 10^3/uL (1.8-7.7); Neutrophils % 61.4 %; Nucleated Red Blood Cells % 0 %; Platelet Count 156 10^3/cmm (157-399); Red Blood Count 4.62 10^6/uL (3.85-5.65); Red Cell Distribution Width 12.6 % (12.1-15.1); White Blood Count 9.25 10^3/uL (3.29-11.43)
[2023-03-17 02:10] LABS: Alanine Aminotransferase 91 U/L (0-41); Albumin Level 3.6 g/dL (3.5-5.2); Alkaline Phosphatase 109 U/L (40-130); Anion Gap 14.1 (5-19); Aspartate Amino Transferase 109 U/L (0-40); Blood Urea Nitrogen 30 mg/dL (8-23); Calcium 10.1 mg/dL (8.5-10.5); Carbon Dioxide 30 mmol/L (22-29); Chloride 94 mmol/L (98-107); Globulin 3.6 g/dL (1.3-4.6); Glucose 137 mg/dL (65-115); Magnesium 1.7 mg/dL (1.7-2.3); Osmolality Calculated 286 mOsm/kg (285-295); Phosphorus 4.1 mg/dL (2.5-4.5); Potassium 4.1 mmol/L (3.5-5.1); Sodium 134 mmol/L (136-145); Total Bilirubin 0.5 mg/dL (0.15-1.2); Total Protein 7.2 g/dL (6.6-8.7)
[2023-03-17 02:11] LABS: NT Pro B Type Natriuretic Pept 2881 pg/mL (0-450)
[2023-03-17] MEDS: levothyroxine 137 mcg Tablet PO (06:23)
[2023-03-17 06:36] LABS: Glucose Point of Care 141 mg/dL (70-110)
[2023-03-17] MEDS: FUROsemide 40 mg Tablet PO ×2 (07:31→16:45)
[2023-03-17] MEDS: insulin lispro 100 unit/1 mL SUBCUT ×3 (07:31→16:45)
[2023-03-17] MEDS: finasteride 5 mg Tablet PO (08:23)
[2023-03-17] MEDS: metoprolol tartrate 50 mg Tablet 100 MG PO ×2 (08:23→20:17)
[2023-03-17] MEDS: doxycycline 100 mg Tablet PO ×2 (08:23→17:08)
[2023-03-17] MEDS: magnesium lactate 84 mg Tablet PO ×2 (08:23→17:08)
[2023-03-17] MEDS: apixaban 5 mg Tablet 2.5 MG PO ×2 (08:24→20:17)
[2023-03-17] MEDS: nystatin powder 15 gm Btl 1 APPLIC TOPICAL (08:24)
[2023-03-17] MEDS: amiodarone 200 mg Tablet 400 MG PO (09:04)
[2023-03-17 12:22] LABS: Glucose Point of Care 192 mg/dL (70-110)
--- NOTE | 2023-03-17 14:00 | PM.PN ---
Subjective Subjective: Patient was seen this morning, he has intermittent shortness of breath, intermittent episodes of A-fib with RVR, we discussed adding on amiodarone, had extensive family meeting with patient, his daughter is at bedside, discussed patient's hospitalization his fluid overload, his diuresis, he is difficult to control atrial fibrillation, starting off with Cardizem then weaning off Cardizem to p.o. metoprolol titrating his p.o. metoprolol to maximum dose, monitoring for lightheadedness dizziness monitoring his heart rate monitoring his shortness of breath, now due to persistent with episodes of A-fib with exertion heart rates into the high 120s, will add on amiodarone monitor his liver function and thyroid function, discussed risk of benefits, they voiced understanding, all questions answered, they were a bit upset as cardiology has not seen him over the last few days, I apologize as we had a couple of machine adjuster helper cover over the weekend, hopefully will get him a an appointment with cardiology in the next week or so, a machine adjuster helper of their choosing, one that works here locally in town, or again one of their choosing, family is concerned about him urinating too much, urinating throughout the night, Vitals/I&O/Wt Last Vital Signs Temp 97.9 F 03/17/23 07:27 Pulse 95 03/17/23 11:27 Resp 27 H 03/17/23 11:27 BP 114/72 03/17/23 11:27 Pulse Ox 95 03/17/23 11:27 O2 Del Method Room Air 03/17/23 11:27 O2 Flow Rate 1.5 03/09/23 21:46 03/16/23 03/17/23 03/17/23 22:59 06:59 14:59 Intake Total 840 / 1320 1000 / 2320 600 / 600 Output Total 400 / 400 Balance 840 / 1320 600 / 1920 600 / 600 Weight last 48 hrs Weight 108.363 kg Weight 111.901 kg Physical Exam Const: COMMON NORMALS: no acute distress and patient oriented x3 Resp: COMMON NORMALS: normal respiratory effort, No retractions, No use of accessory muscles and clear to auscultation bilaterally AUSCULTATION: clear to auscultation bilaterally Cardio: COMMON NORMALS: S1 normal heart sound present and S2 normal heart sound present RATE: tachycardic RHYTHM: abnormal rhythm irregularly irregular HEART SOUNDS: S1 normal heart sound present and S2 normal heart sound present GI: COMMON NORMALS: Normal to inspection, nondistended, normoactive bowel sounds present and non-tender Extremity: COMMON NORMALS: no pedal edema Neuro: COMMON NORMALS: patient oriented x3 Psych: COMMON NORMALS: mental status grossly normal Urinary Catheter Management: Sanches: Cath Placed During This Visit: yes, but has since been removed by the nurse Reason for Continuing Indwelling Catheter: Decision to DC Catheter Urinary Catheter Date of Insertion: 03/10/23 Urinary Catheter Time of Insertion: 08:36 Date Urinary Catheter Removed: 03/14/23 Time Urinary Catheter Discontinued: 07:00 Data 03/17/23 01:30 03/17/23 01:30 A&P Assessment and plan (1) Atrial fibrillation with tachycardic ventricular rate: (2) CHF (congestive heart failure): (3) Peripheral edema: (4) Alzheimer disease: (5) Lewy body dementia: (6) Thyroid disorder: (7) Hypertension: Qualifiers: Hypertension type: primary hypertension Qualified Code(s): I10 - Essential (primary) hypertension (8) Type 2 diabetes mellitus: Qualifiers: Diabetes mellitus ocean transportation intermediary insulin use: without ocean transportation intermediary use Diabetes mellitus complication status: without complication Qualified Code(s): E11.9 - Type 2 diabetes mellitus without complications (9) Enlarged prostate: (10) Hilar lymphadenopathy: (11) Acute encephalopathy: Plan New onset CHF, New onset A-fib with RVR No previous history of CHF or A-fib Likely etiology is tachyarrhythmia Keep potassium above 4 and magnesium above 2 Cardizem, wean off by this evening, increase metoprolol to 100 twice daily if his heart rate and blood pressure can tolerate, monitor for lightheadedness and dizziness -5L, does have nonpitting edema today, 1 dose p.o. Lasix [id number] Cardiac echo CONCLUSIONS ?Technically difficult study, contrast was used to assess LV ?function. ?1.? Normal LV systolic function.? Estimated LVEF 65%. ?2.? Normal chamber sizes. ?3.? No significant valvular abnormality noted. ?4.? Normal right heart and pulmonary pressures. Switch from Lovenox, to Eliquis Full code Cardiac diet/consistent carb Sliding scale Continue levothyroxine Acute hypoxia related to CHF exacerbation, diuresis as above CT of the chest does show evidence of pneumonitis, possible pneumonia, remains afebrile, no significant leukocytosis we will continue doxycycline Acute encephalopathy, does have underlying dementia, monitor mentation closely, CT of the head no acute findings, aspiration precautions, , neurochecks Plan for today, 1 dose p.o. Lasix, continue Metroprolol 100 twice daily, add on amiodarone Attestations Medical Necessity Statement*: Patient requires hospitalization for new onset CHF, A-fib with RVR, difficult to control heart rate Diagnoses Atrial fibrillation with tachycardic ventricular rate I48.91 CHF (congestive heart failure) I50.9 Peripheral edema R60.0 Alzheimer disease G30.9; F02.80 Lewy body dementia G31.83; F02.80 Thyroid disorder E07.9 Primary hypertension I10 Hypertension type: primary hypertension Type 2 diabetes mellitus without complication, without long-term current use of insulin E11.9 Diabetes mellitus ocean transportation intermediary insulin use: without alf use Diabetes mellitus complication status: without complication Enlarged prostate N40.0 Hilar lymphadenopathy R59.0 Acute encephalopathy G93.40
[2023-03-17 17:05] LABS: Glucose Point of Care 223 mg/dL (70-110)
[2023-03-17] MEDS: amiodarone 200 mg Tablet PO (17:08)
--- NOTE | 2023-03-17 17:40 | P.PN_ITS ---
Subjective 2 Subjective: pt is doing well with no chest pain or sob. hr 90s afib. higher with activities Vitals/I&O/Wt Last Vital Signs Temp 98.5 F 03/17/23 15:52 Pulse 95 03/17/23 15:52 Resp 22 H 03/17/23 15:52 BP 115/90 03/17/23 15:52 Pulse Ox 92 03/17/23 15:52 O2 Del Method Room Air 03/17/23 15:52 O2 Flow Rate 1.5 03/09/23 21:46 03/17/23 03/17/23 03/17/23 06:59 14:59 22:59 Intake Total 1000 / 2320 600 / 600 Output Total 400 / 400 Balance 600 / 1920 600 / 600 Weight last 48 hrs Weight 238 lb 14.4 oz Weight 246 lb 11.2 oz Physical Exam 2 Narrative: Resting comfortably on the chair. Not in any respiratory distress. Vitals: Pulse irregularly irregular A-fib heart rate 80-110, blood pressure 110/74, O2 saturation 95% on room air There is no JVD HENMT unremarkable Eyes normal Lungs: Good air entry, very minimal fine Rales at the bases. Card examination: Irregularly irregular A-fib pulse normal first and second heart sounds. No added sounds. Abdomen soft nontender bowel sounds audible Lower extremities 1+ bilateral pedal edema. Skin warm and dry. Neuro grossly intact. Urinary Catheter Management: Sanches: Cath Placed During This Visit: yes, but has since been removed by the nurse Reason for Continuing Indwelling Catheter: Decision to DC Catheter Urinary Catheter Date of Insertion: 03/10/23 Urinary Catheter Time of Insertion: 08:36 Date Urinary Catheter Removed: 03/14/23 Time Urinary Catheter Discontinued: 07:00 Data 03/17/23 01:30 03/17/23 01:30 A&P Assessment and plan (1) Atrial fibrillation with tachycardic ventricular rate: rate controlled in resting state but high with activites. agree with adding amiodarone 200 mg daily. continue current meds. discussed plan with family. (2) Hypertension: adequately controlled. Qualifiers: Hypertension type: primary hypertension Qualified Code(s): I10 - Essential (primary) hypertension Attestations 2 Medical Necessity Statement*: will be able to go home in am from cardiac standpoint if HR controlled. Coding Level of Care Code Acute Code for Chg Fwd Diagnoses Atrial fibrillation with tachycardic ventricular rate I48.91 Primary hypertension I10 Hypertension type: primary hypertension
[2023-03-17] MEDS: tamsulosin 0.4 mg Capsule PO (20:17)
[2023-03-17 20:37] LABS: Glucose Point of Care 209 mg/dL (70-110)
[2023-03-18] VITALS (9 sets, daily range): BP systolic 97–122; BP diastolic 68–95; PULSE 83–104; RESP 13–20; TEMP 36–36.4; O2SAT 92–95
[2023-03-18] MEDS: levothyroxine 137 mcg Tablet PO (05:55)
[2023-03-18 06:07] LABS: Glucose Point of Care 161 mg/dL (70-110)
[2023-03-18 06:26] LABS: Basophils # 0.1 10^3/uL (0.0-0.1); Basophils % 0.8 %; Eosinophils # 0.2 10^3/uL (0.0-0.8); Eosinophils % 2.7 %; Hematocrit 42.9 % (37-53); Lymphocytes # 1.9 10^3/uL (0.8-4.8); Lymphocytes % 23.7 %; Mean Corpuscular HGB Conc 33.6 g/dL (30-55); Mean Corpuscular Hemoglobin 32.1 pg (27-33); Mean Corpuscular Volume 95.8 fl (82-101); Mean Platelet Volume 10.1 fL (7.4-10.4); Monocytes # 0.9 10^3/uL (0.2-0.9); Monocytes % 11.2 %; Neutrophils # 4.74 10^3/uL (1.8-7.7); Neutrophils % 60.1 %; Nucleated Red Blood Cells % 0 %; Platelet Count 147 10^3/cmm (157-399); Red Blood Count 4.48 10^6/uL (3.85-5.65); Red Cell Distribution Width 12.5 % (12.1-15.1); White Blood Count 7.88 10^3/uL (3.29-11.43)
[2023-03-18 06:51] LABS: Alanine Aminotransferase 88 U/L (0-41); Albumin Level 3.3 g/dL (3.5-5.2); Alkaline Phosphatase 101 U/L (40-130); Aspartate Amino Transferase 93 U/L (0-40); Blood Urea Nitrogen 28 mg/dL (8-23); Calcium 9.4 mg/dL (8.5-10.5); Carbon Dioxide 29 mmol/L (22-29); Chloride 93 mmol/L (98-107); Globulin 3.6 g/dL (1.3-4.6); Glucose 169 mg/dL (65-115); Magnesium 1.7 mg/dL (1.7-2.3); Osmolality Calculated 281 mOsm/kg (285-295); Phosphorus 3.8 mg/dL (2.5-4.5); Sodium 131 mmol/L (136-145); Total Bilirubin 0.5 mg/dL (0.15-1.2); Total Protein 6.9 g/dL (6.6-8.7)
[2023-03-18 06:57] LABS: NT Pro B Type Natriuretic Pept 2293 pg/mL (0-450)
--- NOTE | 2023-03-18 08:37 | P.PN_ITS ---
Subjective 2 Subjective: Patient feeling better. Heart rate is better controlled. Vitals/I&O/Wt Last Vital Signs Temp 97.6 F 03/18/23 04:00 Pulse 104 H 03/18/23 07:41 Resp 16 03/18/23 07:41 BP 122/95 03/18/23 04:00 Pulse Ox 95 03/18/23 07:41 O2 Del Method Room Air 03/18/23 07:41 O2 Flow Rate 1.5 03/09/23 21:46 03/17/23 03/18/23 03/18/23 22:59 06:59 14:59 Intake Total 640 / 1240 Balance 640 / 1240 Weight last 48 hrs Weight 240 lb Weight 238 lb 14.4 oz Physical Exam 2 Narrative: GENERAL: Patient is alert and oriented x3. [] NECK: No jugular vein distension. [] HEENT: No cyanosis. No icterus. No pallor. [] HEART: Regular S1 and S2. No murmur, rub or gallop. [] LUNGS: Clear to auscultate bilaterally. [] ABDOMEN: Soft, nontender and nondistended. Positive bowel sounds. No guarding, rebound or tenderness. [] CENTRAL NERVOUS SYSTEM: Grossly nonfocal. [] EXTREMITIES: Lower extremities with 1+ edema bilaterally. Pulses palpable in the lower extremities, both dorsalis pedis and posterior tibial. [] Urinary Catheter Management: Sanches: Cath Placed During This Visit: yes, but has since been removed by the nurse Reason for Continuing Indwelling Catheter: Decision to DC Catheter Urinary Catheter Date of Insertion: 03/10/23 Urinary Catheter Time of Insertion: 08:36 Date Urinary Catheter Removed: 03/14/23 Time Urinary Catheter Discontinued: 07:00 Data 03/18/23 06:15 03/18/23 06:15 A&P Assessment and plan (1) Atrial fibrillation with tachycardic ventricular rate: Heart rate is better controlled. We will continue with current medications. Eliquis to be uptitrated to 5 mg twice daily. Event monitor at time of discharge. If at home heart rate is still uncontrolled, will consider NGUYEN cardioversion (2) Hypertension: adequately controlled. Qualifiers: Hypertension type: primary hypertension Qualified Code(s): I10 - Essential (primary) hypertension Attestations 2 Medical Necessity Statement*: Care expected to cross 2 midnights. Coding Level of Care Code Acute Code for Chg Fwd Diagnoses Atrial fibrillation with tachycardic ventricular rate I48.91 Primary hypertension I10 Hypertension type: primary hypertension
[2023-03-18] MEDS: finasteride 5 mg Tablet PO (09:45)
[2023-03-18] MEDS: magnesium lactate 84 mg Tablet PO (09:45)
[2023-03-18] MEDS: amiodarone 200 mg Tablet 400 MG PO (09:45)
[2023-03-18] MEDS: metoprolol tartrate 50 mg Tablet 100 MG PO (09:45)
[2023-03-18] MEDS: doxycycline 100 mg Tablet PO (09:45)
[2023-03-18] MEDS: apixaban 5 mg Tablet PO (09:46)
[2023-03-18] MEDS: insulin lispro 100 unit/1 mL SUBCUT (09:46)
[2023-03-18 11:17] LABS: Glucose Point of Care 260 mg/dL (70-110)
--- NOTE | 2023-03-18 11:24 | PC.SOCIAL ---
IMM Updated Updated pt & on IMM. No questions voiced. Provided pt a copy. Initialed, dated, & timed copy in chart.
--- NOTE | 2023-03-18 12:03 | PM.DCS ---
Discharge Providers Date of Admission: 03/09/23 21:31 Date of Discharge: March 18, 2023 Attending Provider at Admission: Efrain Birch MD Attending Provider at Discharge: Phil Wilks MD Primary Care Provider: Sirena Wong MD Diagnoses at Discharge Discharge Diagnosis (1) Atrial fibrillation with tachycardic ventricular rate: Status: Acute (2) Hypertension: Status: Acute Qualifiers: Hypertension type: primary hypertension Qualified Code(s): I10 - Essential (primary) hypertension Reason for Visit Reason for Visit: SOB Hospital Course Hospital Course Adonis Means is a 82 year old male with history of diabetes, BPH, no previous history of CHF or A-fib no history of sleep apnea presented with chief, shortness of breath. Patient is stating that he has been struggling with low extremity swelling which she initially attributed to sedentary lifestyle, he was recently treated for bronchitis, he was recently started on Lasix when he was seen by the PCP clinic. He is experiencing orthopnea, PND, shortness of breath on exertion. He has not noticed any chest pain. No nausea, vomiting or fever. In the ER he has been diagnosed with A-fib RVR requiring Cardizem drip, he will also has new onset CHF As per the he does not snore much, is stating that around 2004 he had NSAID induced gastritis and he was in A-fib RVR, he was cardioverted to sinus rhythm since then he never required any cardiac evaluation or medication, she is stating that they do not see anyone other than Dr. Wong at [facility] Patient was admitted to [facility] for A-fib with RVR, managed on the Cardizem drip, transition to p.o. Cardizem, up to 90 every 6 hours, due to persistent A-fib, worsening CHF and lower extremity edema, patient had to be weaned off Cardizem, to metoprolol, started off on 25 twice daily had to increase it to 50 twice daily then to 75 twice daily up to 100 twice daily. Overall patient's heart rates at resting would be between 90-100 but up to exertion they would go up into the 130s, he would feel short of breath, so amiodarone was added 400 twice daily, he tolerated amiodarone well, no chest pain, palpitations, shortness of breath was more well controlled, and his heart rates up and exertion, heart rates were in the 115s, A-fib but well controlled. Will be discharged on Metroprolol 100 twice daily, advised to monitor for lightheadedness or dizziness, no significant episodes here, no presyncopal symptoms, if so please go to the emergency room. Will be discharged on amiodarone tapering dose 400 twice daily for 1 week then 200 twice daily for 1 week then 200 mg once daily. For his Eliquis, I am going to discharge him on Eliquis 5 mg twice daily, monitor for bloody or black stools or falls if so go to emergency room. For his CHF, patient was diuresed over 10 L during his hospitalization, significantly improved, discharged on Lasix 40 mg once daily, potassium replacement therapy creatinine discharge 1.4 CT of the chest did show pneumonitis, discharged on doxycycline Physical Exam Const: COMMON NORMALS: no acute distress and patient oriented x3 Resp: COMMON NORMALS: normal respiratory effort, No retractions, No use of accessory muscles and clear to auscultation bilaterally AUSCULTATION: clear to auscultation bilaterally Cardio: COMMON NORMALS: regular rate, regular rhythm, S1 normal heart sound present and S2 normal heart sound present RATE: regular rate RHYTHM: regular rhythm HEART SOUNDS: S1 normal heart sound present and S2 normal heart sound present GI: COMMON NORMALS: Normal to inspection, nondistended, normoactive bowel sounds present and non-tender Extremity: COMMON NORMALS: no pedal edema Neuro: COMMON NORMALS: patient oriented x3 Psych: COMMON NORMALS: mental status grossly normal Urinary Catheter Management: Sanches: Cath Placed During This Visit: yes, but has since been removed by the nurse Reason for Continuing Indwelling Catheter: Decision to DC Catheter Urinary Catheter Date of Insertion: 03/10/23 Urinary Catheter Time of Insertion: 08:36 Date Urinary Catheter Removed: 03/14/23 Time Urinary Catheter Discontinued: 07:00 Discharge Data Studies Completed and Pending Completed Studies During Hospitalization Category Date Time Status CT chest wo con [id number] Routine Cat Scan 03/10/23 08:[address] head wo con* [id number] Routine Cat Scan 03/10/23 12:32 Completed XR chest 1V portable [id number] Routine Exams 03/15/23 07:00 Completed XR chest 1V portable [id number] Stat Exams 03/09/23 20:27 Completed CV. echo wo/w contrast [id number] Stat Ultrasound 03/10/23 06:00 Completed Pending at discharge Category Date Time Status Complete Blood Count w/Auto AM LABS Lab 03/19/23 04:00 Ordered Comprehensive Metabolic Panel AM LABS Lab 03/19/23 04:00 Ordered Magnesium AM LABS Lab 03/19/23 04:00 Ordered NT Pro B Type Natriuretic Pept QAM Lab 03/19/23 06:00 Ordered Phosphorus AM LABS Lab 03/19/23 04:00 Ordered Sputum Culture and Gram Stain Stat Lab 03/10/23 08:54 Uncollected Radiology Impressions Chest CT 03/10/23 08:54 IMPRESSION: 1. Clebmwce-[id number]-[id number] freely layering bilateral pleural effusions. 2. Bilateral atelectasis with some areas of probable superimposed pneumonitis. 3. Additional details as above. Head CT 03/10/23 12:32 IMPRESSION: There are senescent changes of the brain as described above. No evidence for large acute ischemic infarction or acute intracranial injury. Chest X-Ray 03/15/23 07:00 IMPRESSION: 1. Intrathoracic fluid overload consisting of bilateral pleural effusions consistent with the recent CT scan comparison. 2. Hazy lower lung opacities are nonspecific; bibasilar atelectasis favored. Cannot exclude mild dependent pulmonary edema. Laboratory Results WBC 7.88 10^3/uL (3.29-11.43) 03/18/23 06:15 RBC 4.48 10^6/uL (3.85-5.65) 03/18/23 06:15 Hgb 14.40 g/dL (11.27-16.99) 03/18/23 06:15 Hct 42.9 % (37-53) 03/18/23 06:15 MCV 95.8 fl (82-101) 03/18/23 06:15 MCH 32.1 pg (27-33) 03/18/23 06:15 MCHC 33.6 g/dL (30-55) 03/18/23 06:15 RDW 12.5 % (12.1-15.1) 03/18/23 06:15 Plt Count 147 10^3/cmm (157-399) L 03/18/23 06:15 MPV 10.1 fL (7.4-10.4) 03/18/23 06:15 Neut % (Auto) 60.1 % 03/18/23 06:15 Lymph % (Auto) 23.7 % 03/18/23 06:15 Arroyo % (Auto) 11.2 % 03/18/23 06:15 Eos % (Auto) 2.7 % 03/18/23 06:15 Baso % (Auto) 0.8 % 03/18/23 06:15 Neut # (Auto) 4.74 10^3/uL (1.8-7.7) 03/18/23 06:15 Lymph # (Auto) 1.9 10^3/uL (0.8-4.8) 03/18/23 06:15 Arroyo # (Auto) 0.9 10^3/uL (0.2-0.9) 03/18/23 06:15 Eos # (Auto) 0.2 10^3/uL (0.0-0.8) 03/18/23 06:15 Baso # (Auto) 0.1 10^3/uL (0.0-0.1) 03/18/23 06:15 Nucleated RBC % (auto) 0 % 03/18/23 06:15 Nucleated RBCs # 0.0 /100WBC 03/18/23 06:15 PT 15.30 SECONDS (12.1-14.9) H 03/09/23 21:25 INR 1.17 (0.8-1.2) 03/09/23 21:25 Specimen Type Arterial 03/09/23 20:45 Sample Site Radial, left 03/09/23 20:45 ABG pH 7.40 (7.35-7.45) 03/09/23 20:45 ABG pCO2 33.3 mmHg (35-45) L 03/09/23 20:45 ABG pO2 78.1 mmHg (80.0-100.0) L 03/09/23 20:45 ABG HCO3 20.5 mmol/L (22-26) L 03/09/23 20:45 ABG Base Excess -3.5 mmol/L (-2.0-2.0) L 03/09/23 20:45 Dany Test Pos 03/09/23 20:45 Hematocrit 42.7 % (42-52) 03/09/23 20:45 Hgb O2 Saturation 94.9 % (95-100) L 03/09/23 20:45 Carboxyhemoglobin 1.0 %THgb (0.4-20.1) 03/09/23 20:45 Methemoglobin 0.3 % (0.4-1.5) L 03/09/23 20:45 Total Hemoglobin 13.9 g/dL (14-18) L 03/09/23 20:45 O2 Delivery Device Nc 03/09/23 20:45 O2 Liters/Min 2.0 % 03/09/23 20:45 Ssis Ssrs Developer ID [email or web address] 03/09/23 20:45 Sodium 131 mmol/L (136-145) L 03/18/23 06:15 Potassium 4.0 mmol/L (3.5-5.1) 03/18/23 06:15 Chloride 93 mmol/L (98-107) L 03/18/23 06:15 Carbon Dioxide 29 mmol/L (22-29) 03/18/23 06:15 Anion Gap 13.0 (5-19) 03/18/23 06:15 BUN 28 mg/dL (8-23) H 03/18/23 06:15 Creatinine 1.4 mg/dL (0.7-1.2) H 03/18/23 06:15 GFR Calculation Not Reportable 03/18/23 06:15 Glucose 169 mg/dL (65-115) H 03/18/23 06:15 POC Glucose 260 mg/dL (70-110) H 03/18/23 11:06 Estimat Average Glucose 186 03/09/23 20:42 Hemoglobin A1c 8.1 % (4.0-6.0) H 03/09/23 20:42 Calculated Osmolality 281 mOsm/kg (285-295) L 03/18/23 06:15 Calcium 9.4 mg/dL (8.5-10.5) 03/18/23 06:15 Phosphorus 3.8 mg/dL (2.5-4.5) 03/18/23 06:15 Magnesium 1.7 mg/dL (1.7-2.3) 03/18/23 06:15 Total Bilirubin 0.5 mg/dL (0.15-1.2) 03/18/23 06:15 AST 93 U/L (0-40) H 03/18/23 06:15 ALT 88 U/L (0-41) H 03/18/23 06:15 Alkaline Phosphatase 101 U/L (40-130) 03/18/23 06:15 Troponin T Baseline 147 ng/L (0-15) H* 03/09/23 21:25 Troponin T 120 Minute 147.1 ng/L (0-15) H 03/09/23 23:33 Delta Troponin T 0.1 ABS# (0-10) 03/09/23 23:33 Troponin T Hi Sens 6Hr 143.7 ng/L (0-15) H 03/10/23 02:12 Troponin T Hi Sens 6Hr Delta -3.3 ng/L (0-12) L 03/10/23 02:12 C-Reactive Protein 5.9 mg/L (0.0-4.9) H 03/10/23 02:12 NT-Pro-B Natriuret Pep 2293 pg/mL (0-450) H 03/18/23 06:15 Total Protein 6.9 g/dL (6.6-8.7) 03/18/23 06:15 Albumin 3.3 g/dL (3.5-5.2) L 03/18/23 06:15 Globulin 3.6 g/dL (1.3-4.6) 03/18/23 06:15 Procalcitonin 0.14 ng/mL (0-0.5) 03/10/23 02:12 TSH 5.55 uIU/mL (0.27-4.20) H 03/09/23 21:25 Nasal Influ A H1 2009 PCR Not detected (NOT DETECT) 03/10/23 13:00 Adenovirus (PCR) Not detected (NOT DETECT) 03/10/23 13:00 C. pneumoniae DNA (PCR) Not detected (NOT DETECT) 03/10/23 13:00 Coronavirus 229E (PCR) Not detected (NOT DETECT) 03/10/23 13:00 Human Metapneumovir PCR Not detected (NOT DETECT) 03/10/23 13:00 Influenza A (H1) PCR Not detected (NOT DETECT) 03/10/23 13:00 Influenza A (H3) PCR Not detected (NOT DETECT) 03/10/23 13:00 Influenza Type A Ag negative (Negative) 03/09/23 20:59 Influenza Type A (PCR) Not detected (NOT DETECT) 03/10/23 13:00 Influenza Type B Ag negative (Negative) 03/09/23 20:59 Influenza Type B (PCR) Not detected (NOT DETECT) 03/10/23 13:00 M. pneumoniae (PCR) Not detected (NOT DETECT) 03/10/23 13:00 Parainfluenza 1 (PCR) Not detected (NOT DETECT) 03/10/23 13:00 Parainfluenza 2 (PCR) Not detected (NOT DETECT) 03/10/23 13:00 Parainfluenza 3 (PCR) Not detected (NOT DETECT) 03/10/23 13:00 Parainfluenza 4 (PCR) Not detected (NOT DETECT) 03/10/23 13:00 RSV Type A (PCR) Not detected (NOT DETECT) 03/10/23 13:00 RSV Type B (PCR) Not detected (NOT DETECT) 03/10/23 13:00 Entero/Rhino (PCR) Not detected (NOT DETECT) 03/10/23 13:00 SARS-CoV-2 (PCR) Not detected (NOT DETECT) 03/10/23 13:00 Vitals Last Vital Signs Temp 96.8 F L 03/18/23 08:41 Pulse 103 H 03/18/23 08:41 Resp 18 03/18/23 08:41 BP 117/73 03/18/23 08:41 Pulse Ox 93 03/18/23 08:41 O2 Del Method Room Air 03/18/23 08:41 O2 Flow Rate 1.5 03/09/23 21:46 Discharge Plan Discharge Patient Disposition: Home Condition: Stable Prescriptions: New tamsulosin 0.4 mg Capsule 0.4 mg PO BEDTIME 30 Days Qty: 30 0RF magnesium L-lactate [Magtab] 84 mg Tablet Extended Release 84 mg PO DAILY 30 Days Qty: 30 0RF amiodarone [Pacerone] 200 mg Tablet See Rx Instructions .ROUTE .COMPLEX 30 Days Qty: 120 0RF Rx Instructions: 2 tablets twice a day for 1 week, followed by 1 tablet twice a day for 1 week, followed by 1 tablet once a day furosemide 40 mg Tablet 40 mg PO DAILY@0800 30 Days Qty: 30 0RF Eliquis 5 mg Tablet 5 mg PO BID@0900,2100 30 Days Qty: 60 0RF glimepiride 1 mg tablet 1 mg PO BIDWM 30 Days Qty: 30 0RF doxycycline monohydrate 100 mg Tablet 100 mg PO BID 30 Days Qty: 60 0RF metoprolol tartrate 100 mg tablet 100 mg PO BID@0900,2100 30 Days Qty: 60 0RF potassium chloride [Klor-Con M20] 20 mEq tablet,ER particles/crystals 20 meq PO DAILY 30 Days Qty: 30 0RF Continued (DME) blood-glucose meter Kit See Rx Instructions .Route Rx Instructions: use to test blood sugar once daily (DME) lancets [Comfort Lancets] [facility] [place] See Rx Instructions .Route Rx Instructions: use to check blood sugar once daily levothyroxine 137 mcg tablet 137 mcg PO DAILY 90 Days Qty: 90 1RF Rx Instructions: IN PM finasteride 5 mg tablet 5 mg PO DAILY 30 Days Qty: 90 1RF Rx Instructions: IN PM galantamine 4 mg tablet 4 mg PO BID 90 Days Qty: 180 3RF Rx Instructions: administer with AM and PM meals (DME) Accu-Chek Angely Plus test strp Strip See Rx Instructions .ROUTE .COMPLEX Qty: 100 4RF Dose Instruction: Check blood sugar 1-2 x daily Rx Instructions: Check blood sugar 1-2 x daily ipratropium-albuterol 0.5 mg-3 mg(2.5 mg base)/3 mL solution for nebulization 3 ml inhalation Q6H PRN (Reason: wheezing) Qty: 90 1RF tamsulosin 0.4 mg capsule 0.4 mg PO QAM Discontinued spironolactone 25 mg tablet 25 mg PO DAILY Qty: 30 1RF glimepiride 4 mg tablet 6 mg PO BID 90 Days Qty: 270 1RF Discharge Orders: Discharge Order (Routine); Ordered 03/18/23 Ordered By: Phil Wilks Referrals: Juwan Cook M.D [Physician] - 1 week Sirena Wong MD [Primary Care Provider] - 03/19/23 11:00 am Discharge Diet: Cardiac Discharge Activity: Resume usual activity Patient Instructions: Metoprolol (By mouth), Furosemide (By mouth) (Lasix), Amiodarone (By mouth) (Cordarone, Pacerone), Tamsulosin (By mouth) (Flomax), Apixaban (By mouth) (Eliquis), Heart Failure (DC), A-fib (Atrial Fibrillation) (DC), CHF Stoplight, Opioid Safety Activity Restrictions/Additional Instructions: - Please see primary care provider, ? I have discharged you on amiodarone tapering dose, 400 mg twice daily for 1 week, followed by 200 mg twice daily for 1 week followed by 200 mg once daily, ? Discharge, Toprol 100 mg twice daily, monitor for lightheadedness or dizziness if so go to the emergency room, ? Monitor for shortness of breath and lower extremity edema, ? I have discharged you on Lasix 40 mg once daily with potassium replacement therapy, please limit your fluid intake to a liter of fluid a day, ? Please have your primary care provider monitor your liver function and your thyroid function, ? Creatinine on discharge was 1.4, monitor as outpatient ? We have discharged you on Eliquis 5 mg twice daily, this is a very powerful blood thinner, if you have a fall, or bloody or black stools please go immediately to the emergency room ? If you have any strokelike symptoms please call 911 Discharge Attestations Time Spent in Discharge Care*: greater than 30 min Quality Metrics Clinical Quality Measures [ No reported AMI, CVA or VTE this stay] Coding Level of Care Code 68026 Total time (in minutes) for Discharge: 45 Diagnoses Atrial fibrillation with tachycardic ventricular rate I48.91 Primary hypertension I10 Hypertension type: primary hypertension
--- NOTE | 2023-03-18 14:28 | PC.NURSE ---
Discharge Note Patient discharged to home via POV accompanied by spouse. Discharge instructions reviewed with patient and/or patient registration representative. Mobile pharmacy medications and/or prescriptions provided. Belongings/home medications returned.
== END 2023-03-18 12:00 | disposition home health service (06) | DRG 291 ==
LOC: ER 21:44 → CSU 21:45
PROVIDERS: Admitting Provider Internal Medicine; Emergency Provider Internal Medicine; PCP Family Medicine; Visit Provider Family Medicine
DX: I11.0 Hypertensive heart disease with heart failure (principal); I50.31 Acute diastolic (congestive) heart failure; J18.9 Pneumonia, unspecified organism; I48.91 Unspecified atrial fibrillation; Z11.52 Encounter for screening for COVID-19; E11.9 Type 2 diabetes mellitus without complications; N40.0 Benign prostatic hyperplasia without lower urinary tract symptoms; E07.9 Disorder of thyroid, unspecified; G31.83 Neurocognitive disorder with Lewy bodies; F02.80 Dementia in other diseases classified elsewhere, unspecified severity, without behavioral disturbance, psychotic disturbance, mood disturbance, and anxiety; G30.9 Alzheimer's disease, unspecified; R59.0 Localized enlarged lymph nodes; R09.02 Hypoxemia
CPT/HCPCS: 36415; 36416; 36600; 51702; 70450; 71045; 71046; 71250; 80048; 80053; 82805; 82962; 83036; 83735; 83880; 84100; 84145; 84443; 84484; 85025; 85610; 86140; 87486; 87581; 87633; 87804; 93005; 93010; 93306; 94640; 96365; 96366; 96372; 96375; 96376; 97110; 97116; 97161; 97167; 97530; 97535; 99285; C8929; J1650; J1815; J1940; J3490; Q3014; Q9956

== ENCOUNTER → 2023-03-19 11:51 | Outpatient (BNVA) | payer MEDICARE, SELFPAY | PROVIDERS: PCP Family Medicine; Visit Provider Family Medicine | DX: I48.91 Unspecified atrial fibrillation (principal); I50.23 Acute on chronic systolic (congestive) heart failure; I10 Essential (primary) hypertension; E11.9 Type 2 diabetes mellitus without complications; J06.9 Acute upper respiratory infection, unspecified; Z09 Encounter for follow-up examination after completed treatment for conditions other than malignant neoplasm | CPT/HCPCS: 80053; 83735; 83880; 84100; 85025 ==

== ENCOUNTER → 2023-03-25 11:12 | Outpatient (BNVA) | payer MEDICARE, SELFPAY | PROVIDERS: PCP Family Medicine; Visit Provider Nurse Practitioner Family | DX: I48.0 Paroxysmal atrial fibrillation (principal); I45.10 Unspecified right bundle-branch block | CPT/HCPCS: 93005; 99213 ==

== ENCOUNTER → 2023-04-02 11:41 | Outpatient (BNVA) | payer MEDICARE, SELFPAY | PROVIDERS: PCP Family Medicine; Visit Provider Family Medicine | DX: I10 Essential (primary) hypertension (principal); I50.9 Heart failure, unspecified; I48.91 Unspecified atrial fibrillation; I50.23 Acute on chronic systolic (congestive) heart failure; E11.9 Type 2 diabetes mellitus without complications | CPT/HCPCS: 80048; 83735 ==

== ENCOUNTER → 2023-04-16 15:28 | Outpatient (BNVA) | payer MEDICARE, SELFPAY | PROVIDERS: PCP Family Medicine; Visit Provider Internal Medicine | DX: I50.9 Heart failure, unspecified (principal); I48.91 Unspecified atrial fibrillation; I10 Essential (primary) hypertension | CPT/HCPCS: 80048; 83880; 99214 ==

== ENCOUNTER 2023-05-02 14:38 | Outpatient (CLI) | payer MEDICARE, SELFPAY ==
[2023-05-02 15:24] LABS: Anion Gap 16.9 (5-19); Blood Urea Nitrogen 36 mg/dL (8-23); Carbon Dioxide 26 mmol/L (22-29); Chloride 91 mmol/L (98-107); Glucose 475 mg/dL (65-115); Osmolality Calculated 297 mOsm/kg (285-295); Potassium 4.9 mmol/L (3.5-5.1); Sodium 129 mmol/L (136-145)
[2023-05-02 15:48] LABS: NT Pro B Type Natriuretic Pept 813 pg/mL (0-450)
== END 2023-05-02 14:39 | disposition home or self-care (01) ==
LOC: LAB 14:39
PROVIDERS: PCP Family Medicine; Visit Provider Internal Medicine
DX: I48.0 Paroxysmal atrial fibrillation (principal); I11.0 Hypertensive heart disease with heart failure
CPT/HCPCS: 36415; 80048; 83880; 99203

== ENCOUNTER → 2023-05-08 11:41 | Outpatient (BNVA) | payer MEDICARE, SELFPAY | PROVIDERS: PCP Family Medicine; Visit Provider Emergency Medicine | DX: I50.9 Heart failure, unspecified (principal); E11.9 Type 2 diabetes mellitus without complications; N28.9 Disorder of kidney and ureter, unspecified; I10 Essential (primary) hypertension | CPT/HCPCS: 80048; 80053; 83036; 83880 ==

== ENCOUNTER 2023-05-09 07:39 | Emergency (ER) | payer MEDICARE, SELFPAY ==
[2023-05-09 07:46] VITALS: BP 101/66; PULSE 91; TEMP 36.4; O2SAT 94; BMI 34.7
[2023-05-09 07:52] LABS: Glucose Point of Care 570 mg/dL (70-110)
--- NOTE | 2023-05-09 07:55 | W.ED.RECABL ---
HPI - Recheck/Abnormal Lab/Rx General: Chief Complaint: Recheck/Abnormal Lab/Rx Stated Complaint: blood sugar issues Time Seen by Provider: 05/09/23 07:51 Source: patient Mode of arrival: ambulatory History of Present Illness: 82-year-old male presents to the emergency room with complaint of elevated blood sugar. He has been out of his medications for the last several weeks he was on glimepiride. He was seen yesterday and started on insulin. His blood sugar this morning on his Accu-Chek read high Associated symptoms: none Review of Systems Const: Denies: fever(s) or chills Card: Denies: chest pain Resp: Denies: dyspnea GI: Denies: abdominal pain : Denies: dysuria, urinary frequency or urinary urgency Musc: Denies: neck pain or back pain Skin/Breast: Denies: rash PFSH ED PFSH: Medical History Renal insufficiency CHF (congestive heart failure) Atrial fibrillation Peripheral edema Pulmonary hyperinflation Hilar lymphadenopathy Enlarged prostate Type 2 diabetes mellitus Hypertension Thyroid disorder Surgical History Hx of cataract extraction History of lumbar surgery Hx of surgical amputation of finger Family History Mother , in 70s Cancer Blood Father , at age 51 Accident at workplace Sister Dementia Denies family history of Diabetes Hyperlipidemia Chronic kidney disease (CKD) Bleeding disorder Hypertension Thyroid disease Stroke Social History Smoking and tobacco/nicotine status: never used tobacco/nicotine Alcohol intake: never Substance/Drug Use: never Lives independently: Yes Household members: spouse Marital status: Current occupational status: retired Physical Exam Const: COMMON NORMALS: no acute distress GENERAL APPEARANCE: cooperative and comfortable ORIENTATION/CONSCIOUSNESS: Yes awake, Yes oriented to person, Yes oriented to place and Yes oriented to time HENMT: COMMON NORMALS: normocephalic, atraumatic and hearing grossly normal bilaterally HEAD & SCALP: normocephalic and atraumatic Resp: COMMON NORMALS: normal respiratory effort, No retractions, No use of accessory muscles and clear to auscultation bilaterally AUSCULTATION: clear to auscultation bilaterally Cardio: COMMON NORMALS: regular rate, regular rhythm and No murmurs present (Cardio) RATE: regular rate RHYTHM: regular rhythm GI: COMMON NORMALS: Soft to palpation and No hepatosplenomegaly present AUSCULTATION: Yes normoactive bowel sounds PALPATION: Yes Soft to palpation, No Tenderness to palpation present (GI), No Guarding due to palpation present (GI) and Yes No hepatosplenomegaly present Extremity: COMMON NORMALS: normal to inspection, capillary refill normal, no clubbing, cyanosis or edema, no calf tenderness and no pedal edema Neuro: SENSORIUM/ORIENTATION: Yes oriented to person, Yes oriented to place and Yes oriented to time Skin: COMMON NORMALS: no rashes or lesions noted GENERAL SKIN EXAM: no rashes or lesions noted Course Vital Signs: Vital signs: Vital Signs Temperature 97.5 F L 05/09/23 07:46 Pulse Rate 91 05/09/23 07:46 Blood Pressure 101/66 05/09/23 07:46 Pulse Oximetry 94 05/09/23 07:46 Oxygen Delivery Me thod Room Air 05/09/23 07:46 MDM - Recheck/Abnormal Lab/Rx Medical Decision Making After IV fluids and titrated dose of insulin patient's blood sugar did improve. Will discharge home increase his nighttime long-acting insulin to 12 units and gave moderate sliding scale. Follow-up with blood sugar logs and review for further adjustment with primary care doctor within the next week return if is further problems Medical Records I reviewed the patient's medical records. Lab Data I reviewed the patient's lab results. 05/09/23 08:10 Laboratory Results Sodium 126 mmol/L (136-145) L 05/09/23 08:10 Potassium 4.7 mmol/L (3.5-5.1) 05/09/23 08:10 Chloride 88 mmol/L (98-107) L 05/09/23 08:10 Carbon Dioxide 26 mmol/L (22-29) 05/09/23 08:10 Anion Gap 16.7 (5-19) 05/09/23 08:10 BUN 36 mg/dL (8-23) H 05/09/23 08:10 Creatinine 1.7 mg/dL (0.7-1.2) H 05/09/23 08:10 GFR Calculation Not Reportable 05/09/23 08:10 Glucose 606 mg/dL (65-115) H* 05/09/23 08:10 POC Glucose 299 mg/dL (70-110) H 05/09/23 10:48 Calculated Osmolality 299 mOsm/kg (285-295) H 05/09/23 08:10 Calcium 9.4 mg/dL (8.5-10.5) 05/09/23 08:10 Serum Ketones Negative (Negative) 05/09/23 08:10 No radiology studies performed this visit Discharge Plan Discharge Patient Disposition: Home Clinical Impression: Type 2 diabetes mellitus Qualifiers: Diabetes mellitus alf insulin use: without terminal operations supervisor use Diabetes mellitus complication status: without complication Qualified Code(s): E11.9 - Type 2 diabetes mellitus without complications Condition: Stable Prescriptions: New Humalog KwikPen Insulin 100 unit/mL insulin pen 5 unit SUBCUT TID Qty: 15 0RF Rx Instructions: Use sliding scale 3 times a day morning and noon and evening meals Changed Lantus Solostar U-100 Insulin 100 unit/mL (3 mL) insulin pen 12 unit SUBCUT DAILY Qty: 15 0RF Rx Instructions: give after evening meal No Action (DME) blood-glucose meter Kit See Rx Instructions .Route Rx Instructions: use to test blood sugar once daily (DME) lancets [Comfort Lancets] [facility] [place] See Rx Instructions .Route Rx Instructions: use to check blood sugar once daily metoprolol tartrate 50 mg tablet 50 mg PO BID Qty: 180 3RF potassium chloride 10 mEq tablet,ER particles/crystals 10 meq PO TID 30 Days Qty: 90 2RF Eliquis 5 mg tablet 5 mg PO BID Qty: 180 3RF furosemide 40 mg tablet 40 mg PO DAILY galantamine 4 mg tablet 4 mg PO BID 90 Days Qty: 180 3RF Rx Instructions: administer with AM and PM meals (DME) Accu-Chek Angely Plus test strp Strip See Rx Instructions .ROUTE .COMPLEX Qty: 100 4RF Dose Instruction: Check blood sugar 1-2 x daily Rx Instructions: Check blood sugar 1-2 x daily ipratropium-albuterol 0.5 mg-3 mg(2.5 mg base)/3 mL solution for nebulization 3 ml inhalation Q6H PRN (Reason: wheezing) Qty: 90 1RF tamsulosin 0.4 mg capsule 0.4 mg PO QAM spironolactone 25 mg tablet 25 mg PO DAILY Magtab 84 mg Tablet Extended Release 84 mg PO DAILY levothyroxine 137 mcg tablet 137 mcg PO QPM finasteride 5 mg tablet 5 mg PO QPM Discharge Orders: Discharge ED (Routine); Ordered 05/09/23 Ordered By: Holden Quarles Referrals: Sirena Wong MD [Primary Care Provider] - Discharge Diet: Diabetic Discharge Activity: Increase activity as tolerated Patient Instructions: Opioid Safety, Pain Management Activity Restrictions/Additional Instructions: Thank you for choosing [facility] for your healthcare needs today. Please realize this is an emergency room and that we are providing you with a medical screening exam and this may not be complete and all inclusive of all the testing and or work up that you may need to determine your ailment or severity of your illness. It is very important that you follow up as instructed or that you return to the Emergency Department should you have concerns or if your condition changes or worsens in any way. Use the sliding scale insulin you were given in the emergency room follow-up with your primary care doctor within the week Coding Level of Care Code ED [employer] for [employer]
[2023-05-09] MEDS: insulin regular-human 100 units/1 mL 10 UNIT IVP ×3 (08:11→10:25)
[2023-05-09 08:36] LABS: Anion Gap 16.7 (5-19); Blood Urea Nitrogen 36 mg/dL (8-23); Calcium 9.4 mg/dL (8.5-10.5); Carbon Dioxide 26 mmol/L (22-29); Chloride 88 mmol/L (98-107); Osmolality Calculated 299 mOsm/kg (285-295); Potassium 4.7 mmol/L (3.5-5.1); Sodium 126 mmol/L (136-145)
[2023-05-09 08:41] LABS: Ketone (Acetest) Serum Negative (Negative)
[2023-05-09 08:45] LABS: Glucose 606 mg/dL (65-115)
[2023-05-09 08:59] LABS: Glucose Point of Care 496 mg/dL (70-110)
[2023-05-09] MEDS: sodium chloride 0.9% 1,000 ML 999 ML IV (09:00)
[2023-05-09 09:49] LABS: Glucose Point of Care 456 mg/dL (70-110)
[2023-05-09 10:22] LABS: Glucose Point of Care 347 mg/dL (70-110)
[2023-05-09 10:51] LABS: Glucose Point of Care 299 mg/dL (70-110)
== END 2023-05-09 11:09 | disposition home or self-care (01) ==
PROVIDERS: Emergency Provider Family Medicine; PCP Family Medicine
DX: E11.9 Type 2 diabetes mellitus without complications (principal); Z79.01 Long term (current) use of anticoagulants; Z79.4 Long term (current) use of insulin; I11.0 Hypertensive heart disease with heart failure; I50.9 Heart failure, unspecified
CPT/HCPCS: 36415; 36416; 80048; 82009; 82962; 96374; 96376; 99284; J1815; J7030

== ENCOUNTER 2023-06-03 05:35 | Day surgery (SDC) | payer MEDICARE, SELFPAY ==
[2023-06-03] VITALS (12 sets, daily range): BP systolic 105–143; BP diastolic 65–99; PULSE 69–82; RESP 10–19; TEMP 36.1–36.8; O2SAT 93–99
--- NOTE | 2023-06-03 05:52 | SC_ITS ---
WS: [id number] INTRAOPERATIVE TECHNIQUE: 2 Spot fluoroscopic images for intraoperative purposes. FLUOROSCOPY TIME: 160.9 seconds CLINICAL INFORMATION: Pacemaker implantation COMPARISON: None. FINDINGS: Single lead cardiac pacer wire visualized. IMPRESSION: Images obtained for intraoperative purposes.
[2023-06-03] MEDS: sodium chloride 0.9% 1,000 ML 30 ML IV (06:18)
--- NOTE | 2023-06-03 06:25 | P.HP_ITS ---
Providers/Chief Complaint Admitting Physician: Dr. Shukla Primary Care Provider: Sirena Wong MD Chief Complaint: I49.5 History of Present Illness Adonis Means is a 82 year old male whom I saw in outpatient consultation on May [address] Cook to consider pacemaker implantation due to atrial fibrillation and profound pauses up to 5 seconds. This has been documented on Holter monitor. He was hospitalized in March of last year for A-fib with RVR during attempt at rate control, developed substantial pauses. His surgery was scheduled shortly after his consultation was made though delay was required due to hyperglycemia with serum glucose is over 600. This been managed on outpatient by Dr. Sirena Wong and he and his family report these had no serum glucose over 200 for the past 2 weeks. On his presentation this morning, Accu-Chek is 192. He states he feels well and is eager to proceed with pacemaker implantation. He has been on Eliquis for his longstanding atrial fibrillation, though his last dose was last May 30. Complicating factors include advanced age, renal insufficiency, poorly controlled diabetes mellitus, atrial fibrillation with RVR, and congestive heart failure with preserved LV function. Review of Systems Const: Reports: fatigue; Denies: fever(s) or chills Eyes: Denies: change in vision or blurry vision Card: Reports: palpitations, irregular heart rhythm, pre-syncope and dyspnea on exertion; Denies: chest pain or edema Resp: Reports: dyspnea; Denies: productive cough or non-productive cough GI: Denies: abdominal pain, nausea or vomiting Musc: Denies: neck pain or back pain Neuro: Denies: headache(s) or numbness in extremities Medications/Allergies Home Medications Medication Instructions Recorded Confirmed Last Taken Type blood-glucose meter 10/20/21 05/20/23 Unknown History galantamine 4 mg tablet 4 mg PO BID 90 days #180 tabs 12/11/22 06/03/23 06/02/23 Rx ipratropium 0.5 mg-albuterol 3 mg 3 ml inhalation Q6H PRN wheezing 03/04/23 06/03/23 Unknown Rx (2.5 mg base)/3 mL nebulization #90 mL soln tamsulosin 0.4 mg capsule 0.4 mg PO QAM 03/10/23 06/03/23 06/02/23 History apixaban 5 mg tablet (Eliquis) 5 mg PO BID #180 tabs 04/11/23 05/31/23 05/30/23 Rx metoprolol tartrate 50 mg tablet 50 mg PO BID #180 tabs 04/11/23 06/03/23 06/03/23 Rx potassium chloride 10 mEq 10 meq PO TID 30 days #90 tabs 04/11/23 06/03/23 06/02/23 Rx tablet,extended release(part/cryst) furosemide 40 mg tablet 40 mg PO DAILY 05/02/23 06/03/23 06/02/23 History finasteride 5 mg tablet 5 mg PO QPM 05/09/23 06/03/23 06/02/23 History levothyroxine 137 mcg tablet 137 mcg PO QPM 05/09/23 06/03/23 06/03/23 History magnesium L-lactate 84 mg 84 mg PO DAILY 05/09/23 06/03/23 06/02/23 History tablet,extended release (Magtab) spironolactone 25 mg tablet 25 mg PO DAILY 05/09/23 06/03/23 06/02/23 History blood sugar diagnostic (Accu-Chek #100 strips 05/10/23 05/20/23 Unknown Rx Angely Plus test strips) lancets #200 ea 05/10/23 05/20/23 Unknown Rx flash glucose scanning reader #1 ea 05/20/23 05/20/23 Unknown Rx (FreeStyle Danish 14 Day [place]) flash glucose sensor (FreeStyle #2 ea 05/20/23 05/20/23 Unknown Rx Danish 14 Day Sensor kit) insulin lispro 100 unit/mL 5 unit (0.05 mL) SUBCUT TID #15 mL 05/29/23 06/03/23 06/02/23 Rx subcutaneous pen (Humalog KwikPen 5 (U-100) Insulin) pen needle, diabetic 31 gauge x #1,200 ea 05/29/23 Unknown Rx 5/16 (BD Ultra-Fine Short Pen Needle) insulin glargine 100 unit/mL (3 30 unit SUBCUT DAILY 05/31/23 06/03/23 06/02/23 History mL) subcutaneous pen (Lantus 15 Solostar U-100 Insulin) Allergies Allergy/AdvReac Type Severity Reaction Status Date / Time NSAIDS (Non-Steroidal Allergy ALGY-Anaphy Verified 05/31/23 08:47 Anti-Inflamma laxis Penicillins Allergy ALGY-Rash Verified 05/31/23 08:47 memantine AdvReac Mild drowsiness Verified 05/31/23 08:47 PFSH Acute PFSH: Medical History Renal insufficiency CHF (congestive heart failure) Atrial fibrillation Peripheral edema Pulmonary hyperinflation Hilar lymphadenopathy Enlarged prostate Type 2 diabetes mellitus Hypertension Thyroid disorder Surgical History Hx of cataract extraction History of lumbar surgery Hx of surgical amputation of finger Family History Mother , in 70s Cancer Blood Father , at age 51 Accident at workplace Sister Dementia Denies family history of Diabetes Hyperlipidemia Chronic kidney disease (CKD) Bleeding disorder Hypertension Thyroid disease Stroke Social History Smoking and tobacco/nicotine status: never used tobacco/nicotine Alcohol intake: never Substance/Drug Use: never Lives independently: Yes Household members: spouse Marital status: Current occupational status: retired Vitals/I&O/Wt Last Vital Signs Temp 97 F L 06/03/23 06:05 Pulse 81 06/03/23 06:05 Resp 18 06/03/23 06:05 BP 114/87 06/03/23 06:05 Pulse Ox 99 06/03/23 06:05 O2 Del Method Room Air 06/03/23 06:05 Weight last 48 hrs Weight 226 lb Physical Exam Const: COMMON NORMALS: patient oriented x3 and alert ORIENTATION/CONSCIOUSNESS: Yes oriented to person, Yes oriented to place and Yes oriented to time HENMT: COMMON NORMALS: normocephalic HEAD & SCALP: normocephalic; no cranial bruits Neck/C-Spine: COMMON NORMALS: supple, no JVD and No carotid bruits GENERAL: Yes trachea midline CERVICAL SPINE: Yes cervical ROM normal Chest: COMMONS NORMALS: normal inspection of the chest and normal palpation of entire chest wall Resp: COMMON NORMALS: normal respiratory effort, No use of accessory muscles, clear to auscultation bilaterally and percussion normal EFFORT & INSPECTION: Yes able to speak in complete sentences and Yes symmetric chest movement AUSCULTATION: clear to auscultation bilaterally PERCUSSION: percussion normal Cardio: COMMON NORMALS: no JVD, regular rate, S1 normal heart sound present, No gallops present (Cardio), No murmurs present (Cardio) and No rub (Cardio) JUGULAR VENOUS DISTENTION: no JVD RATE: regular rate RHYTHM: abnormal rhythm irregularly irregular HEART SOUNDS: S1 normal heart sound present and S2 normal heart sound present GI: COMMON NORMALS: Normal to inspection, nondistended, normoactive bowel sounds present and non-tender Extremity: COMMON NORMALS: no clubbing, cyanosis or edema Neuro: COMMON NORMALS: patient oriented x3, no focal motor deficits and no sensory deficits noted SENSORIUM/ORIENTATION: Yes alert, Yes oriented to p erson, Yes oriented to place and Yes oriented to time A&P Assessment and plan (1) Sick sinus syndrome: Related to documented sinus pauses up to 5 seconds on Holter monitoring, we will plan for single-lead pacemaker implantation this morning, as Mr. Means has longstanding chronic atrial fibrillation. Details and risk of the procedure were Discussed with him, his , and daughter. Risk reviewed include the possibility of , stroke, heart attack, major bleeding, infection, pneumonia, pneumothorax requiring chest tube, inability to place the lead, migration of the lead requiring revision, and need for long-term monitoring. Mr. Means will be at increased risk related to diabetes mellitus with recently poorly controlled serum glucose levels, advanced age, and renal insufficiency. All questions were answered. Appropriate consents have been provided for review and signature. Attestations Medical Necessity Statement*: Atrial fibrillation with sinus pauses up to 5 seconds Coding Level of Care Code Acute Code for [facility] Diagnoses Sick sinus syndrome I49.5
[2023-06-03 06:29] LABS: Glucose Point of Care 191 mg/dL (70-110)
[2023-06-03 06:36] LABS: Basophils # 0.1 10^3/uL (0.0-0.1); Basophils % 0.6 %; Eosinophils # 0.2 10^3/uL (0.0-0.8); Eosinophils % 2.3 %; Hematocrit 42.8 % (37-53); Lymphocytes # 1.8 10^3/uL (0.8-4.8); Mean Corpuscular HGB Conc 33.9 g/dL (30-55); Mean Corpuscular Hemoglobin 32.2 pg (27-33); Mean Corpuscular Volume 94.9 fl (82-101); Mean Platelet Volume 10.4 fL (7.4-10.4); Monocytes # 0.9 10^3/uL (0.2-0.9); Monocytes % 9.8 %; Neutrophils # 5.87 10^3/uL (1.8-7.7); Neutrophils % 65.4 %; Nucleated Red Blood Cells % 0 %; Platelet Count 150 10^3/cmm (157-399); Red Blood Count 4.51 10^6/uL (3.85-5.65); Red Cell Distribution Width 13.5 % (12.1-15.1); White Blood Count 8.97 10^3/uL (3.29-11.43)
[2023-06-03] MEDS: vancomycin 1,500 MG/300 ML PIGGYBACK 200 MG IV (06:36)
--- NOTE | 2023-06-03 06:36 | P.ANESASSM_ITS ---
Pre-Anesthetic Assessment Height/Weight: Height 1.73 m Weight 102.512 kg Temp Pulse Resp BP Pulse Ox O2 Del Method 97 F L 81 18 114/87 99 Room Air 06/03/23 06:05 06/03/23 06:05 06/03/23 06:05 06/03/23 06:05 06/03/23 06:05 06/03/23 06:05 Preop Diagnosis: Sick sinus syndrome Operation Date: 06/03/23 07:00 Proposed Procedures p Pacemaker Insertion 61343,149.5 148.0 Inpatient(Not Applicable) - Guanakito Shukla MD Familial anesthetic complications: None Was Beta Adam taken within 24 hours: Yes Was Clonidine taken within 24 hours: N/A Last intake: Intake Last Liquid Date 05/23/23 Last Liquid Time 08:00 Last Solid Date 06/02/23 Last Solid Time 18:00 Social No alcohol and No tobacco Exam alert, oriented x 3, clear to auscultation bilaterally and regular rate & rhythm Airway Mallampati: Class III Dentition: full CV/HEM Atrial Fibrillation, Congestive Heart Failure and Hypertension sick sinus syndrome Chronic Renal Insufficiency Metabolic Diabetes Mellitus and Thyroid Disease Anesthetic Plan ASA status: 4 Anesthesia: MAC Risk of > 500 ml blood loss (7ml/kg in children): No Medications/Allergies Home Medications Medication Instructions Recorded Confirmed Last Taken Type blood-glucose meter 10/20/21 05/20/23 Unknown History galantamine 4 mg tablet 4 mg PO BID 90 days #180 tabs 12/11/22 06/03/23 06/02/23 Rx ipratropium 0.5 mg-albuterol 3 mg 3 ml inhalation Q6H PRN wheezing 03/04/23 06/03/23 Unknown Rx (2.5 mg base)/3 mL nebulization #90 mL soln tamsulosin 0.4 mg capsule 0.4 mg PO QAM 03/10/23 06/03/23 06/02/23 History apixaban 5 mg tablet (Eliquis) 5 mg PO BID #180 tabs 04/11/23 05/31/23 05/30/23 Rx metoprolol tartrate 50 mg tablet 50 mg PO BID #180 tabs 04/11/23 06/03/23 06/03/23 Rx potassium chloride 10 mEq 10 meq PO TID 30 days #90 tabs 04/11/23 06/03/2306/02/24 Rx tablet,extended release(part/cryst) furosemide 40 mg tablet 40 mg PO DAILY 05/02/23 06/03/23 06/02/23 History finasteride 5 mg tablet 5 mg PO QPM 05/09/23 06/03/23 06/02/23 History levothyroxine 137 mcg tablet 137 mcg PO QPM 05/09/23 06/03/23 06/03/23 History magnesium L-lactate 84 mg 84 mg PO DAILY 05/09/23 06/03/23 06/02/23 History tablet,extended release (Magtab) spironolactone 25 mg tablet 25 mg PO DAILY 05/09/23 06/03/23 06/02/23 History blood sugar diagnostic (Accu-Chek #100 strips 05/10/23 05/20/23 Unknown Rx Angely Plus test strips) lancets #200 ea 05/10/23 05/20/23 Unknown Rx flash glucose scanning reader #1 ea 05/20/23 05/20/23 Unknown Rx (FreeStyle Danish 14 Day [place]) flash glucose sensor (FreeStyle #2 ea 05/20/23 05/20/23 Unknown Rx Danish 14 Day Sensor kit) insulin lispro 100 unit/mL 5 unit (0.05 mL) SUBCUT TID #15 mL 05/29/23 06/03/23 06/02/23 Rx subcutaneous pen (Humalog KwikPen 5 (U-100) Insulin) pen needle, diabetic 31 gauge x #1,200 ea 05/29/23 Unknown Rx 5/16 (BD Ultra-Fine Short Pen Needle) insulin glargine 100 unit/mL (3 30 unit SUBCUT DAILY 05/31/23 06/03/23 06/02/23 History mL) subcutaneous pen (Lantus 15 Solostar U-100 Insulin) Allergies Allergy/AdvReac Type Severity Reaction Status Date / Time NSAIDS (Non-Steroidal Allergy ALGY-Anaphy Verified 05/31/23 08:47 Anti-Inflamma laxis Penicillins Allergy ALGY-Rash Verified 05/31/23 08:47 memantine AdvReac Mild drowsiness Verified 05/31/23 08:47 Current Medications Generic Name Dose Route Start Last Admin Trade Name Freq PRN Reason Stop Dose Admin Vancomycin/PEG/NADA/Lysine/Water 1,500 mg in 300 mls @ 200 mls/hr 06/03/23 05:52 06/03/23 06:36 Vancocin IV 06/03/23 07:21 200 mls/hr [employer] Administration Protocol Sodium Chloride 1,000 mls @ 30 mls/hr 06/03/23 06:00 06/03/23 06:18 Sodium Chloride 0.9% IV 06/04/23 05:59 30 mls/hr .Q24H DIANA Administration PFSH Anesthesia Medical History Renal insufficiency CHF (congestive heart failure) Atrial fibrillation Peripheral edema Pulmonary hyperinflation Hilar lymphadenopathy Enlarged prostate Type 2 diabetes mellitus Hypertension Thyroid disorder Surgical History Hx of cataract extraction History of lumbar surgery Hx of surgical amputation of finger Family History Mother , in 70s Cancer Blood Father , at age 51 Accident at workplace Sister Dementia Denies family history of Diabetes Hyperlipidemia Chronic kidney disease (CKD) Bleeding disorder Hypertension Thyroid disease Stroke Social History Smoking and tobacco/nicotine status: never used tobacco/nicotine Alcohol intake: never Substance/Drug Use: never Lives independently: Yes Household members: spouse Marital status: Current occupational status: retired Data Anesthesia 06/03/23 06:19 06/03/23 06:19 Short CBC 06/03/23 Range/Units 06:19 WBC 8.97 (3.29-11.43) 10^3/uL Hgb 14.50 (11.27-16.99) g/dL Hct 42.8 (37-53) % MCV 94.9 (82-101) fl Plt Count 150 L (157-399) 10^3/cmm Neut % (Auto) 65.4 % Neut # (Auto) 5.87 (1.8-7.7) 10^3/uL Cardiac Studies: 2 Echocardiogram 03/10/23 Cardiac Event Monitor 03/21/23
[2023-06-03 07:28] LABS: Anion Gap 17.2 (5-19); Blood Urea Nitrogen 39 mg/dL (8-23); Calcium 9.4 mg/dL (8.5-10.5); Carbon Dioxide 23 mmol/L (22-29); Chloride 98 mmol/L (98-107); Glucose 196 mg/dL (65-115); Osmolality Calculated 291 mOsm/kg (285-295); Potassium 5.2 mmol/L (3.5-5.1); Sodium 133 mmol/L (136-145)
[2023-06-03] MEDS: vancomycin 1,000 MG SDV 1000 MG XX (07:38)
[2023-06-03] MEDS: lidocaine 2% INJ 20 mL INJECTION (07:38)
--- NOTE | 2023-06-03 08:19 | XR_ITS ---
WS: [id number] CHEST XRAY TECHNIQUE: Portable chest. CLINICAL INFORMATION: post pacemaker insertion COMPARISON: 03/15/2023 FINDINGS: Heart: Cardiomegaly. Aortic calcification. Single lead cardiac pacer. Lungs: Lungs are clear.. Slight LEFT basilar atelectasis. No pneumothorax. Bones: Osteopenia. IMPRESSION: 1. Status post single lead cardiac pacer placement. No pneumothorax. 2. Shallow inspiration. Cardiomegaly.
--- NOTE | 2023-06-03 08:35 | PM.OP ---
Operative Report Date of procedure: June 03, 2023 Pre-op diagnosis: Atrial fibrillation with sinus pauses Post-op diagnosis: same Procedure done: Single-lead Medtronic pacemaker and lead implantation Implants: Right ventricular lead Medtronic pacemaker Pathology: none sent Surgeon: Guanakito Shukla MD Estimated blood loss (mL): 5 Complications: None: Postprocedure chest x-ray pending Condition: stable Disposition: PACU Brief History: Mr. Means is an 82-year-old gentleman with longstanding atrial fibrillation who developed profound sinus pauses as documented by Holter monitor up to 5 seconds. 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 Cook. Rationale, details, and risks of the surgery were carefully and frankly discussed. He, his , and his daughter wish to proceed. Procedure: Procedure: Mr. Means was taken to the OR suite and placed in the supine position over a shoulder roll. He received conscious sedation with continuous anesthesia monitoring by. His entire chest was sterilely prepped and draped. 1% lidocaine was infiltrated in the left subclavicular region. While in Trendelenburg position, utilizing modified seldinger technique, a guidewire was placed in the left subclavian vein. This was confirmed in position by fluoroscopy. Next, after infiltration with lidocaine, a subcutaneous pocket was created beginning from the exit point of the guidewire and extending laterally and inferiorly. Cautery was utilized to create the pocket just above the pectoralis musculature. Hemostasis was confirmed. An antibiotic-soaked sponge was placed in the wound. A dilator and tear-away sheath was placed over the guidewire and advanced under fluoroscopy. Guidewire and dilator were removed. Next using a combination of curved and straight stylettes, the right ventricular lead was placed in position by fluoroscopy. The distal screw was extended. Interrogation was then performed confirming appropriate parameters. The tear-away sheath was then removed and the ventricular lead was sewn to the floor of the subcutaneous pocket. Pacing generator was brought into the field, and after confirmation of hemostasis in the subcutaneous pocket, the lead was connected to the generator with appropriate capture. The entire system was interrogated by fluoroscopy. Lead and generator were secured in the pocket. Sponge and needle count was correct. The wound was then closed in 2 layers of 3-0 Vicryl suture. Skin was reapproximated in a subcuticular manner with 4-0 Monocryl suture. A pressure dressing was applied. The left arm was placed in a sling. The patient had equal breath sounds bilaterally. He was then transferred to the PACU, where chest x-ray is currently pending. Family was counseled at completion of the procedure. Following are the specifics of this system: Right ventricular lead is 58 cm and model 5076. Serial number [id number] Ventricular lead had sensing of 5.0 mV with an impedance of 1083 ohms. Threshold was 1.25 V CytomX [employer] generator: Model # [id number] Serial #[id number]
[2023-06-03] MEDS: FUROsemide 40 mg Tablet PO (12:11)
[2023-06-03] MEDS: spironolactone 25 mg Tablet PO (12:12)
[2023-06-03] MEDS: levoFLOXacin 500 mg Tablet PO (12:12)
--- NOTE | 2023-06-03 14:57 | ANE.PACU2 ---
Inpatient post-anesthesia follow up: Airway intact: Yes Vital signs: Temperature 97.0 F Pulse Rate 78 Respiratory Rate 16 Blood Pressure 143/86 Pulse Oximetry 95 Oxygen Delivery Me thod Room Air Oxygen Flow Rate Fraction of Inspir ed Oxygen Hydration adequate: Yes Nausea and vomiting: No Pain level: 1 Mental status: Baseline
[2023-06-03] MEDS: insulin lispro 100 unit/1 mL SUBCUT ×2 (18:04→20:50)
--- NOTE | 2023-06-03 20:10 | PC.NURSE ---
pt blood sugar was 150 on his dexcom
[2023-06-03] MEDS: metoprolol tartrate 50 mg Tablet PO (20:51)
[2023-06-04 05:00] VITALS: BP 108/72; PULSE 90; RESP 18; TEMP 36.6; O2SAT 96
[2023-06-04 05:09] VITALS: BP 108/72; PULSE 90; RESP 18; TEMP 36.6; O2SAT 96
[2023-06-04] MEDS: levoFLOXacin 500 mg Tablet PO (06:38)
[2023-06-04] MEDS: tamsulosin 0.4 mg Capsule PO (06:38)
--- NOTE | 2023-06-04 07:08 | PM.DCS ---
Discharge Providers Date of Admission: 06/03/23 Date of Discharge: June 04, 2023 Attending Provider at Admission: Dr. Shukla Attending Provider at Discharge: Guanakito Shukla MD Primary Care Provider: Sirena Wong MD Diagnoses at Discharge Discharge Diagnosis (1) Sick sinus syndrome: Status: Acute Reason for Visit Reason for Visit: I49.5 Hospital Course Hospital Course Mr. Means is an 82-year-old gentleman with chronic atrial fibrillation and profound sinus pauses up to 5 seconds as previously documented on Holter monitor. He was referred by Dr. Cook for pacemaker implantation. He was electively admitted on June 03 underwent single-lead Medtronic pacemaker implantation. Postoperative, he, last on the medical/surgical meeks where he has done well. Postop chest x-ray reveals good lead placement without evidence for pneumothorax. Pacemaker interrogation this morning reveals appropriate function. Surgical dressing was removed. Incision is clean and dry. New dressing was applied. He is tolerating a diet well. He describes very little postoperative discomfort. At the time of discharge, he is in stable condition. Home health services have been arranged. He will follow-up in pacemaker clinic in 1 week. Physical Exam Chest: COMMONS NORMALS: normal inspection of the chest and normal palpation of entire chest wall OTHER: Surgical incision line in the left subclavicular region is clean and dry with no evidence for fluid collection and minimal swelling. Surgical dressing was removed and new dressing applied. Resp: COMMON NORMALS: normal respiratory effort and clear to auscultation bilaterally AUSCULTATION: clear to auscultation bilaterally Cardio: COMMON NORMALS: regular rate; negative for regular rhythm (Irregular rhythm rhythm/chronic atrial fibrillation) RATE: regular rate RHYTHM: abnormal rhythm (Irregular rhythm rhythm/chronic atrial fibrillation) GI: COMMON NORMALS: Normal to inspection, nondistended, normoactive bowel sounds present Extremity: COMMON NORMALS: no clubbing, cyanosis or edema Discharge Data Studies Completed and Pending Completed Studies During Hospitalization Category Date Time Status XR chest 1V portable [id number] Stat Exams 06/03/23 08:19 Completed Pending at discharge Category Date Time Status Urinalysis Routine Lab 06/03/23 05:53 Ordered Laboratory Results WBC 8.97 10^3/uL (3.29-11.43) 06/03/23 06:19 RBC 4.51 10^6/uL (3.85-5.65) 06/03/23 06:19 Hgb 14.50 g/dL (11.27-16.99) 06/03/23 06:19 Hct 42.8 % (37-53) 06/03/23 06:19 MCV 94.9 fl (82-101) 06/03/23 06:19 MCH 32.2 pg (27-33) 06/03/23 06:19 MCHC 33.9 g/dL (30-55) 06/03/23 06:19 RDW 13.5 % (12.1-15.1) 06/03/23 06:19 Plt Count 150 10^3/cmm (157-399) L 06/03/23 06:19 MPV 10.4 fL (7.4-10.4) 06/03/23 06:19 Neut % (Auto) 65.4 % 06/03/23 06:19 Lymph % (Auto) 20.0 % 06/03/23 06:19 [place] % (Auto) 9.8 % 06/03/23 06:19 Eos % (Auto) 2.3 % 06/03/23 06:19 Baso % (Auto) 0.6 % 06/03/23 06:19 Neut # (Auto) 5.87 10^3/uL (1.8-7.7) 06/03/23 06:19 Lymph # (Auto) 1.8 10^3/uL (0.8-4.8) 06/03/23 06:19 [place] # (Auto) 0.9 10^3/uL (0.2-0.9) 06/03/23 06:19 Eos # (Auto) 0.2 10^3/uL (0.0-0.8) 06/03/23 06:19 Baso # (Auto) 0.1 10^3/uL (0.0-0.1) 06/03/23 06:19 Nucleated RBC % (auto) 0 % 06/03/23 06:19 Nucleated RBCs # 0.0 /100WBC 06/03/23 06:19 Sodium 133 mmol/L (136-145) L 06/03/23 06:52 Potassium 5.2 mmol/L (3.5-5.1) H 06/03/23 06:52 Chloride 98 mmol/L (98-107) 06/03/23 06:52 Carbon Dioxide 23 mmol/L (22-29) 06/03/23 06:52 Anion Gap 17.2 (5-19) 06/03/23 06:52 BUN 39 mg/dL (8-23) H 06/03/23 06:52 Creatinine 1.5 mg/dL (0.7-1.2) H 06/03/23 06:52 GFR Calculation Not Reportable 06/03/23 06:52 Glucose 196 mg/dL (65-115) H 06/03/23 06:52 POC Glucose 191 mg/dL (70-110) H 06/03/23 06:19 Calculated Osmolality 291 mOsm/kg (285-295) 06/03/23 06:52 Calcium 9.4 mg/dL (8.5-10.5) 06/03/23 06:52 Procedures Performed Single-lead Medtronic pacemaker implantation on June 03, 2023 Vitals Last Vital Signs Temp 97.8 F 06/04/23 05:09 Pulse 90 06/04/23 05:09 Resp 18 06/04/23 05:09 BP 108/72 06/04/23 05:09 Pulse Ox 96 06/04/23 05:09 O2 Del Method Room Air 06/03/23 23:51 Discharge Plan Discharge Patient Disposition: Home Health Service Condition: Stable Prescriptions: New hydrocodone-acetaminophen 5-325 mg Tablet 1 tab PO Q6H PRN (Reason: Moderate Pain) Qty: 10 0RF levofloxacin 500 mg Tablet 500 mg PO DAILY Qty: 3 0RF Continued (DME) blood-glucose meter Kit See Rx Instructions .Route Rx Instructions: use to test blood sugar once daily metoprolol tartrate 50 mg tablet 50 mg PO BID Qty: 180 3RF potassium chloride 10 mEq tablet,ER particles/crystals 10 meq PO TID 30 Days Qty: 90 2RF Eliquis 5 mg tablet 5 mg PO BID Qty: 180 3RF furosemide 40 mg tablet 40 mg PO DAILY galantamine 4 mg tablet 4 mg PO BID 90 Days Qty: 180 3RF Rx Instructions: administer with AM and PM meals (DME) FreeStyle Danish 14 Day Sensor Kit See Rx Instructions .ROUTE .MEDSUPPLY Qty: 2 12RF Rx Instructions: As directed (DME) FreeStyle Danish 14 Day [place] Misc See Rx Instructions .ROUTE .MEDSUPPLY Qty: 1 0RF Rx Instructions: As directed ipratropium-albuterol 0.5 mg-3 mg(2.5 mg base)/3 mL solution for nebulization 3 ml inhalation Q6H PRN (Reason: wheezing) Qty: 90 1RF (DME) Accu-Chek Angely Plus test strp Strip See Rx Instructions .ROUTE .COMPLEX Qty: 100 11RF Dose Instruction: Check blood sugar 1-2 x daily Rx Instructions: Use to test blood sugars 3 times daily (DME) lancets Misc See Rx Instructions .Route Qty: 200 11RF Rx Instructions: use to check blood sugar three times daily Humalog KwikPen Insulin 100 unit/mL insulin pen 5 unit SUBCUT TID Qty: 15 2RF Rx Instructions: Use sliding scale 3 times a day morning and noon and evening meals (DME) pen needle, diabetic [BD Ultra-Fine Short Pen Needle] 31 gauge x 5/16 needle See Rx Instructions .Route Qty: 1200 0RF Rx Instructions: Use to test blood sugar 4 times daily tamsulosin 0.4 mg capsule 0.4 mg PO QAM insulin glargine [Lantus Solostar U-100 Insulin] 100 unit/mL (3 mL) insulin pen 30 unit SUBCUT DAILY Rx Instructions: give after evening meal spironolactone 25 mg tablet 25 mg PO DAILY magnesium L-lactate [Magtab] 84 mg Tablet Extended Release 84 mg PO DAILY levothyroxine 137 mcg tablet 137 mcg PO QPM finasteride 5 mg tablet 5 mg PO QPM Discharge Orders: Discharge Order (Routine); Ordered 06/04/23 Ordered By: Guanakito Shukla Referrals: [facility]Other] [facility] [Provider Group] - 1 week (Pacemaker clinic) Discharge Diet: Usual diet Discharge Activity: Limit activity as instructed Patient Instructions: Post Pacemaker - Gayla Activity Restrictions/Additional Instructions: May remove bandage in 2 days May begin daily showers in 3 days Dry incision carefully after showers. May re-cover if desired to prevent irritation from clothing. No swimming or tub baths x 2 weeks No ointments on incision Report drainage, redness, heat, fever, increased pain, or swelling to clinic Do not raise left hand above eye level x 1 week No heavy lifting greater than 5 pounds x 2 weeks May resume Eliquis tomorrow June 05, 2023 Discharge Attestations Time Spent in Discharge Care*: less than 30 min Specific Discharge Activities: educating patient, educating and/or supporting family/caregiver, discussing with medical case worker/social workers/dc planners and evaluating patient/reviewing data Status at Discharge: Cognitive status at discharge: cognitively intact, Behavioral status at discharge: cooperative, Functional status at discharge: independent ambulation, Overall status at discharge: patient is back to baseline Quality Metrics Clinical Quality Measures [ No reported AMI, CVA or VTE this stay] Coding Level of Care Code Acute Code for Chg Fwd Diagnoses Sick sinus syndrome I49.5
[2023-06-04] MEDS: metoprolol tartrate 50 mg Tablet PO (07:32)
[2023-06-04] MEDS: insulin lispro 100 unit/1 mL SUBCUT (07:32)
[2023-06-04] MEDS: magnesium lactate 84 mg Tablet PO (07:33)
[2023-06-04] MEDS: spironolactone 25 mg Tablet PO (07:33)
[2023-06-04] MEDS: FUROsemide 40 mg Tablet PO (07:33)
--- NOTE | 2023-06-04 07:51 | PC.PHAR ---
med rec tech unable to update med rec-med rec was done by ezra vidal on 05/31/23 and discharge orders are put in today 06/04/23 with new prescription meds levofloxacin and norco from
[2023-06-04 07:56] VITALS: BP 103/63; PULSE 67; RESP 16; TEMP 36.3; O2SAT 96
[2023-06-04 08:52] VITALS: BP 103/63; PULSE 67; RESP 16; TEMP 36.3; O2SAT 96
== END 2023-06-04 08:53 | disposition home health service (06) ==
LOC: OR 05:36 → MEDSURG 13:26
PROVIDERS: PCP Family Medicine; Visit Provider Thoracic Surgery (Cardiothoracic Vascular Surgery)
PROC: (CPT 33207; principal; 2023-06-03 07:00)
DX: I48.20 Chronic atrial fibrillation, unspecified (principal); I11.0 Hypertensive heart disease with heart failure; I50.9 Heart failure, unspecified; I49.5 Sick sinus syndrome; E11.9 Type 2 diabetes mellitus without complications; Z79.4 Long term (current) use of insulin
CPT/HCPCS: 33207; 36415; 36416; 71045; 76000; 80048; 82962; 85025; 96372; C1898; J1815; J2704; J3010; J3370; J3490; J7030

== ENCOUNTER → 2023-06-18 13:13 | Outpatient (BNVA) | payer MEDICARE, SELFPAY | PROVIDERS: PCP Family Medicine; Visit Provider Nurse Practitioner Family | DX: I10 Essential (primary) hypertension (principal); Z95.0 Presence of cardiac pacemaker; I48.0 Paroxysmal atrial fibrillation; Z79.01 Long term (current) use of anticoagulants | CPT/HCPCS: 99214 ==

== ENCOUNTER → 2023-07-02 10:45 | Outpatient (BNVA) | payer MEDICARE, SELFPAY | PROVIDERS: PCP Family Medicine; Visit Provider Family Medicine | DX: E11.9 Type 2 diabetes mellitus without complications (principal); I50.9 Heart failure, unspecified; I10 Essential (primary) hypertension; E03.9 Hypothyroidism, unspecified; I48.0 Paroxysmal atrial fibrillation; I49.5 Sick sinus syndrome; E07.9 Disorder of thyroid, unspecified; R53.1 Weakness; Z79.899 Other long term (current) drug therapy | CPT/HCPCS: 80048; 83036; 83880; 84439; 84443; 84481 ==

== ENCOUNTER → 2023-07-03 23:33 | Outpatient (BNVA) | payer MEDICARE, SELFPAY | PROVIDERS: PCP Family Medicine; Visit Provider Internal Medicine | DX: Z45.010 Encounter for checking and testing of cardiac pacemaker pulse generator [battery] (principal) | CPT/HCPCS: 93296 ==

== ENCOUNTER → 2023-07-10 14:55 | Outpatient (BNVA) | payer MEDICARE, SELFPAY | PROVIDERS: PCP Family Medicine; Visit Provider Internal Medicine | DX: Z95.0 Presence of cardiac pacemaker (principal); I48.0 Paroxysmal atrial fibrillation; Z79.01 Long term (current) use of anticoagulants; I11.0 Hypertensive heart disease with heart failure; I50.9 Heart failure, unspecified; E78.2 Mixed hyperlipidemia | CPT/HCPCS: 99214 ==

== ENCOUNTER 2023-07-29 18:33 | Inpatient (IN) | payer MEDICARE, SELFPAY ==
--- NOTE | 2023-07-29 18:34 | XRR_ITS ---
PROCEDURE INFORMATION: Exam: XR Chest Exam date and time: 07/29/2023 6:48 PM Age: 82 years old Clinical indication: Pain; Chest pressure; Prior surgery; Surgery date: 6+ months; Surgery type: Pacer; Additional info: Cp TECHNIQUE: Imaging protocol: Radiologic exam of the chest. Views: 1 view. COMPARISON: CR XR chest 1V portable [id number] 06/03/2023 8:42 AM FINDINGS: Lungs: No focal consolidation. Pleural spaces: No pleural effusion. No pneumothorax. Heart/Mediastinum: No cardiomegaly. Bones/joints: No acute findings. XR/XR chest 1V portable [id number] IMPRESSION: No acute findings.
--- NOTE | 2023-07-29 18:34 | ECG_ITS ---
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 Measurements Intervals [place] Rate: 88 P: 0 DC: 0 QRS: 17 QRSD: 150 T: 40 QT: 415 QTc: 505 Interpretive Statements ATRIAL FIBRILLATION INDETERMINATE AXIS RIGHT BUNDLE BRANCH BLOCK [120+ ms QRS DURATION, UPRIGHT V1, 40+ ms S IN I/aVL/V4/V5/V6] Compared to ECG 03/25/2023 11:17:35 No significant changes Electronically Signed On 07-29-2023 19:32:16 CDT by Maryam Cárdenas M.D. [id number]
[2023-07-29 18:37] VITALS: PULSE 94; RESP 18; TEMP 36.4; O2SAT 97
[2023-07-29 18:59] VITALS: BP 101/84; PULSE 89; RESP 21; O2SAT 98
[2023-07-29 19:03] LABS: Basophils % 0.4 %; Eosinophils # 0.1 10^3/uL (0.0-0.8); Eosinophils % 1.6 %; Hematocrit 38.2 % (37-53); Lymphocytes # 1.4 10^3/uL (0.8-4.8); Lymphocytes % 17.9 %; Mean Corpuscular HGB Conc 33.8 g/dL (30-55); Mean Corpuscular Hemoglobin 32.8 pg (27-33); Mean Corpuscular Volume 97.2 fl (82-101); Mean Platelet Volume 10.2 fL (7.4-10.4); Monocytes # 0.9 10^3/uL (0.2-0.9); Monocytes % 10.7 %; Neutrophils # 5.39 10^3/uL (1.8-7.7); Neutrophils % 67.9 %; Nucleated Red Blood Cells % 0 %; Platelet Count 154 10^3/cmm (157-399); Red Blood Count 3.93 10^6/uL (3.85-5.65); Red Cell Distribution Width 13.1 % (12.1-15.1); White Blood Count 7.94 10^3/uL (3.29-11.43)
[2023-07-29 19:18] LABS: INR 1.17 (0.8-1.2)
[2023-07-29 19:25] LABS: Alanine Aminotransferase 35 U/L (0-41); Albumin Level 3.7 g/dL (3.5-5.2); Alkaline Phosphatase 115 U/L (40-130); Anion Gap 13.5 (5-19); Aspartate Amino Transferase 49 U/L (0-40); Blood Urea Nitrogen 20 mg/dL (8-23); Carbon Dioxide 23 mmol/L (22-29); Chloride 105 mmol/L (98-107); Globulin 3.1 g/dL (1.3-4.6); Glucose 175 mg/dL (65-115); Lipase 28 U/L (13-60); Osmolality Calculated 291 mOsm/kg (285-295); Potassium 4.5 mmol/L (3.5-5.1); Sodium 137 mmol/L (136-145); Total Bilirubin 0.3 mg/dL (0.15-1.2); Total Protein 6.8 g/dL (6.6-8.7)
--- NOTE | 2023-07-29 19:32 | W.ED.CHESTPA ---
HPI - Chest Pain General: Chief Complaint: Chest Pain Stated Complaint: chest pain Time Seen by Provider: 07/29/23 18:34 Source: patient Mode of arrival: ambulatory Limitations: no limitations History of Present Illness: 82-year-old male been having chest pain today that radiated to his left arm. He states he had 2 nitros and his pains resolved. He states that he had some dyspnea with this pain. Denies any vomiting or diarrhea. Denies shortness of breath. PFSH ED PFSH: Medical History Pacemaker Renal insufficiency CHF (congestive heart failure) Atrial fibrillation Peripheral edema Pulmonary hyperinflation Hilar lymphadenopathy Enlarged prostate Type 2 diabetes mellitus Hypertension Thyroid disorder Surgical History Hx of cataract extraction History of lumbar surgery Hx of surgical amputation of finger Family History Mother , in 70s Cancer Blood Father , at age 51 Accident at workplace Sister Dementia Denies family history of Diabetes Hyperlipidemia Chronic kidney disease (CKD) Bleeding disorder Hypertension Thyroid disease Stroke Social History Smoking and tobacco/nicotine status: never used tobacco/nicotine Alcohol intake: never Substance/Drug Use: never Lives independently: Yes Household members: spouse Marital status: Current occupational status: retired Course Vital Signs: Vital signs: Vital Signs Temperature 97.6 F 07/29/23 18:37 Pulse Rate 89 07/29/23 18:59 Respiratory Rate 21 H 07/29/23 18:59 Blood Pressure 101/84 07/29/23 18:59 Pulse Oximetry 98 07/29/23 18:59 Oxygen Delivery Me thod Room Air 07/29/23 18:59 MDM - Chest Pain Medical Decision Making Patient presents here with chest pain he does have an elevated troponin consistent with NSTEMI he has been pain-free here we will give him Lovenox 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 Medical Records I reviewed the patient's medical records. Lab Data I reviewed the patient's lab results. 07/29/23 18:49 07/29/23 18:49 Radiology Impressions Chest X-Ray 07/29/23 18:34 IMPRESSION: No acute findings. Laboratory Results WBC 7.94 10^3/uL (3.29-11.43) 07/29/23 18:49 RBC 3.93 10^6/uL (3.85-5.65) 07/29/23 18:49 Hgb 12.90 g/dL (11.27-16.99) 07/29/23 18:49 Hct 38.2 % (37-53) 07/29/23 18:49 MCV 97.2 fl (82-101) 07/29/23 18:49 MCH 32.8 pg (27-33) 07/29/23 18:49 MCHC 33.8 g/dL (30-55) 07/29/23 18:49 RDW 13.1 % (12.1-15.1) 07/29/23 18:49 Plt Count 154 10^3/cmm (157-399) L 07/29/23 18:49 MPV 10.2 fL (7.4-10.4) 07/29/23 18:49 Neut % (Auto) 67.9 % 07/29/23 18:49 Lymph % (Auto) 17.9 % 07/29/23 18:49 [place] % (Auto) 10.7 % 07/29/23 18:49 Eos % (Auto) 1.6 % 07/29/23 18:49 Baso % (Auto) 0.4 % 07/29/23 18:49 Neut # (Auto) 5.39 10^3/uL (1.8-7.7) 07/29/23 18:49 Lymph # (Auto) 1.4 10^3/uL (0.8-4.8) 07/29/23 18:49 [place] # (Auto) 0.9 10^3/uL (0.2-0.9) 07/29/23 18:49 Eos # (Auto) 0.1 10^3/uL (0.0-0.8) 07/29/23 18:49 Baso # (Auto) 0.0 10^3/uL (0.0-0.1) 07/29/23 18:49 Nucleated RBC % (auto) 0 % 07/29/23 18:49 Nucleated RBCs # 0.0 /100WBC 07/29/23 18:49 PT 15.30 SECONDS (12.1-14.9) H 07/29/23 18:49 INR 1.17 (0.8-1.2) 07/29/23 18:49 Sodium 137 mmol/L (136-145) 07/29/23 18:49 Potassium 4.5 mmol/L (3.5-5.1) 07/29/23 18:49 Chloride 105 mmol/L (98-107) 07/29/23 18:49 Carbon Dioxide 23 mmol/L (22-29) 07/29/23 18:49 Anion Gap 13.5 (5-19) 07/29/23 18:49 BUN 20 mg/dL (8-23) 07/29/23 18:49 Creatinine 1.1 mg/dL (0.7-1.2) 07/29/23 18:49 GFR Calculation Not Reportable 07/29/23 18:49 Glucose 175 mg/dL (65-115) H 07/29/23 18:49 Calculated Osmolality 291 mOsm/kg (285-295) 07/29/23 18:49 Calcium 9.0 mg/dL (8.5-10.5) 07/29/23 18:49 Total Bilirubin 0.3 mg/dL (0.15-1.2) 07/29/23 18:49 AST 49 U/L (0-40) H 07/29/23 18:49 ALT 35 U/L (0-41) 07/29/23 18:49 Alkaline Phosphatase 115 U/L (40-130) 07/29/23 18:49 Troponin T Baseline 153 ng/L (0-15) H* 07/29/23 18:49 Total Protein 6.8 g/dL (6.6-8.7) 07/29/23 18:49 Albumin 3.7 g/dL (3.5-5.2) 07/29/23 18:49 Globulin 3.1 g/dL (1.3-4.6) 07/29/23 18:49 Lipase 28 U/L (13-60) 07/29/23 18:49 All radiology interpretation(s) finalized by discharge EKG Data EKG 1: I personally reviewed and interpreted this EKG as follows: EKG interpretation date: 07/29/23 EKG interpretation time: 18:44 Interpretation: afib hr [address] elevation qrs 150 qtc 461 Discharge Plan Discharge Patient Disposition: Admitted As Inpatient Clinical Impression: Non-ST elevation PA (NSTEMI) Condition: Stable Prescriptions: No Action (DME) blood-glucose meter Kit See Rx Instructions .Route Rx Instructions: use to test blood sugar once daily glipizide 5 mg tablet extended release 24hr 5 mg PO DAILY 30 Days Qty: 30 2RF metoprolol tartrate 50 mg tablet 50 mg PO BID Qty: 180 3RF potassium chloride 10 mEq tablet,ER particles/crystals 10 meq PO TID 30 Days Qty: 90 2RF furosemide 40 mg tablet 40 mg PO DAILY insulin glargine [Lantus Solostar U-100 Insulin] 100 unit/mL (3 mL) insulin pen 25 unit SUBCUT DAILY 30 Days Qty: 15 2RF Rx Instructions: give after evening meal galantamine 4 mg tablet 4 mg PO BID 90 Days Qty: 180 3RF Rx Instructions: administer with AM and PM meals (DME) FreeStyle Danish 14 Day Sensor Kit See Rx Instructions .ROUTE .MEDSUPPLY Qty: 2 12RF Rx Instructions: As directed (DME) FreeStyle Danish 14 Day [place] Misc See Rx Instructions .ROUTE .MEDSUPPLY Qty: 1 0RF Rx Instructions: As directed (DME) Accu-Chek Angely Plus test strp Strip See Rx Instructions .ROUTE .COMPLEX Qty: 100 11RF Dose Instruction: Check blood sugar 1-2 x daily Rx Instructions: Use to test blood sugars 3 times daily (DME) lancets Misc See Rx Instructions .Route Qty: 200 11RF Rx Instructions: use to check blood sugar three times daily (DME) pen needle, diabetic [BD Ultra-Fine Short Pen Needle] 31 gauge x 5/16 needle See Rx Instructions .Route Qty: 1200 0RF Rx Instructions: Use to test blood sugar 4 times daily tamsulosin 0.4 mg capsule See Rx Instructions .ROUTE .COMPLEX Qty: 90 0RF Dose Instruction: TAKE 1 CAPSULE AT BEDTIME Rx Instructions: TAKE 1 CAPSULE AT BEDTIME Eliquis 5 mg tablet 5 mg PO BID Qty: 180 3RF magnesium L-lactate [Magtab] 84 mg Tablet Extended Release 84 mg PO DAILY levothyroxine 137 mcg tablet 137 mcg PO QPM finasteride 5 mg tablet 5 mg PO QPM Referrals: Sirena Wong MD [Primary Care Provider] - Coding Level of Care Code ED Correctional Classification Counselor for Chg Flori
[2023-07-29 19:33] LABS: Troponin(5th) Baseline 153 ng/L (0-15)
--- NOTE | 2023-07-29 19:37 | ECG_ITS ---
[facility] Test Date: 2023-07-29 Pat Name: Adonis Means Department: Room: Gender: Male Ehs Manager: : 1940 Requested By: Rosie Gan Order Number: [id number] Wendy MD: Maryam Cárdenas M.D. Measurements Intervals [place] Rate: 83 P: 0 [place]: 0 QRS: 12 QRSD: 146 T: 29 QT: 411 QTc: 485 Interpretive Statements ATRIAL FIBRILLATION RIGHT BUNDLE BRANCH BLOCK [120+ ms QRS DURATION, UPRIGHT V1, 40+ ms S IN I/aVL/V4/V5/V6] Compared to ECG 07/29/2023 18:44:11 Indeterminate axis no longer present Electronically Signed On 07-29-2023 19:40:27 CDT by Maryam Cárdenas M.D. [id number]
[2023-07-29] MEDS: enoxaparin 120 mg/0.8 mL Syringe 110 MG SUBCUT (19:57)
[2023-07-29 20:00] VITALS: BP 114/73; PULSE 80; RESP 13; O2SAT 98
[2023-07-29 21:00] VITALS: BP 125/79; PULSE 86; RESP 10; O2SAT 96
--- NOTE | 2023-07-29 21:06 | P.HP_ITS ---
Providers/Chief Complaint 2 Primary Care Provider: Sirena Wong MD Chief Complaint: chest pain History of Present Illness Adonis Means is a 82 year old male with atrial fibrillation newly diagnosed and diabetes mellitus and recently placed pacemaker presents with chest pressure. He awoke earlier than usual at 0600 with chest pressure. This discomfort was also in his left shoulder and down his left arm. He denies any trouble breathing however his says that he looked short of breath. His symptoms lasted all day did not get worse did not get better. He did have to lay down. Eventually at 430 he told his that the pain in his arm was getting too uncomfortable and they came to the emergency room. Patient denies history of CT or CVA. He has never had this type of pain prior. No history of stress test or cardiac cath. He does have a history of fluid buildup that occurred February 2023 when he was found to have atrial fibrillation. Echo at that time was negative for LV dysfunction or right-sided heart dysfunction. He reports that he is feeling better now that he has been in the emergency room and given some medications. Review of Systems 2 Const: Denies: fever(s) or chills Eyes: Denies: change in vision ENMT: Denies: throat pain or nasal congestion Card: Reports: chest pain (As above, pressure); Denies: palpitations Resp: Denies: dyspnea or productive cough GI: Denies: abdominal pain, nausea, vomiting or change in stool character : Denies: difficulty urinating or dysuria Musc: Denies: back pain or extremity pain Skin/Breast: Denies: rash or lesions Neuro: Denies: headache(s) or dizziness Psych: Denies: anxiety or depression Chandana/Lymph: Denies: easy bruising or easy bleeding Medications/Allergies Home Medications Medication Instructions Recorded Confirmed Last Taken Type blood-glucose meter 10/20/21 07/24/23 Unknown History galantamine 4 mg tablet 4 mg PO BID 90 days #180 tabs 12/11/22 07/24/23 06/02/23 Rx metoprolol tartrate 50 mg tablet 50 mg PO BID #180 tabs 04/11/23 07/24/23 06/03/23 Rx potassium chloride 10 mEq 10 meq PO TID 30 days #90 tabs 04/11/23 07/24/23 06/02/23 Rx tablet,extended release(part/cryst) furosemide 40 mg tablet 40 mg PO DAILY 05/02/23 07/24/23 06/02/23 History finasteride 5 mg tablet 5 mg PO QPM 05/09/23 07/24/23 06/02/23 History levothyroxine 137 mcg tablet 137 mcg PO QPM 05/09/23 07/24/23 06/03/23 History magnesium L-lactate 84 mg 84 mg PO DAILY 05/09/23 07/24/23 06/02/23 History tablet,extended release (Magtab) blood sugar diagnostic (Accu-Chek #100 strips 05/10/23 07/24/23 Unknown Rx Angely Plus test strips) lancets #200 ea 05/10/23 07/24/23 Unknown Rx flash glucose scanning reader #1 ea 05/20/23 07/24/23 Unknown Rx (FreeStyle Danish 14 Day [place]) flash glucose sensor (FreeStyle #2 ea 05/20/23 07/24/23 Unknown Rx Danish 14 Day Sensor kit) pen needle, diabetic 31 gauge x #1,200 ea 05/29/23 07/24/23 Unknown Rx 5/16 (BD Ultra-Fine Short Pen Needle) tamsulosin 0.4 mg capsule See Rx Instructions .Route 06/19/23 07/24/23 Unknown Rx .COMPLEX #90 caps apixaban 5 mg tablet (Eliquis) 5 mg PO BID #180 tabs 07/02/23 07/24/23 Unknown Rx insulin glargine 100 unit/mL (3 25 unit (0.25 mL) SUBCUT DAILY 30 07/02/23 07/24/23 Unknown Rx mL) subcutaneous pen (Lant days #15 mL Solostar U-100 Insulin) glipizide 5 mg tablet, extended 5 mg PO DAILY 30 days #30 tabs 07/24/23 07/24/23 Unknown Rx release 24 hr Allergies Allergy/AdvReac Type Severity Reaction Status Date / Time NSAIDS (Non-Steroidal Allergy ALGY-Anaphy Verified 07/24/23 07:34 Anti-Inflamma laxis Penicillins Allergy ALGY-Rash Verified 07/24/23 07:34 memantine AdvReac Mild drowsiness Verified 07/24/23 07:34 PFSH Acute 2 PFSH: Medical History Pacemaker Renal insufficiency CHF (congestive heart failure) Atrial fibrillation Peripheral edema Pulmonary hyperinflation Hilar lymphadenopathy Enlarged prostate Type 2 diabetes mellitus Hypertension Thyroid disorder Surgical History Hx of cataract extraction History of lumbar surgery Hx of surgical amputation of finger Family History Mother , in 70s Cancer Blood Father , at age 51 Accident at workplace Sister Dementia Denies family history of Diabetes Hyperlipidemia Chronic kidney disease (CKD) Bleeding disorder Hypertension Thyroid disease Stroke Social History Smoking and tobacco/nicotine status: never used tobacco/nicotine Alcohol intake: never Substance/Drug Use: never Lives independently: Yes Household members: spouse Marital status: Current occupational status: retired Vitals/I&O/Wt Last Vital Signs Temp 97.6 F 07/29/23 18:37 Pulse 89 07/29/23 18:59 Resp 21 H 07/29/23 18:59 BP 101/84 07/29/23 18:59 Pulse Ox 98 07/29/23 18:59 O2 Del Method Room Air 07/29/23 18:59 Weight last 48 hrs Weight 108.409 kg Physical Exam 2 Narrative: Elderly male in no acute distress at time of exam neuro: Alert and oriented nonfocal HEENT head is normocephalic atraumatic pupils equal round reactive to light and commendation extraocular muscles are intact mucous membranes of the nasopharyngeal mucosa moist and pink without lesions or exudate patient has his own teeth in fair condition neck is supple no JVD carotid bruits or lymphadenopathy Heart irregularly irregular no loud murmur click gallop or rub Lungs clear to auscultation anteriorly and posteriorly without wheezes rales or rhonchi Abdomen obese soft nontender nondistended positive bowel sounds no hepatosplenomegal extremities: +1 to +2 pitting edema to the knees Back: No scoliosis or kyphosis no CVA tenderness Psych mood and affect are appropriate for condition Skin no lesions or rashes noted Data 07/29/23 18:49 07/29/23 18:49 CXR: My impression: No acute findings EKG 1: My Interpretation: Atrial fibrillation with controlled rate A&P Assessment and plan (1) Non-ST elevation CT (NSTEMI): Patient already on Eliquis. ER gave gave full dose Lovenox Patient is allergic to NSAIDs therefore aspirin was held Believe decision on Plavix for cardiology Telemetry monitoring Follow troponins Cardiology consult (2) Pacemaker: Recent pacemaker placement for atrial fibrillation. 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 This was done in the emergency room Attestations 2 Medical Necessity Statement*: Patient is expected to cross 2 midnights for this hospitalization due to a non- STEMI patient will require cardiac cath and suspected stenting patient requires close observation for arrhythmias or sudden or worsening ischemia Coding Level of Care Code Acute Code for [facility] Diagnoses Non-ST elevation CT (NSTEMI) I21.4 Pacemaker Z95.0 Chronic anticoagulation Z79.01 Paroxysmal atrial fibrillation I48.0 Atrial fibrillation type: paroxysmal Primary hypertension I10 Hypertension type: primary hypertension Type 2 diabetes mellitus without complication, without long-term current use of insulin E11.9 Diabetes mellitus shelter insulin use: without shelter use Diabetes mellitus complication status: without complication BPH loc w urin obs/LUTS N40.1
[2023-07-29 21:36] LABS: Troponin 5 2HR 443.3 ng/L (0-15); Troponin 5 2HR Delta 290.3 ABS# (0-10)
[2023-07-29 22:00] VITALS: BP 125/83; PULSE 92; RESP 21; O2SAT 95
[2023-07-29] MEDS: tamsulosin 0.4 mg Capsule 0.400000000000000022 MG PO (22:16)
[2023-07-29 23:33] VITALS: BP 122/78; PULSE 89; RESP 16; O2SAT 95
[2023-07-30] VITALS (13 sets, daily range): BP systolic 83–145; BP diastolic 54–87; PULSE 86–112; RESP 10–21; TEMP 36.4–37; O2SAT 94–99
--- NOTE | 2023-07-30 00:34 | ECG_ITS ---
[facility] Test Date: 2023-07-29 Pat Name: Adonis Means Department: Room: EDIP Gender: Male Clinical Research Monitor: : 1940 Requested By: Rosie Gan Order Number: [id number] Wendy MD: Juwan Cook M.D. Measurements Intervals [place] Rate: 93 P: 0 OK: 0 QRS: -2 QRSD: 149 T: 45 QT: 409 QTc: 510 Interpretive Statements ATRIAL FIBRILLATION WITH ABERRANT CONDUCTION OR VENTRICULAR PREMATURE COMPLEXES RIGHT BUNDLE BRANCH BLOCK [120+ ms QRS DURATION, UPRIGHT V1, 40+ ms S IN I/aVL/V4/V5/V6] Compared to ECG 07/29/2023 19:37:06 Ventricular premature complex(es) now present Aberrant conduction of supraventricular beat(s) now present Electronically Signed On 07-30-2023 12:31:27 CDT by Juwan Cook M.D. [id number]
[2023-07-30 01:37] LABS: Chol HDL Ratio 6.51 mg/dL (1.0-5.00); Cholesterol 241 mg/dL (0-200); HDL Cholesterol 37 mg/dL (60-100); LDL Cholesterol Calculated 156 mg/dL (50-129); LDL HDL Ratio 4.22 RATIO (0.00-3.22); Triglycerides 240 mg/dL (0-150)
[2023-07-30 01:39] LABS: Troponin 5 6HR 1131 ng/L (0-15); Troponin 5 6HR Delta 978 ng/L (0-12)
[2023-07-30] MEDS: levothyroxine 137 mcg Tablet PO (06:15)
--- NOTE | 2023-07-30 06:20 | P.CONIM_ITS ---
Providers/Reason For Consult 2 Consulting Physician/Specialty*: Juwan Cook MD/ Cardiology Reason for Consult*: NSTEMI Requesting Physician: NSTEMI Attending Physician: Carlos Ordoñez DO Primary Care Provider: Sirena Wong MD History of Present Illness History of Present Illness Adonis Means is a 82 year old male with past medical history of atrial fibrillation on Eliquis, diabetes, hypertension, has pacemaker in place who presented to hospital yesterday with on and off chest pain since yesterday morning. At around 4 PM it got worse and was radiating to the left arm. His initial troponin was elevated at 153 and trended up to 1131 at 6 hours. EKG shows atrial fibrillation with heart rate of 86 bpm, right bundle branch block and no significant ST-T wave changes. No prior history of CAD. Review of Systems 2 Const: Denies: fever(s) or chills Eyes: Denies: change in vision ENMT: Denies: throat pain or nasal congestion Card: Reports: chest pain; Denies: palpitations Resp: Denies: dyspnea or productive cough GI: Denies: abdominal pain, nausea, vomiting or change in stool character : Denies: difficulty urinating or dysuria Musc: Denies: back pain or extremity pain Skin/Breast: Denies: rash or lesions Neuro: Denies: headache(s) or dizziness Psych: Denies: anxiety or depression Chandana/Lymph: Denies: easy bruising or easy bleeding Medications/Allergies Home Medications Medication Instructions Recorded Confirmed Last Taken Type blood-glucose meter 10/20/21 07/24/23 Unknown History galantamine 4 mg tablet 4 mg PO BID 90 days #180 tabs 12/11/22 07/24/23 06/02/23 Rx metoprolol tartrate 50 mg tablet 50 mg PO BID #180 tabs 04/11/23 07/24/23 06/03/23 Rx potassium chloride 10 mEq 10 meq PO TID 30 days #90 tabs 04/11/23 07/24/23 06/02/23 Rx tablet,extended release(part/cryst) furosemide 40 mg tablet 40 mg PO DAILY 05/02/23 07/24/23 06/02/23 History finasteride 5 mg tablet 5 mg PO QPM 05/09/23 07/24/23 06/02/23 History levothyroxine 137 mcg tablet 137 mcg PO QPM 05/09/23 07/24/23 06/03/23 History magnesium L-lactate 84 mg 84 mg PO DAILY 05/09/23 07/24/23 06/02/23 History tablet,extended release (Magtab) blood sugar diagnostic (Accu-Chek #100 strips 05/10/23 07/24/23 Unknown Rx Angely Plus test strips) lancets #200 ea 05/10/23 07/24/23 Unknown Rx flash glucose scanning reader #1 ea 05/20/23 07/24/23 Unknown Rx (FreeStyle Danish 14 Day [place]) flash glucose sensor (FreeStyle #2 ea 05/20/23 07/24/23 Unknown Rx Danish 14 Day Sensor kit) pen needle, diabetic 31 gauge x #1,200 ea 05/29/23 07/24/23 Unknown Rx 5/16 (BD Ultra-Fine Short Pen Needle) tamsulosin 0.4 mg capsule See Rx Instructions .Route 06/19/23 07/24/23 Unknown Rx .COMPLEX #90 caps apixaban 5 mg tablet (Eliquis) 5 mg PO BID #180 tabs 07/02/23 07/24/23 Unknown Rx insulin glargine 100 unit/mL (3 25 unit (0.25 mL) SUBCUT DAILY 30 07/02/23 07/24/23 Unknown Rx mL) subcutaneous pen (Lant days #15 mL Solostar U-100 Insulin) glipizide 5 mg tablet, extended 5 mg PO DAILY 30 days #30 tabs 07/24/23 07/24/23 Unknown Rx release 24 hr Allergies Allergy/AdvReac Type Severity Reaction Status Date / Time NSAIDS (Non-Steroidal Allergy ALGY-Anaphy Verified 07/24/23 07:34 Anti-Inflamma laxis Penicillins Allergy ALGY-Rash Verified 07/24/23 07:34 memantine AdvReac Mild drowsiness Verified 07/24/23 07:34 Current Medications Generic Name Dose Route Start Last Admin Trade Name Freq PRN Reason Stop Dose Admin Levothyroxine Sodium 137 mcg 07/30/23 06:00 07/30/23 06:15 Levothyroxine 137 Mcg Tablet PO 137 mcg QAM DIANA Administration Tamsulosin HCl 0.4 mg 07/29/23 21:30 07/29/23 22:16 Tamsulosin 0.4 Mg Capsule PO 0.4 mg BEDTIME DIANA Administration PFSH Acute 2 PFSH: Medical History Pacemaker Renal insufficiency CHF (congestive heart failure) Atrial fibrillation Peripheral edema Pulmonary hyperinflation Hilar lymphadenopathy Enlarged prostate Type 2 diabetes mellitus Hypertension Thyroid disorder Surgical History Hx of cataract extraction History of lumbar surgery Hx of surgical amputation of finger Family History Mother , in 70s Cancer Blood Father , at age 51 Accident at workplace Sister Dementia Denies family history of Diabetes Hyperlipidemia Chronic kidney disease (CKD) Bleeding disorder Hypertension Thyroid disease Stroke Social History Smoking and tobacco/nicotine status: never used tobacco/nicotine Alcohol intake: never Substance/Drug Use: never Lives independently: Yes Household members: spouse Marital status: Current occupational status: retired Vitals/I&O/Wt Last Vital Signs Temp 98.6 F 07/30/23 04:26 Pulse 93 07/30/23 05:58 Resp 16 07/30/23 04:26 BP 105/54 07/30/23 04:26 Pulse Ox 98 07/30/23 04:26 O2 Del Method Room Air 07/30/23 04:29 Weight last 48 hrs Weight 233 lb Weight 233 lb Weight 239 lb Physical Exam 2 Narrative: GENERAL: Patient is alert, awake and oriented x3. [] NECK: No jugular vein distension. [] HEENT: No cyanosis. No icterus. No pallor. [] HEART: Irregularly irregular, S1 and S2. No murmur, rub or gallop. [] LUNGS: Clear to auscultate bilaterally. [] CENTRAL NERVOUS SYSTEM: Grossly nonfocal. [] EXTREMITIES: Lower extremities with 1+ edema bilaterally. Data 07/29/23 18:49 07/29/23 18:49 A&P Assessment and plan (1) Non-ST elevation MA (NSTEMI): (2) Hypertension: Qualifiers: Hypertension type: primary hypertension Qualified Code(s): I10 - Essential (primary) hypertension (3) CHF (congestive heart failure): Qualifiers: Heart failure type: unspecified Heart failure chronicity: acute on chronic Qualified Code(s): I50.9 - Heart failure, unspecified (4) Atrial fibrillation: Qualifiers: Atrial fibrillation type: paroxysmal Qualified Code(s): I48.0 - Paroxysmal atrial fibrillation (5) Sick sinus syndrome: (6) Pacemaker: Plan Patient has presented with acute non-ST elevation MA. Plan for coronary angiogram with possible percutaneous coronary intervention. Patient is NPO. He has allergy to aspirin. We will load with Plavix 600 mg. If needs PCI, will continue on Eliquis and Plavix. Order echocardiogram. Continue anticoagulation. Thank you for involving us with care of the patient. We will continue to follow. Please call with questions. Consult Attestations 2 Medical Necessity Statement: Care expected to cross 2 midnights. Coding Level of Care Code Acute Code for [facility] Diagnoses Non-ST elevation MA (NSTEMI) I21.4 Primary hypertension I10 Hypertension type: primary hypertension Acute on chronic congestive heart failure, unspecified heart failure type I50.9 Heart failure type: unspecified Heart failure chronicity: acute on chronic Paroxysmal atrial fibrillation I48.0 Atrial fibrillation type: paroxysmal Sick sinus syndrome I49.5 Pacemaker Z95.0
--- NOTE | 2023-07-30 06:49 | XACV_ITS ---
Exam Room: [facility] Ht: 173 cm Wt: 106 kg BSA: 2.29 m2 Gender: Male : 1940 Any Known Allergies: Other Exam Priority: Routine Procedure(s): Procedure Description: Diagnostic procedure Procedure Description: PCI procedure Procedure Description: Drug Eluting Coronary Stent Procedure Description: PTCA Procedure Description: Miscellaneous Procedure Description: ACT Procedure Description: Coronary Angiography Diagnostic Cath Status: Urgent Diagnostic Findings * Left Main has no significant disease. * Right Coronary Artery has mild to moderate luminal irregularities. * Apical Left Anterior Descending: obstructive 60- 70% stenosis, VIV: 3 flow. * Proximal Circumflex: obstructive 60-70% stenosis, VIV: 3 flow. * Mid Circumflex: critical 95% stenosis, VIV: 3 flow. * Coronary angiography shows right dominance. PCI Status: Urgent PCI Indication: NSTE - ACS Interventional Findings * Procedure detail: We engaged left main artery with XB 3.5 guide catheter. IV heparin was administered to maintain anticoagulation. 0.014 run-through guidewire was used to cross the stenosis and was put in distal left circumflex artery. We predilated the stenosis with 2.5 x 30 mm semicompliant balloon. This was followed with placement of 3.0 x 38 mm resolute [place] drug-eluting stent. We postdilated the stent with 3.25 x 15 mm NC balloon at high pressure. At this time final angiogram was performed that showed excellent stent expansion, no residual stenosis and VIV-3 flow. Guidewire and guide catheter were removed. 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 * Mid Circumflex: 95% stenosis treated with a AB TREK 2.50X30 RX BALLOON, ESCOBAR Phipps RAFAEL 3.0X38 KELLIE, and ESCOBAR GASTON EUPHORA RX [id number] BALLOON. 0% residual stenosis, VIV: 3 flow. Conclusions 1. 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 3. Mid Circumflex was treated with a Balloon, Drug Eluting Stent, and Balloon. Recommendations * Continue eliquis. We will add plavix. * Aggressive risk factor modification. * Outpatient cardiology follow up in 2 weeks. Interventional RX Recommendation: PCI w/o planned CABG Diagnostic RX Recommendation: PCI w/o planned CABG Anticoagulation: Heparin Pressures Phase:Rest AO : 85 / 76 ( 79 ) @ 9:44:00 AM 101 / 85 ( 92 ) @ 9:56:00 AM 103 / 82 ( 94 ) @ 10:03:00 AM 90 / 74 ( 79 ) @ 10:06:00 AM 109 / 87 ( 98 ) @ 10:08:00 AM 112 / 91 ( 102 ) @ 10:08:00 AM Clinical Evaluation EBL: 5mL-10mL Procedural Details Pre-Procedure Time Out. Identified patient by full name and date of as verbalized by the patient/guarantor. Does the consent match the physician's order: Yes. Accurate & Complete Informed Consent: Yes. Inpatient/Outpatient History & Physical on Chart: Yes. If H&P is completed, is and addenduem needed: No; If yes, is the addendum complete: N/A. Visualize and Verify Site with Patient/Guarantor: N/A. Relevant Radiology Images available: Yes. Pre-op teaching completed and patient verbalized understanding. The risks, benefits, and alternatives of sedation and/or procedure were discussed by physician. The patient agrees to continue. Procedure started. Physician arrived. [facility] Clinical Fraility Score: 5: Mildly Frail. 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 Chest Pain Symptom Assessment: Typical Angina Symptoms. Correct patient, site and procedure confirmed by cath team. Current diagnosis: NSTEMI. A 18 gauge IV was started in the right anticubital using aseptic technique. IV Fluids: 0.9% NaCl at KVO. 0 mL infused prior to fence laborer. Oxygen started at 2liters/min via nasal canula. right groin was prepped with chloroprep then draped in the usual sterile fashion. right radial was prepped with chloroprep then draped in the usual sterile fashion. Baseline sample Acquired. HR: 102 BPM. Lidocaine 1% infiltrated to the right radial. Arterial access obtained. A 5 japanese TIG catheter in over wire. Multiple views taken of left coronary artery. Catheter redirected to the RCA. Multiple views taken of right coronary artery. Catheter removed over the exchange wire. 6 japanese XB 3.5 guide catheter was inserted over the wire. Runthrough guidewire was advanced through the guide catheter to lesion in the mid Circ. Inflation number : 1 A AB TREK 2.50X30 RX BALLOON was prepped and advanced across the Mid CX , then inflated to 12 MARCELA for 0:12 seconds. Inflation number: 2 The AB TREK 2.50X30 RX BALLOON was reinflated across the Mid CX, to 12 MARCELA for 0:10 seconds. Balloon out. Inflation Number : 3 A MDT R RAFAEL 3.0X38 KELLIE -Lot Number# _[id number] EXP: 01/09/2026 was prepped and advanced across the Mid CX. The stent was deployed at 12 MARCELA for 0:17 seconds. Stent balloon out over wire. Results checked. Inflation number : 4 A MDT NC EUPHORA RX [id number] BALLOON was prepped and advanced across the Mid CX , then inflated to 20 MARCELA for 0:13 seconds. Inflation number: 5 The MDT NC EUPHORA RX [id number] BALLOON was reinflated across the Mid CX, to 20 MARCELA for 0:09 seconds. Balloon out. ACT drawn. Results out of range high seconds. Therapeutic limits - pre-heparin administration 90-150 seconds and monitoring heparin during a vascular procedure >250 seconds. Guide catheter out. A TR Band was successful obtaining hemostatsis at the Right Radial artery insertion site. Post Procedure: Pulses reassessed and unchanged. PERRLA. Strong, equal hand steam setter bilaterally. No VTE prophylaxis required. Medication's Wasted: Other = Fentanyl 50mcg Versed 1 mg. Medication's Wasted: Nitro = 49.8 mg. Total IV fluids: 50 mL. Vital chart was stopped. Complications: None. Estimated blood loss: 5mL-10mL. Responsiveness - Normal response to verbal stimuli; alert and oriented, PERRLA. Airway - Unaffected, no intervention required; spontaneous ventilation. Circulation: W/N/L, pulses unchanged. Nausea/Vomiting: No. Procedure completed. Patient transferred by bed to CPRU. Access Site Site: Right Radial artery Sheath Size: 6 Fr Hemostasis Method: TR Band Hemostasis Success: Successful Procedure Medications Start: 8:34 AM Stop: 8:34 AM Medication: Benadryl Amount: 25 mg Route: I.V. Start: 8:37 AM Stop: 8:37 AM Medication: Versed Amount: 1 mg Route: I.V. Start: 8:38 AM Stop: 8:38 AM Medication: Fentanyl Amount: 25 mcg Route: I.V. Start: 8:40 AM Stop: 8:40 AM Medication: Nitrogylcerin Amount: 200 mcg Route: I.A. Start: 8:42 AM Stop: 8:42 AM Medication: Heparin Amount: 5000 units Route: I.V. Start: 8:50 AM Stop: 8:50 AM Medication: Heparin Amount: 5000 units Route: I.V. Start: 9:08 AM Stop: 9:08 AM Medication: Fentanyl Amount: 25 mcg Route: I.V. I, the attending physician, have reviewed and verified all procedure medications. Yes, all medications given per verbal order History/Risk Factors Hypertension: Yes Dyslipidemia: No Peripheral Arterial Disease (PAD): No Myocardial Infarction (VA): No Obesity: Yes Renal Disease: No Tobacco Use: Never Prior Interventions PCI: No CABG: No Valve Surgery: No Report Signatures Finalized by Juwan Cook MD on 08/11/2023 06:14 PM
[2023-07-30] MEDS: clopidogrel 300 mg Tablet 600 MG PO (06:52)
--- NOTE | 2023-07-30 08:32 | W.PM.OPSUD ---
Surgery/Procedure H&P Update DATE OF PROCEDURE: July 30, 2023 DATE H&P PERFORMED: 07/30/23 H&P UPDATE INFORMATION: I have reviewed H&P completed within last 30 days, I have examined patient prior to procedure and No changes to prior documentation PREOP DIAGNOSIS: NSTEMI PRIMARY INDICATION FOR PROCEDURE: NSTEMI PLANNED PROCEDURE: Left heart cath with possible percutaneous coronary intervention PATIENT REASSESSED PRIOR TO SEDATION, WITH NO CHANGE NOTED: Yes PHYSICAL EXAM: alert, oriented x 3, clear to auscultation bilaterally and regular rate & rhythm AIRWAY EVAL/ANESTHESIA PLAN: normal airway, ASA III, Local Anesthesia, Risks, benefits & alternatives of sedation and/or procedure discussed and Patient agrees to continue as planned ADDITIONAL INFORMATION: Moderate sedation
--- NOTE | 2023-07-30 09:01 | PC.PHAR ---
pt not in room-will check back to complete med rec
--- NOTE | 2023-07-30 09:17 | PC.CHAP ---
Pastoral Care Encounter/Spiritual Assessment Type of Contact [] Declined field scout visit [] Patient/Family/Request visit [] Outpatient visit [] Follow-up visit [] Physician referral [] Code/Alert [x] Routine visit [] Staff referral [] Actively dying [] Patient sleeping [x] Family support [] [] Out of room [] Palliative care [] [] Receiving care in room [] Pre-surgical visit [] Trauma [] Long length of stay [] ICU visit [] Other: Relational/Emotional Strength [x] Patient feels connected with others/family/visitors/staff [] Distress [] Loneliness/isolation [] Abandonment Spirituality of Patient [x] Person of Melba [] Attends Anabaptism of their Melba [x] Believes in Prayer [] Reads Bible or Gnosticism materials [] There are Spiritual issues to be addressed 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 Interventions [x] Prayer [x] Active listening [] Non-anxious presence [x] Spiritual/emotional support [] Crisis/trauma care [] Spiritual counseling [] Bereavement support [] Provided bereavement packet [] Provided Bible/devotional materials [] Provided toy/stuffed animal, coloring book to patient or family member [] Provided Communion [] Anointing/Cerritos [] Salvation x] Completed spiritual assessment [] Other: Impact on Illness or Injury [] Angry [] Fearful [] Anxious [] Often cries [] Exhaustion [] Unable to work [] Unable to attend quaker [] Unable to walk/stand [] Unable to read [] Unable to drive [] Unable to eat/drink [] Unable to sleep [] Unable to be with family [] Patient intubated [] Other: Summary Time spent with patient 5 min
--- NOTE | 2023-07-30 09:25 | SUR.EXTENDED ---
Received the patient back from the computer laboratory technician via bed s/p PCI of the CX. A & 0 x 3. rn lpn cna placed and vital signs obtained. TR band intact to the right wrist. No bleeding or hematoma noted. Palpable radial pulse. No other assessment changes noted from pre cath assessment. Will transfer to room 101 after recovery. Family at bedside. No concerns voiced at this time.
--- NOTE | 2023-07-30 10:10 | SUR.EXTENDED ---
TRANSFER TO 101 PATIENT TRANSFERRED VIA BED TO ROOM 101.
--- NOTE | 2023-07-30 10:12 | PC.NURSE ---
Patient transported to CSU via bed at this time. at bedside. Radial TR band site checked with KEN Stout.
[2023-07-30] MEDS: FUROsemide 40 mg Tablet PO (10:20)
[2023-07-30] MEDS: potassium chloride ER 10 mEq Tablet PO ×3 (10:20→21:12)
[2023-07-30] MEDS: metoprolol tartrate 50 mg Tablet PO ×2 (10:20→17:55)
--- NOTE | 2023-07-30 11:48 | PM.MISC ---
Miscellaneous Note Purpose of Documentation: Brief note Note: Patient has ciritical mid Left circumflex artery stenosis and severe proximal left circumflex artery stenosis. S/p successful revascularization with 1 stent. We will continue plavix. Will resume eliquis tonight. As outpatient will be on plavix 75mg daily and eliquis 5mg bid. Continue tele monitoring tonight. Can be discharged home tomorrow.
--- NOTE | 2023-07-30 14:40 | PC.PHAR ---
pts daughter verified pts medications-states the pt uses lantus solostar ss hs ext shows last filled 06/21/23 30 units daily another rx written 07/02/23 25 units daily pts daughter states the dr told them to use ss hs-pts daughter states the pt was on glipizide er 2.5mg daily but states was increased to 5mg qam-pts daughter states the pts franci licona was dced ext show last filled 05/28/23 5 units tid-
--- NOTE | 2023-07-30 15:52 | PM.PN ---
Subjective Subjective: Reports feeling a little better at this time. Went to central lab technician this morning. Denies chest pain. Was able to eat and drink a little today. Medications: Reviewed: Yes Vitals/I&O/Wt Last Vital Signs Temp 97.5 F L 07/30/23 10:27 Pulse 88 07/30/23 11:57 Resp 10 L 07/30/23 11:57 BP 83/63 07/30/23 11:57 Pulse Ox 99 07/30/23 11:57 O2 Del Method Room Air 07/30/23 11:57 07/30/23 07/30/23 07/30/23 06:59 14:59 22:59 Intake Total 120 / 120 Balance 120 / 120 Weight last 48 hrs Weight 233 lb Weight 233 lb Weight 239 lb Physical Exam Narrative: General: Cooperative patient in no apparent distress. Well developed. HEENT: Normocephalic, Atraumatic. External ears normal. Nasal passages patent without drainage. MMM. Heart: Irregularly irregular. No rubs or murmurs appreciated. Resp: LCTA. No respiratory distress, no use of accessory muscles. Abd: Soft, non-tender. Non-distended. Extremities: No edema. Skin: No rash or lesions on exposed areas. Data 07/29/23 18:49 07/29/23 18:49 A&P Assessment and plan (1) Non-ST elevation NH (NSTEMI): (2) Pacemaker: (3) Chronic anticoagulation: (4) Atrial fibrillation: Qualifiers: Atrial fibrillation type: paroxysmal Qualified Code(s): I48.0 - Paroxysmal atrial fibrillation (5) Hypertension: Qualifiers: Hypertension type: primary hypertension Qualified Code(s): I10 - Essential (primary) hypertension (6) Type 2 diabetes mellitus: Qualifiers: Diabetes mellitus complication status: without complication Diabetes mellitus terminal gauger supervisor insulin use: without terminal gauger supervisor use Qualified Code(s): E11.9 - Type 2 diabetes mellitus without complications (7) BPH loc w urin obs/LUTS: Jenny Lamb is a 82 y/o M admitted for NSTEMI. Continue inpatient management. Cardiology consulted. Cath this morning with stent placement x 1. Started on Plavix and will continue on discharge. Continue Telemetry. Had cath and stent placed this morning. Continue finasteride for BPH symptoms. SSI for TIIDM. A-fib is controlled at this time. Continue Eliquis for anticoagulation, BB for rate control. Restart Eliquis tonight. Plan to discharge tomorrow if remains stable. Code Status: Full IVF: None DVT PPx: Eliquis GI PPx: None ABx: None Diet: Carb Consist Discharge plan: Home when appropriate. Attestations Medical Necessity Statement*: Patient is expected to cross 2 midnights for this hospitalization due to a non-STEMI, cardiology referral and evaluation, cardiac cath with stenting, medication titration, labs. Coding Level of Care Code Acute Code for Chg Fwd Moderate MDM includes number and complexity of problems actively addressed during encounter, amount and/or complexity of data reviewed/ordered and described risk of complication, morbidity or mortality of management as documented Diagnoses Non-ST elevation NH (NSTEMI) I21.4 Pacemaker Z95.0 Chronic anticoagulation Z79.01 Paroxysmal atrial fibrillation I48.0 Atrial fibrillation type: paroxysmal Primary hypertension I10 Hypertension type: primary hypertension Type 2 diabetes mellitus without complication, without long-term current use of insulin E11.9 Diabetes mellitus complication status: without complication Diabetes mellitus terminal gauger supervisor insulin use: without terminal gauger supervisor use BPH loc w urin obs/LUTS N40.1
[2023-07-30] MEDS: apixaban 5 mg Tablet PO (17:55)
[2023-07-30] MEDS: finasteride 5 mg Tablet PO (17:55)
[2023-07-30] MEDS: sodium chloride 0.9% 1,000 ML 75 ML IV (22:46)
[2023-07-31 03:50] VITALS: BP 133/90; PULSE 97; RESP 16; TEMP 36.7; O2SAT 95
[2023-07-31 03:55] LABS: Basophils % 0.3 %; Eosinophils # 0.3 10^3/uL (0.0-0.8); Eosinophils % 2.8 %; Hematocrit 37.7 % (37-53); Lymphocytes # 1.8 10^3/uL (0.8-4.8); Lymphocytes % 19.4 %; Mean Corpuscular HGB Conc 32.6 g/dL (30-55); Mean Corpuscular Hemoglobin 32.3 pg (27-33); Mean Platelet Volume 10.1 fL (7.4-10.4); Monocytes % 11.1 %; Neutrophils # 5.93 10^3/uL (1.8-7.7); Nucleated Red Blood Cells % 0 %; Platelet Count 152 10^3/cmm (157-399); Red Blood Count 3.81 10^6/uL (3.85-5.65); Red Cell Distribution Width 13.2 % (12.1-15.1); White Blood Count 9.13 10^3/uL (3.29-11.43)
[2023-07-31 04:27] LABS: Alanine Aminotransferase 37 U/L (0-41); Albumin Level 3.2 g/dL (3.5-5.2); Alkaline Phosphatase 96 U/L (40-130); Anion Gap 13.2 (5-19); Aspartate Amino Transferase 88 U/L (0-40); Blood Urea Nitrogen 20 mg/dL (8-23); Calcium 9.1 mg/dL (8.5-10.5); Carbon Dioxide 24 mmol/L (22-29); Chloride 105 mmol/L (98-107); Creatinine Clr Calc Pharmacy 59.9614; Free T4 Free Thyroxine 1.36 ng/dL (0.82-1.77); Globulin 3.6 g/dL (1.3-4.6); Glucose 128 mg/dL (65-115); Osmolality Calculated 288 mOsm/kg (285-295); Potassium 5.2 mmol/L (3.5-5.1); Sodium 137 mmol/L (136-145); Thyroid Stimulating Hormone 1.17 uIU/mL (0.27-4.20); Total Bilirubin 0.5 mg/dL (0.15-1.2); Total Protein 6.8 g/dL (6.6-8.7)
[2023-07-31] MEDS: levothyroxine 137 mcg Tablet PO (05:43)
[2023-07-31 06:00] VITALS: PULSE 98
--- NOTE | 2023-07-31 06:11 | P.PN_ITS ---
Subjective 2 Subjective: Patient doing well. no chest pain. Vitals/I&O/Wt Last Vital Signs Temp 98.1 F 07/31/23 03:50 Pulse 97 07/31/23 03:50 Resp 16 07/31/23 03:50 BP 133/90 07/31/23 03:50 Pulse Ox 95 07/31/23 03:50 O2 Del Method Room Air 07/31/23 03:50 07/30/23 07/30/23 07/31/23 14:59 22:59 06:59 Intake Total 120 / 120 120 / 240 Balance 120 / 120 120 / 240 Weight last 48 hrs Weight 233 lb Weight 233 lb Weight 239 lb Physical Exam 2 Narrative: GENERAL: Patient is alert, awake and oriented x3. [] NECK: No jugular vein distension. [] HEENT: No cyanosis. No icterus. No pallor. [] HEART: Irregularly irregular, S1 and S2. No murmur, rub or gallop. [] LUNGS: Clear to auscultate bilaterally. [] CENTRAL NERVOUS SYSTEM: Grossly nonfocal. [] EXTREMITIES: Lower extremities with 1+ edema bilaterally. Data 07/31/23 03:15 07/31/23 03:15 A&P Assessment and plan (1) Non-ST elevation MA (NSTEMI): (2) Hypertension: Qualifiers: Hypertension type: primary hypertension Qualified Code(s): I10 - Essential (primary) hypertension (3) CHF (congestive heart failure): Qualifiers: Heart failure type: unspecified Heart failure chronicity: acute on chronic Qualified Code(s): I50.9 - Heart failure, unspecified (4) Atrial fibrillation: Qualifiers: Atrial fibrillation type: paroxysmal Qualified Code(s): I48.0 - Paroxysmal atrial fibrillation (5) Sick sinus syndrome: (6) Pacemaker: Plan Patient had PCI of proximal to mid left circumflex artery with 1 stent. He is chest pain-free. He is stable to be discharged home on Eliquis and Plavix. Outpatient cardiology follow-up in 2 weeks. Attestations 2 Medical Necessity Statement*: Care expected to cross 2 midnights. Coding Level of Care Code Acute Code for [facility] Diagnoses Non-ST elevation MA (NSTEMI) I21.4 Primary hypertension I10 Hypertension type: primary hypertension Acute on chronic congestive heart failure, unspecified heart failure type I50.9 Heart failure type: unspecified Heart failure chronicity: acute on chronic Paroxysmal atrial fibrillation I48.0 Atrial fibrillation type: paroxysmal Sick sinus syndrome I49.5 Pacemaker Z95.0
[2023-07-31 06:16] VITALS: BMI 35.4
[2023-07-31 07:01] VITALS: BP 135/84; PULSE 94; RESP 25; TEMP 37.1; O2SAT 94
--- NOTE | 2023-07-31 08:59 | PC.SOCIAL ---
IMM Update Pg 2 of IMM updated and reviewed with patient who verbalized understanding. Copy provided.
[2023-07-31] MEDS: potassium chloride ER 10 mEq Tablet PO (09:20)
[2023-07-31] MEDS: clopidogrel 75 mg Tablet PO (09:20)
[2023-07-31] MEDS: metoprolol tartrate 50 mg Tablet PO (09:20)
[2023-07-31] MEDS: apixaban 5 mg Tablet PO (09:20)
--- NOTE | 2023-07-31 09:22 | USCV_ITS ---
Adonis Means Age: 82 Gender: M : 1940 Exam Date: 07/31/2023 10:14 Ordering Phys: Reece Castaneda MD Technologist: Exam Location: [facility] [place] Indication: post stents BP: 134 / 85 HR: 102 Rhythm: Sinus Technical Quality: Adequate MEASUREMENTS (Male / Female) Normal Values 2D ECHO LV Diastolic Diameter PLAX 4.7 cm 4.2 - 5.9 / 3.9 - 5.3 cm IVS Diastolic Thickness 1.6 cm 0.6 - 1.0 / 0.6 - 0.9 cm IVS Systolic Thickness 1.7 cm LVPW Diastolic Thickness 1.4 cm 0.6 - 1.0 / 0.6 - 0.9 cm LVPW Systolic Thickness 1.8 cm LVOT Diameter 2.1 cm LV Ejection Fraction 2D Teich 58.1 % LV Ejection Fraction MOD 2C 67.1 % LV Ejection Fraction 2C AL 66.8 % LA Diameter 4.3 cm RA Systolic Volume 4C AL 37.8 ml RA Systolic Volume 4C MOD 35.5 ml Aorta at Sinotubular Diameter 2.9 cm IVC Diameter 1.9 cm M-MODE LA Ao Ratio MM 1.3 AV Cusp Separation MM 1.5 cm DOPPLER AV Peak Velocity 176.0 cm/s LVOT Peak Velocity 96.0 cm/s AV Area Cont Eq vti 2.4 cm squared AV Area Cont Eq pk 1.9 cm squared MV Peak Velocity 110.0 cm/s MV Area PHT 6.8 cm squared Mitral E to A Ratio 2.1 TV Peak Velocity 149.5 cm/s TR Peak Velocity 193.0 cm/s TR Peak Gradient 14.9 mmHg TV Peak E Velocity 90.0 cm/s Right Atrial Pressure 3.0 mmHg Pulmonary Artery Systolic Pressu 17.9 mmHg PV Peak Velocity 88.0 cm/s FINDINGS Left Ventricle Left ventricle is normal size. LV systolic function is normal with EF of 55 to 60%. No regional wall motion abnormalities are seen. Right Ventricle Normal in size and function Right Atrium Normal in size Left Atrium Normal in size Mitral Valve Structurally normal mitral valve. Mild mitral regurgitation. Aortic Valve Aortic valve is thickened. No significant stenosis or regurgitation. Tricuspid Valve Mild tricuspid regurgitation. Insufficient TR jet to calculate RVSP. Pulmonic Valve Not well visualized Pericardium Normal Aorta Normal in size IVC Appears to be normal CONCLUSIONS LV systolic function is normal with EF of 55 to 60%. Mild mitral regurgitation. Mild tricuspid agitation Compared to prior echocardiogram from 2022, no significant changes are seen Juwan Cook MD (Electronically Signed) Final Date: 31 July 2023 17:53 S
--- NOTE | 2023-07-31 10:01 | P.DS_ITS ---
Discharge Providers Date of Admission: 07/29/23 19:49 Date of Discharge: July 31, 2023 Attending Provider at Admission: Carlos Ordoñez DO Attending Provider at Discharge: Reece Castaneda MD Primary Care Provider: Sirena Wong MD Diagnoses at Discharge Discharge Diagnosis (1) Non-ST elevation MS (NSTEMI): Status: Acute (2) Pacemaker: Status: Acute (3) Chronic anticoagulation: Status: Acute (4) Atrial fibrillation: Status: Chronic Qualifiers: Atrial fibrillation type: paroxysmal Qualified Code(s): I48.0 - Paroxysmal atrial fibrillation (5) Hypertension: Status: Chronic Qualifiers: Hypertension type: primary hypertension Qualified Code(s): I10 - Essential (primary) hypertension (6) Type 2 diabetes mellitus: Status: Chronic Qualifiers: Diabetes mellitus complication status: without complication Diabetes mellitus buttermaker helper insulin use: without [facility] use Qualified Code(s): E11.9 - Type 2 diabetes mellitus without complications (7) BPH loc w urin obs/LUTS: Status: Acute Reason for Visit Reason for Visit: chest pain Brief History: History as per HPI: Adonis Means is a 82 year old male with atrial fibrillation newly diagnosed and diabetes mellitus and recently placed pacemaker presents with chest pressure. He awoke earlier than usual at 0600 with chest pressure. This discomfort was also in his left shoulder and down his left arm. He denies any trouble breathing however his says that he looked short of breath. His symptoms lasted all day did not get worse did not get better. He did have to lay down. Eventually at 430 he told his that the pain in his arm was getting too uncomfortable and they came to the emergency room. Patient denies history of MS or CVA. He has never had this type of pain prior. No history of stress test or cardiac cath. He does have a history of fluid buildup that occurred February 2023 when he was found to have atrial fibrillation. Echo at that time was negative for LV dysfunction or right-sided heart dysfunction. Hospital Course Hospital Course Patient was admitted to the hospital further evaluation and management of chest pain. He was found to have non-ST elevation MS. Cardiology was consulted. He underwent cardiac angiogram and PCI with 1 KELLIE on 07/29. Complete cardiac catheterization report is not available currently. Hospital stay was unremarkable. During hospitalization he was found to have slightly elevated heart rate and blood pressure for which his home dose of metoprolol was increased to 75 mg twice daily. He has been discharged in hemodynamically stable condition on adjusted his metoprolol. Plavix 75 mg daily has been added to Eliquis home dose. Physical Exam Narrative: General: Cooperative patient in no apparent distress. Well developed. HEENT: Normocephalic, Atraumatic. External ears normal. Nasal passages patent without drainage. MMM. Heart: Irregularly irregular. No rubs or murmurs appreciated. Resp: LCTA. No respiratory distress, no use of accessory muscles. Abd: Soft, non-tender. Non-distended. Extremities: No edema. Skin: No rash or lesions on exposed areas. Discharge Data Studies Completed and Pending Completed Studies During Hospitalization Category Date Time Status XR chest 1V portable [id number] Stat Exams 07/29/23 18:34 Completed Pending at discharge Category Date Time Status CO FOUNDER AND CHIEF STRATEGY OFFICER request for service Routine Exams 07/30/23 06:49 Taken B12 [Vitamin B12] Routine Lab 07/31/23 03:15 Received Complete Blood Count w/Auto AM LABS Lab 08/01/23 04:00 Ordered Comprehensive Metabolic Panel AM LABS Lab 08/01/23 04:00 Ordered Folate Level AM LABS Lab 08/01/23 04:00 Ordered MAG [Magnesium] AM LABS Lab 08/01/23 04:00 Ordered MAG [Magnesium] AM LABS Lab 08/02/23 04:00 Ordered MAG [Magnesium] AM LABS Lab 08/03/23 04:00 Ordered TIBC [Total Iron Binding Capacity] Routine Lab 07/31/23 03:15 Received CV. echo complete* [id number] Routine Ultrasound 07/31/23 09:22 Ordered Radiology Impressions Chest X-Ray 07/29/23 18:34 IMPRESSION: No acute findings. Laboratory Results WBC 9.13 10^3/uL (3.29-11.43) 07/31/23 03:15 RBC 3.81 10^6/uL (3.85-5.65) L 07/31/23 03:15 Hgb 12.30 g/dL (11.27-16.99) 07/31/23 03:15 Hct 37.7 % (37-53) 07/31/23 03:15 MCV 99.0 fl (82-101) 07/31/23 03:15 MCH 32.3 pg (27-33) 07/31/23 03:15 MCHC 32.6 g/dL (30-55) 07/31/23 03:15 RDW 13.2 % (12.1-15.1) 07/31/23 03:15 Plt Count 152 10^3/cmm (157-399) L 07/31/23 03:15 MPV 10.1 fL (7.4-10.4) 07/31/23 03:15 Neut % (Auto) 65.0 % 07/31/23 03:15 Lymph % (Auto) 19.4 % 07/31/23 03:15 Victoria % (Auto) 11.1 % 07/31/23 03:15 Eos % (Auto) 2.8 % 07/31/23 03:15 Baso % (Auto) 0.3 % 07/31/23 03:15 Neut # (Auto) 5.93 10^3/uL (1.8-7.7) 07/31/23 03:15 Lymph # (Auto) 1.8 10^3/uL (0.8-4.8) 07/31/23 03:15 Victoria # (Auto) 1.0 10^3/uL (0.2-0.9) H 07/31/23 03:15 Eos # (Auto) 0.3 10^3/uL (0.0-0.8) 07/31/23 03:15 Baso # (Auto) 0.0 10^3/uL (0.0-0.1) 07/31/23 03:15 Nucleated RBC % (auto) 0 % 07/31/23 03:15 Nucleated RBCs # 0.0 /100WBC 07/31/23 03:15 PT 15.30 SECONDS (12.1-14.9) H 07/29/23 18:49 INR 1.17 (0.8-1.2) 07/29/23 18:49 Sodium 137 mmol/L (136-145) 07/31/23 03:15 Potassium 5.2 mmol/L (3.5-5.1) H 07/31/23 03:15 Chloride 105 mmol/L (98-107) 07/31/23 03:15 Carbon Dioxide 24 mmol/L (22-29) 07/31/23 03:15 Anion Gap 13.2 (5-19) 07/31/23 03:15 BUN 20 mg/dL (8-23) 07/31/23 03:15 Creatinine 1.1 mg/dL (0.7-1.2) 07/31/23 03:15 GFR Calculation Not Reportable 07/31/23 03:15 Glucose 128 mg/dL (65-115) H 07/31/23 03:15 Calculated Osmolality 288 mOsm/kg (285-295) 07/31/23 03:15 Calcium 9.1 mg/dL (8.5-10.5) 07/31/23 03:15 Total Bilirubin 0.5 mg/dL (0.15-1.2) 07/31/23 03:15 AST 88 U/L (0-40) H 07/31/23 03:15 ALT 37 U/L (0-41) 07/31/23 03:15 Alkaline Phosphatase 96 U/L (40-130) 07/31/23 03:15 Troponin T Baseline 153 ng/L (0-15) H* 07/29/23 18:49 Troponin T 120 Minute 443.3 ng/L (0-15) H 07/29/23 20:49 Delta Troponin T 290.3 ABS# (0-10) H* 07/29/23 20:49 Troponin T Hi Sens 6Hr 1131 ng/L (0-15) H 07/30/23 00:40 Troponin T Hi Sens 6Hr Delta 978 ng/L (0-12) H* 07/30/23 00:40 Total Protein 6.8 g/dL (6.6-8.7) 07/31/23 03:15 Albumin 3.2 g/dL (3.5-5.2) L 07/31/23 03:15 Globulin 3.6 g/dL (1.3-4.6) 07/31/23 03:15 Triglycerides 240 mg/dL (0-150) H 07/30/23 00:40 Cholesterol 241 mg/dL (0-200) H 07/30/23 00:40 LDL Cholesterol, Calc 156 mg/dL (50-129) H 07/30/23 00:40 HDL Cholesterol 37 mg/dL (60-100) L 07/30/23 00:40 LDL/HDL Ratio 4.22 RATIO (0.00-3.22) H 07/30/23 00:40 Cholesterol/HDL Ratio 6.51 mg/dL (1.0-5.00) H 07/30/23 00:40 Lipase 28 U/L (13-60) 07/29/23 18:49 TSH 1.17 uIU/mL (0.27-4.20) 07/31/23 03:15 Free T4 1.36 ng/dL (0.82-1.77) 07/31/23 03:15 Vitals Last Vital Signs Temp 98.7 F 07/31/23 07:01 Pulse 94 07/31/23 07:01 Resp 25 H 07/31/23 07:01 BP 135/84 07/31/23 07:01 Pulse Ox 94 07/31/23 07:01 O2 Del Method Room Air 07/31/23 07:01 Discharge Plan Discharge Patient Disposition: Home Condition: Stable Prescriptions: New clopidogrel 75 mg Tablet 75 mg PO DAILY Qty: 30 0RF Continued (DME) blood-glucose meter Kit See Rx Instructions .Route Rx Instructions: use to test blood sugar once daily glipizide 5 mg tablet extended release 24hr 5 mg PO DAILY 30 Days Qty: 30 2RF potassium chloride 10 mEq tablet,ER particles/crystals 10 meq PO TID 30 Days Qty: 90 2RF furosemide 40 mg tablet 40 mg PO QAM galantamine 4 mg tablet 4 mg PO BID 90 Days Qty: 180 3RF Rx Instructions: administer with AM and PM meals (DME) FreeStyle Danish 14 Day Sensor Kit See Rx Instructions .ROUTE .MEDSUPPLY Qty: 2 12RF Rx Instructions: As directed (DME) FreeStyle Danish 14 Day [place] Misc See Rx Instructions .ROUTE .MEDSUPPLY Qty: 1 0RF Rx Instructions: As directed (DME) Accu-Chek Angely Plus test strp Strip See Rx Instructions .ROUTE .COMPLEX Qty: 100 11RF Dose Instruction: Check blood sugar 1-2 x daily Rx Instructions: Use to test blood sugars 3 times daily (DME) lancets Misc See Rx Instructions .Route Qty: 200 11RF Rx Instructions: use to check blood sugar three times daily (DME) pen needle, diabetic [BD Ultra-Fine Short Pen Needle] 31 gauge x 5/16 needle See Rx Instructions .Route Qty: 1200 0RF Rx Instructions: Use to test blood sugar 4 times daily Eliquis 5 mg tablet 5 mg PO BID Qty: 180 3RF ipratropium-albuterol 0.5 mg-3 mg(2.5 mg base)/3 mL solution for nebulization 3 ml INHALATION Q6H PRN (Reason: Wheezing) tamsulosin 0.4 mg capsule 0.4 mg PO DAILY Lantus Solostar U-100 Insulin 100 unit/mL (3 mL) insulin pen See Rx Instructions .ROUTE .COMPLEX Rx Instructions: sliding scale subcutaneously at bedtime magnesium L-lactate [Magtab] 84 mg Tablet Extended Release 84 mg PO QAM levothyroxine 137 mcg tablet 137 mcg PO QAM finasteride 5 mg tablet 5 mg PO QAM Changed metoprolol tartrate 50 mg tablet 75 mg PO BID Qty: 180 3RF Discharge Orders: Discharge Order (Routine); Ordered 07/31/23 Ordered By: Reece Castaneda Referrals: Adriana Giordano FNP [Nurse Practitioner] - 08/14/23 1:30 pm Sirena Wong MD [Primary Care Provider] - 08/19/23 1:00 pm Discharge Diet: Cardiac and Diabetic Discharge Activity: Resume usual activity and Increase activity as tolerated Patient Instructions: Coronary Angioplasty (DC), CHF Stoplight, Opioid Safety, Post Angiogram Home Care Instructions Activity Restrictions/Additional Instructions: Dose of metoprolol has been increased to 75 mg twice daily. Plavix has been added along with Eliquis. Please follow with the primary care provider onsite appointment within next 2 weeks. You will also need to follow-up with Adriana Giordano nurse practitioner in cardiology office on set appointment. Discharge Attestations Time Spent in Discharge Care*: greater than 30 min Specific Discharge Activities: educating patient, educating and/or supporting family/caregiver, discussing with pcp/other providers, discussing with disease case manager/social workers/dc planners, documenting/other paperwork and evaluating patient/reviewing data Status at Discharge: Cognitive status at discharge: cognitively intact , Behavioral status at discharge: cooperative , Functional status at discharge: independent ambulation , Overall status at discharge: patient is back to baseline Quality Metrics Clinical Quality Measures [ No reported AMI, CVA or VTE this stay] Coding Level of Care Code 74814 Total time (in minutes) for Discharge: 60 Diagnoses Non-ST elevation MS (NSTEMI) I21.4 Pacemaker Z95.0 Chronic anticoagulation Z79.01 Paroxysmal atrial fibrillation I48.0 Atrial fibrillation type: paroxysmal Primary hypertension I10 Hypertension type: primary hypertension Type 2 diabetes mellitus without complication, without long-term current use of insulin E11.9 Diabetes mellitus complication status: without complication Diabetes mellitus buttermaker helper insulin use: without [facility] use BPH loc w urin obs/LUTS N40.1
[2023-07-31 10:21] VITALS: BP 135/84; PULSE 94; RESP 25; TEMP 37.1; O2SAT 94
[2023-07-31 10:42] LABS: Iron 42 ug/dL (59-158); Percent Saturation 18.8 % (20-50); Total Iron Binding Capacity 223 mcg/dl; Unsaturated Iron Binding 181 ug/dL (112-347); Vitamin B12 397 pg/mL (232-1245)
== END 2023-07-31 12:07 | disposition home or self-care (01) | DRG 321 ==
LOC: ER 22:30 → ER IP 23:46 → CSU 07-30 07:27 → ER IP 07-30 07:27
PROVIDERS: Family Medicine; Internal Medicine; Admitting Provider Internal Medicine; Emergency Provider Emergency Medicine; PCP Family Medicine; Visit Provider Student in an Organized Health Care Education/Training Program
PROC: 027034Z Dilation of Coronary Artery, One Artery with Drug-eluting Intraluminal Device, Percutaneous Approach (ICD-10-PCS; principal; 2023-07-30 09:00)
PROC: 027034Z Dilation of Coronary Artery, One Artery with Drug-eluting Intraluminal Device, Percutaneous Approach (ICD-10-PCS; 2023-07-30 09:00)
DX: I21.4 Non-ST elevation (NSTEMI) myocardial infarction (principal); I50.33 Acute on chronic diastolic (congestive) heart failure; I48.0 Paroxysmal atrial fibrillation; E11.9 Type 2 diabetes mellitus without complications; I11.0 Hypertensive heart disease with heart failure; N40.1 Benign prostatic hyperplasia with lower urinary tract symptoms; I45.10 Unspecified right bundle-branch block; I49.5 Sick sinus syndrome; Z79.01 Long term (current) use of anticoagulants; Z79.84 Long term (current) use of oral hypoglycemic drugs; Z79.4 Long term (current) use of insulin; Z95.0 Presence of cardiac pacemaker
CPT/HCPCS: 36415; 71045; 80053; 80061; 82607; 83540; 83550; 83690; 84439; 84443; 84484; 85025; 85347; 85610; 93005; 93306; 93454; 96372; 96374; 96375; 96376; 99152; 99153; C1725; C1769; C1874; C1887; C1894; C9600; J1200; J1644; J1650; J2250; J3010; J3490; J7030; Q9967

== ENCOUNTER → 2023-08-14 13:22 | Outpatient (BNVA) | payer MEDICARE, SELFPAY | PROVIDERS: PCP Family Medicine; Visit Provider Nurse Practitioner Family | DX: I25.10 Atherosclerotic heart disease of native coronary artery without angina pectoris (principal); Z87.891 Personal history of nicotine dependence; Z95.0 Presence of cardiac pacemaker; I11.0 Hypertensive heart disease with heart failure; I50.9 Heart failure, unspecified | CPT/HCPCS: 99213 ==

== ENCOUNTER → 2023-09-18 15:06 | Outpatient (BNVA) | payer MEDICARE, SELFPAY | PROVIDERS: PCP Family Medicine; Visit Provider Family Medicine | DX: E11.9 Type 2 diabetes mellitus without complications (principal); I10 Essential (primary) hypertension; B37.2 Candidiasis of skin and nail | CPT/HCPCS: 80048; 83036 ==

== ENCOUNTER → 2023-10-09 10:56 | Outpatient (BNVA) | payer MEDICARE, SELFPAY | PROVIDERS: PCP Family Medicine; Visit Provider Nurse Practitioner Family | DX: I11.0 Hypertensive heart disease with heart failure (principal); I50.9 Heart failure, unspecified; I48.0 Paroxysmal atrial fibrillation; I25.10 Atherosclerotic heart disease of native coronary artery without angina pectoris; Z95.0 Presence of cardiac pacemaker; Z87.891 Personal history of nicotine dependence; Z79.01 Long term (current) use of anticoagulants | CPT/HCPCS: 99214 ==

== ENCOUNTER → 2023-10-29 11:08 | Outpatient (BNVA) | payer MEDICARE, SELFPAY | PROVIDERS: PCP Family Medicine; Visit Provider Internal Medicine | DX: Z45.010 Encounter for checking and testing of cardiac pacemaker pulse generator [battery] (principal) | CPT/HCPCS: 93296 ==

== ENCOUNTER → 2023-11-28 11:28 | Outpatient (BNVA) | payer MEDICARE, SELFPAY | PROVIDERS: PCP Family Medicine; Visit Provider Family Medicine | DX: I50.9 Heart failure, unspecified (principal) | CPT/HCPCS: 80048; 83880 ==

== ENCOUNTER → 2023-12-05 14:00 | Outpatient (BNVA) | payer MEDICARE, SELFPAY | PROVIDERS: PCP Family Medicine; Visit Provider Family Medicine | DX: I50.9 Heart failure, unspecified (principal) | CPT/HCPCS: 80048; 83880 ==

== ENCOUNTER → 2023-12-18 11:30 | Outpatient (BNVA) | payer MEDICARE, SELFPAY | PROVIDERS: PCP Family Medicine; Visit Provider Family Medicine | DX: I10 Essential (primary) hypertension (principal); E11.9 Type 2 diabetes mellitus without complications; E03.9 Hypothyroidism, unspecified; I50.9 Heart failure, unspecified | CPT/HCPCS: 80048; 83036; 84439; 84443; 84481 ==

== ENCOUNTER → 2024-02-27 09:57 | Outpatient (BNVA) | payer MEDICARE, SELFPAY | PROVIDERS: PCP Family Medicine; Visit Provider Nurse Practitioner Family | DX: E78.2 Mixed hyperlipidemia (principal); I11.0 Hypertensive heart disease with heart failure; I50.9 Heart failure, unspecified; I48.0 Paroxysmal atrial fibrillation; Z95.0 Presence of cardiac pacemaker | CPT/HCPCS: 99214 ==

== ENCOUNTER → 2024-03-02 10:39 | Outpatient (BNVA) | payer MEDICARE, SELFPAY | PROVIDERS: PCP Family Medicine; Visit Provider Family Medicine | DX: E03.9 Hypothyroidism, unspecified (principal); E07.9 Disorder of thyroid, unspecified | CPT/HCPCS: 84439; 84443; 84481 ==

== ENCOUNTER → 2024-03-25 11:39 | Outpatient (BNVA) | payer MEDICARE, SELFPAY | PROVIDERS: PCP Family Medicine; Visit Provider Family Medicine | DX: N40.1 Benign prostatic hyperplasia with lower urinary tract symptoms (principal); R35.0 Frequency of micturition; I50.9 Heart failure, unspecified; E11.9 Type 2 diabetes mellitus without complications; R35.1 Nocturia; Z12.5 Encounter for screening for malignant neoplasm of prostate | CPT/HCPCS: 80048; 81000; 83036; 84153 ==

== ENCOUNTER → 2024-03-26 09:16 | Outpatient (BNVA) | payer MEDICARE, SELFPAY | PROVIDERS: PCP Family Medicine; Referring Provider Family Medicine; Visit Provider Family Medicine | DX: N40.1 Benign prostatic hyperplasia with lower urinary tract symptoms (principal); R31.0 Gross hematuria | CPT/HCPCS: 81000; 87077; 87086; 87184 ==

== ENCOUNTER → 2024-04-29 10:26 | Outpatient (BNVA) | payer MEDICARE, SELFPAY | PROVIDERS: PCP Family Medicine; Visit Provider Family Medicine | DX: R35.0 Frequency of micturition | CPT/HCPCS: 81000 ==

== ENCOUNTER 2024-05-04 12:07 | Outpatient (CLI) | payer MEDICARE, SELFPAY ==
--- NOTE | 2024-05-04 12:15 | US_ITS ---
WS: [id number] URINARY BLADDER ULTRASOUND HISTORY: R35.0 - Frequency of micturition COMPARISON: None available. Urinary bladder is moderately distended. No intraluminal filling defect. No free fluid adjacent to th e urinary bladder. Bilateral ureteral jets are noted in the urinary bladder. Bladder Wall Thickness: No focal bladder wall thickening or mass. Bladder Prevoid: 8.2 cm x 7.0 cm x 7.0 cm. Prevoid volume: 207.2 ml. No post void volume obtained. Patient elected not to attempt post void imaging. US/US bladder [id number] IMPRESSION: Normally distended urinary bladder. Patient elected not to attempt post void im aging evaluation.
== END 2024-05-04 12:08 | disposition home or self-care (01) ==
LOC: RAD 12:07
PROVIDERS: PCP Family Medicine; Visit Provider Family Medicine
DX: R35.0 Frequency of micturition (principal); N40.1 Benign prostatic hyperplasia with lower urinary tract symptoms; R35.1 Nocturia
CPT/HCPCS: 76857

== ENCOUNTER → 2024-07-22 09:24 | Outpatient (BNVA) | payer MEDICARE, SELFPAY | PROVIDERS: PCP Family Medicine; Visit Provider Internal Medicine | DX: Z45.018 Encounter for adjustment and management of other part of cardiac pacemaker (principal) | CPT/HCPCS: 93296 ==